=== PATIENT | male | born 1950 | race Caucasian/White ===

== ENCOUNTER 2017-07-05 02:36 | Emergency (ER) | payer MEDICARE, OTHER, SELFPAY ==
[2017-07-05 02:37] VITALS: BP 222/96; PULSE 67; RESP 24; TEMP 37.1; O2SAT 96; BMI 34.7
[2017-07-05 03:11] VITALS: BP 189/95; PULSE 67; RESP 18; O2SAT 96
[2017-07-05] MEDS: fentaNYL 100 MCG/2 ML Ampul 25 MCG IV (03:20)
[2017-07-05 03:42] LABS: D-Dimer Quantitative (DVT/PE) 2.81 FEU/ug/m (0.27-0.49)
--- NOTE | 2017-07-05 03:46 | ED.RN ---
LAB CALLS FOR CRITICAL RESULT, D-DIMER 2.81, DR. FOSTER MADE AWARE.
--- NOTE | 2017-07-05 03:57 | VDLE_ITS ---
Reason For Study: pain RIGHT LEFT CFV is compressible, spontaneous, phasic, GSV is normal. competent and demonstrates normal CFV is compressible, spontaneous, phasic, augmentation. competent, and demonstrates normal Procedure augmentation. Exam performed portable in ED. FV is compressible, spontaneous, phasic, The exam was diagnostic. competent and demonstrates normal Difficult study due to pt positioning. augmentation. A preliminary report was called and/or faxed POP V is compressible, spontaneous, phasic, to Dr. Stone. competent and demonstrates normal augmentation. T/P Trunk is compressible. PTV is compressible. LT PerV is compressible. Interpretation Summary There is no evidence of left lower extremity deep vein thrombosis. Left greater saphenous vein appears patent and compressible segmentally. Normal flow patterns right common femoral vein Ordering Physician: Ciaran Stone Performed By: Antonio Olson RVT
[2017-07-05] MEDS: Acetaminophen 500 MG Tablet 1000 MG PO (04:04)
[2017-07-05] MEDS: Morphine 4 MG/ML Syringe IV (04:05)
[2017-07-05] MEDS: fentaNYL 25 MCG Patch TRANSDERM. (04:26)
[2017-07-05 04:30] VITALS: BP 174/93; PULSE 64; RESP 17
--- NOTE | 2017-07-05 05:18 | ED.VISSUMM ---
- ER Visit Summary Date of Service: 07/05/17 Chief Complaint: Left leg pain History of Present Illness: The patient is a [address] Ramos. He has a history of a left total hip arthroplasty June [address] Reilly at [facility]. He was discharged June 22. He was doing well and participating in therapy. He reports that 3 days ago he developed pain in his left calf and foot. He states that it is an aching pain that is 10 out of 10 in severity. It is worsened by laying down. It is partially relieved by oxycodone and Tylenol. He had been using this 1 pill every 4, but for the past 24 hours he has been taking 2 pills every 4 without relief. Patient denies any fever, chills, chest pain, or shortness of breath. 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 Physical Examination: Vitals: Stable. Afebrile. General: Well-nourished and well-developed. Head: Normocephalic atraumatic. Neck: Supple, no lymphadenopathy. No JVD. Nontender. Cardiovascular: Regular rate and rhythm. No murmurs. Respiratory: No respiratory distress. Clear to auscultation bilaterally. Abdominal: Soft, nontender, nondistended, normal bowel sounds. No guarding, rebound, or peritoneal signs. Back: Nontender. Extremities: Incision over the left hip is clean, dry, and intact. There is no erythema or induration. It is minimally tender to palpation. He has mild tenderness palpation over the left calf and a contusion here. He has no palpable cord or Homans sign. No peripheral edema. He has a 2+ dorsalis pedis pulse. Less than 2 second capillary refill. Skin: Normal color, no rash. Neurologic: Alert and oriented ?3. Cranial nerves II through XII are intact. Normal strength and sensation. Psych: Normal affect. Test Results: D-dimer is 2.81. Lower extremity Doppler is negative. Emergency Department Course and Treatment: Patient was given fentanyl IV. This did not improve his pain. He was given a dose of morphine IV, Tylenol p.o., and had a fentanyl patch placed. This did not improve his pain. He was given a dose of oxycodone p.o. Daughter would like to get a Doppler prior to going home. I offered to admit him here for intractable pain. I offered to transfer him to [facility] for intractable pain and on the off chance that this has something to do with his autoimmune limbic encephalitis. She does not want him to be admitted to the hospital. Treatment Plan: He will be discharged with a 25 mcg fentanyl patch instructed to use Tylenol and/or oxycodone for breakthrough pain. Contact the surgeon and their neurologist today for further evaluation. Return to the emergency department for any worsening symptoms. Disposition: To home in improved and stable condition. Impression: 1. Status post left total hip arthroplasty June 21, 2017. 2. Intractable left leg pain. This note was generated with [employer] dictation software. It may contain incorrect words, spelling, and punctuation that were not noted in review of the chart prior to signing ED Disposition - Plan for ED Patient: Chief Complaint: Lower Extremity Injury Instructions: ED Post Op Pain Additional Instructions: Follow-up with your neurologist and surgeon as soon as possible.
[2017-07-05] MEDS: oxyCODONE 5 MG Tablet 10 MG PO (05:36)
[2017-07-05 08:03] VITALS: BP 185/85; PULSE 62; RESP 20; O2SAT 96
== END 2017-07-05 08:05 | disposition home or self-care (01) ==
PROVIDERS: Emergency Provider Emergency Medicine; Family Provider Student in an Organized Health Care Education/Training Program; PCP Student in an Organized Health Care Education/Training Program
DX: M79.662 Pain in left lower leg (principal); M79.672 Pain in left foot; D89.89 Other specified disorders involving the immune mechanism, not elsewhere classified; G47.33 Obstructive sleep apnea (adult) (pediatric); Z96.642 Presence of left artificial hip joint; Z79.82 Long term (current) use of aspirin; Z79.891 Long term (current) use of opiate analgesic; Z79.899 Other long term (current) drug therapy
CPT/HCPCS: 85379; 93971; 96374; 96375; 99285; A4216

== ENCOUNTER → 2017-11-20 11:34 | Outpatient (CLI) | payer MEDICARE, OTHER, SELFPAY ==
[2017-11-20 12:46] LABS: PSA,Total - Annual Screen 0.91 ng/mL (0.00-4.00)
== END ==
PROVIDERS: Family Provider Student in an Organized Health Care Education/Training Program; PCP Student in an Organized Health Care Education/Training Program; Referring Provider Urology; Visit Provider Urology
DX: Z12.5 Encounter for screening for malignant neoplasm of prostate (principal)
CPT/HCPCS: 36415; 84153; G0103

== ENCOUNTER → 2018-04-04 17:34 | Outpatient (CLI) | payer MEDICARE, OTHER, SELFPAY | PROVIDERS: Family Provider Student in an Organized Health Care Education/Training Program; PCP Student in an Organized Health Care Education/Training Program; Referring Provider Otolaryngology; Visit Provider Otolaryngology | DX: J32.9 Chronic sinusitis, unspecified (principal) | CPT/HCPCS: 87070; 87077; 87186; 87205 ==

== ENCOUNTER → 2018-11-28 | Outpatient (CLI) | payer MEDICARE, OTHER, SELFPAY | END | disposition home or self-care (01) | PROVIDERS: Family Provider Student in an Organized Health Care Education/Training Program; PCP Student in an Organized Health Care Education/Training Program; Referring Provider Urology; Visit Provider Urology | DX: Z12.5 Encounter for screening for malignant neoplasm of prostate (principal) | CPT/HCPCS: 36415; 84153; G0103 ==

== ENCOUNTER → 2020-12-27 14:58 | Outpatient (CLI) | payer MEDICARE, OTHER, SELFPAY | PROVIDERS: PCP Student in an Organized Health Care Education/Training Program; Referring Provider Urology; Visit Provider Urology | DX: Z12.5 Encounter for screening for malignant neoplasm of prostate (principal) | CPT/HCPCS: 36415; 84153; G0103 ==

== ENCOUNTER → 2021-07-22 | Outpatient (CLI) | payer MEDICARE, OTHER, SELFPAY | END | disposition home or self-care (01) | LOC: LABSPEC 14:53 | PROVIDERS: PCP Student in an Organized Health Care Education/Training Program; Referring Provider Otolaryngology; Visit Provider Otolaryngology | DX: J01.90 Acute sinusitis, unspecified (principal) | CPT/HCPCS: 87070; 87077; 87186; 87205 ==

== ENCOUNTER 2024-11-15 12:20 | Emergency (ER) | payer MEDICARE, OTHER, SELFPAY ==
[2024-11-15 12:23] VITALS: BP 169/86; PULSE 68; RESP 20; TEMP 36.9; O2SAT 96
--- NOTE | 2024-11-15 12:59 | EX.ED.UPPERE ---
HPI History of Present Illness HPI Narrative: Patient presents with right upper extremity swelling that has been getting worse over the past 2 days. Patient has a history of short-term memory loss and does not remember what happened. Family noted some bruising to his right upper arm. Family also noted a wound on the dorsal aspect of his right forearm. Patient denies any redness or swelling. Patient denies any fevers or chills. Patient denies any paresthesias or weakness. Family states patient's last tetanus was more than 10 years ago. Chief Complaint: Edema Informant: patient and family Onset/Context/Timing Onset: Days (2) Context: Gradual Onset Timing: Continuous Quality of Pain: Dull Location: Right wrist and hand Worsened by: Squeezing his fingers Relieved by: Nothing Associated Symptoms Associated Symptoms: Negative for Parasthesia or Weakness Narrative Tetanus Immunization: >10 years [facility] Medical History (Updated 11/15/24 @ 14:[address] Mack Ward, DO) Short-term memory loss Home Medications ?Medication ?Instructions ?Recorded ?Last Taken ?Type aspirin 81 mg chewable tablet 81 mg PO DAILY@0800 08/22/15 Unknown History citalopram 20 mg tablet 20 mg PO DAILY 08/22/15 Unknown History lacosamide 100 mg tablet (Vimpat) 100 mg PO BID 08/22/15 Unknown History lamotrigine 200 mg tablet 200 mg PO BID 08/22/15 Unknown History (Lamictal) qdioaynn-njz-vcmyd acid 0.4 1 ea PO DAILY 08/22/15 Unknown History mg-lycopene 300 mcg-lutein 250 mcg tablet (Centrum Silver) oxybutynin chloride 5 mg tablet 10 mg PO DAILY 08/22/15 Unknown History prednisone 5 mg tablet 5 mg PO DAILY IMMUNE SYSTEM 08/22/15 Unknown History topiramate 50 mg tablet 100 mg PO BID 08/22/15 Unknown History acetaminophen 500 mg tablet 1,000 mg PO Q8 PAIN 07/05/17 Unknown History (Tylenol Extra Strength) ascorbic acid (vitamin C) 1,000 mg 1,000 mg PO 07/05/17 Unknown History tablet (Vitamin C) ferrous sulfate 325 mg (65 mg 325 mg PO 07/05/17 Unknown History iron) tablet (Iron (ferrous sulfate)) mirabegron 50 mg tablet,extended 50 mg PO DAILY URINARY ISSUES 07/05/17 Unknown History release 24 hr (Myrbetriq) oxycodone 5 mg tablet 10 mg PO Q4H PRN PRN Pain 07/05/17 Unknown History cephalexin 500 mg capsule 500 mg PO Q6 #40 CAPSULES 11/15/24 Unknown Rx Allergy/AdvReac Type Severity Reaction Status Date / Time No Known Allergies Allergy Verified 11/15/24 12:22 Surgical History (Updated 11/15/24 @ 14:[address] Mack Ward DO) Hx of cholecystectomy Social History housing: house Smoking Status: Never smoker ROS ROS ED Constitutional Constitutional ED: Denies chills or fever(s) Eyes Eyes: Denies blurry vision or change in vision ENT ENT ED: Denies rhinorrhea or sore throat Cardiovascular Cardiovascular: Denies chest pain or palpitations Respiratory/Chest Respiratory/Chest: Denies cough or dyspnea Gastrointestinal Gastrointestinal: Denies nausea or vomiting Genitourinary Genitourinary ED: Denies dysuria or hematuria Musculoskeletal Musculoskeletal: Denies back pain or neck pain Integumentary Denies abscess or rash Neurologic Neurologic: Denies headache(s) or weakness Allergic/Immunologic Allergic/Immunologic ED: Denies mouth swelling or urticaria EXAM Physical Exam Const Vital Signs: 11/15/24 12:23 11/15/24 12:37 Temperature 98.4 F Temperature Source Temporal Pulse Rate 68 Respiratory Rate 20 H Respiratory Effort Normal Non-Labored Respiratory Pattern Normal Blood Pressure 169/86 H Blood Pressure Mean 113 Pulse Ox 96 Positive well nourished and well developed General Appearance ED: well developed and NAD HEENT Reports moist mucous membranes Neck full ROM and supple Extremity Extremity Narrative: There is some mild edema and ecchymosis over the medial aspect of the right upper arm. There is no bony crepitance or step-off. There is no deformity noted. There is a superficial healing laceration over the dorsal aspect of the mid forearm. There is no erythema. There is mild warmth. There is edema of the right wrist and hand. There is no ecchymosis. There is no deformity. There is good range of motion. Sensation was intact to light touch in the radial, median, and ulnar areas. Strength is 5/5 in the radial, median, and ulnar areas. Radial pulses are equal bilaterally. Neuro oriented x3, CN's II-XII intact bilaterally, moves all extremities, no focal motor deficits and no sensory deficits noted Sensorium / Orientation: alert Motor Exam: strength 5/5 throughout Psych mental status grossly normal MDM MDM MDM Narrative Medical decision making narrative: Differential diagnosis includes cellulitis, contusion, wound infection, and peripheral edema. CBC will be obtained to assess for leukocytosis and anemia. Basic metabolic profile will be obtained to assess for electrolyte abnormality and renal function. Serum lactate will be obtained to assess for sepsis. PT with INR and PTT will be obtained to assess for coagulopathy. Lab Data Attestation: I reviewed the patient's lab results. Lab results narrative: CBC was reviewed and was within normal limits. Basic metabolic profile was reviewed and was essentially within normal limits. Serum lactate was reviewed and was normal at 1.5. PT with INR and PTT were reviewed and were within normal limits. Treatment and Re-Evaluation Narrative: Patient was given a tetanus booster. Patient was advised of his findings. Patient was instructed to keep the right upper extremity elevated. Patient was given a dose of Keflex here. Patient was given a prescription for Keflex. Patient was instructed to follow-up with his primary care physician in 5 to 7 days. Patient and family understood and were agreeable with the plan. All questions were answered. Discharge Plan Triage Chief Complaint: Edema ED Provider: Mack Ward Dx/Rx/DC Orders Clinical Impression: Abrasion of right forearm, Contusion of right arm, Peripheral edema Instructions: ED Abrasion, ED Peripheral Edema, Unilateral Prescriptions: New cephalexin 500 mg capsule 500 mg PO Q6 Qty: 40 0RF No Action lamotrigine [Lamictal] 200 MG tablet 200 mg PO BID Patient Comments: FOR BRAIN SWELLING prednisone 5 MG tablet 5 mg PO DAILY citalopram 20 MG tablet 20 mg PO DAILY aspirin 81 MG tablet,chewable 81 mg PO DAILY@0800 oxybutynin chloride 5 MG tablet 10 mg PO DAILY topiramate 50 MG tablet 100 mg PO BID nvheqeza-ybc-BS-lycopen-lutein [Centrum Silver] 1 EACH tablet 1 ea PO DAILY lacosamide [Vimpat] 100 MG tablet 100 mg PO BID mirabegron [Myrbetriq] 50 MG tablet extended release 24 hr 50 mg PO DAILY Patient Comments: ascorbic acid (vitamin C) [Vitamin C] 1,000 MG tablet 1,000 mg PO acetaminophen [Tylenol Extra Strength] 500 MG tablet 1,000 mg PO Q8 ferrous sulfate [Iron (ferrous sulfate)] 325 MG tablet 325 mg PO oxycodone 5 MG tablet 10 mg PO Q4H PRN PRN (Reason: Pain) Primary Care Provider: Care Physician,No Primary Referrals: Bob Ramos DO [Non-Staff, Medical] - 5-7 Days Print Language: Cook Islander Disposition Disposition: Home, Self Care
[2024-11-15 13:25] LABS: Hematocrit 44.7 % (40-54); Hemoglobin 15.0 g/dL (13.0-16.5); Immature Granulocytes Count 0.030 X10^3/uL (0.0-0.0); Mean Corp Hgb Conc 33.6 g/dL (32-36); Mean Corpuscular Volume 90.3 fL (80-94); Mean Platelet Vol. 9.5 fl (6.2-12.0); NRBC Flagged by Analyzer 0 % (0-5); Platelet Count 142 K/mm3 (150-450); RBC Distribution Width CV 13.1 % (11.6-14.6); RBC Distribution Width SD 43.0 fl (35.1-43.9); Red Blood Count 4.95 M/mm3 (4.6-6.2); White Blood Count 8.9 K/mm3 (4.4-11.0)
[2024-11-15 13:33] LABS: Prothrombin Time (Protime)PT. 14.0 SECONDS (11.7-14.9)
--- OUTSIDE RECORDS SUMMARY | 2024-11-15 13:38 | XMS RPT_ITS | CCD ---
Author Organization [facility] Care Team Providers Care Hearing Consultant Name Role Phone Juan José Trejo Unavailable Jade Moncada Unavailable Unavailable RAJIV GONZALES Unavailable Unavailable RAJIV GONZALES Unavailable Unavailable RAJIV GONZALES Unavailable Unavailable DANDY RAMOS DO Unavailable Unavailable PROVIDER, UNKNOWN Unavailable Unavailable Unavailable Primary Care Provider Unavailabl e Unavailable Primary Care Provider Unavailabl e Unavailable Primary Care Provider Unavailabl e SELF Referring Unavailable WILLIAMS SEXTON Attending Unavailable WILLIAMS SEXTON Referring Unavailable JOSEF BHATT Attending Unavailable JOSEF BHATT Referring Unavailable WILLIAMS SEXTON Attending Unavailable Allergies Allergy Classification Reported Allergen(s) Allergy Type Date of Onset Reaction(s) Facility (20 sources) Dust; Translations: [DUST] Propensity to adverse reactions 09-21-2005 [facility] Work Phone: (20 sources) Mold Extract; Translations: [MOLD] Drug Allergy 09-21-2005 Intolerance [facility] Work Phone: (20 sources) Primidone; Translations: [PRIMIDONE] Drug Allergy 06-14-2015 Unknown [facility] (20 sources) Tree; Translations: [TREES] Propensity to adverse reactions 09-21-2005 Intolerance [facility] Work Phone: Medications Current Medications Medication Drug Class(es) Dates Sig (Normalized) Sig (Original) [id number] 200 actuat albuterol 0.09 mg/actuat metered dose inhaler (20 sources) beta2-Adrenergic Agonist Start: 08-07-2024 End: 08-07-2024 take 2 puff(s) by inhalation every six hours as needed for wheezing albuterol HFA (PROVENTIL HFA, VENTOLIN HFA) 90 mcg/actuation inhaler Indications: Wheezing Inhale 2 puffs as instructed every 6 hours as needed for wheezing/shortnes s of breath. 8 g 08/07/2024 Active Start: 02-06-2019 End: 08-07-2024 take 2 puff(s) by inhalation every four hours as needed albuterol sulfate (PROAIR RESPICLICK) 90 mcg/actuation aepb Inhale 2 Puffs as instructed every 4 hours as needed. 1 Inhaler 1 02/06/2019 08/07/2024 Discontinued (Course of therapy completed) Comment on above: Inhale 2 Puffs as in structed every 4 hours as needed. amoxicillin 875 mg / clavulanate 125 mg oral tablet (1 source) Penicillin-class Antibacterial Start: 2 End: 2 take 1 tablet by mouth twice daily amoxicillin-clavula iza acid (AUGMENTIN) 875-125 mg per tablet Indications: Acute sinusitis, recurrence not specified, unspecified location Take 1 tablet by mouth twice daily for 10 days. 20 tablet 0 07/14/2021 07/24/2021 Active Comment on above: Take 1 tablet by [facility] twice daily for 10 days. benzonatate 100 mg oral capsule (2 sources) Non-narcotic Antitussive Start: 5 End: 5 take 1 capsule by mouth every eight hours as needed benzonatate (TESSALON PERLE) 100 mg capsule Take 1 capsule by mouth three times a day as needed for cough for up to 7 days. 21 capsule 08/07/2024 08/14/2024 Active Start: 07-14-2021 End: 07-24-2021 take 2 capsules by mouth three times daily as needed benzonatate (TESSALON PERLE) 100 mg capsule Indications: Acute sinusitis, recurrence not specified, unspecified location Take 2 capsules by mouth three times daily as needed for up to 10 days. 60 capsule 0 07/14/2021 07/24/2021 Active Comment on above: Take 2 capsules by [facility] three times daily as needed for up to 10 days. citalopram 20 mg oral tablet (20 sources) Serotonin Reuptake Inhibitor Start: 03-03-2021 End: 04-01-2025 take 1 tablet by mouth once daily citalopram (CELEXA) 20 mg tablet Indications: Recurrent major depression in partial remission Take 1 tablet by mouth once daily. 30 tablet 11 04/01/2024 04/01/2025 Active Start: 10-18-2016 CELEXA 20 MG T ABS daily CITALOPRAM HYDROBROMIDE [id number] Juan José Trejo Comment on above: Take 1 tablet by [facility] th once daily. CPAP/BIPAP/OTHER (20 sources) Start: 07-13-2023 End: 11-27-2050 CPAP/BIPAP/OTHER AutoCPAP 11-20 cmH2O DME [facility] 1 Each 07/13/2023 11/27/2050 Active Start: 07-13-2023 End: 11-27-2050 CPAP/BIPAP/OTHER AutoCPAP 11 -20 cmH2O DME [facility] 1 Each 0 07/13/2023 11/27/2050 Active Start: 03-12-2023 End: 07-13-2023 CPAP/BIPAP/OTHER New supplie s: Pressure change: Setting 11 cm H2O, suitable mask per pt preference, chin strap, head gear, humidity, tubing, lifetime supplies. G47.33 RAIZA 1 Each 03/12/2023 07/13/2023 Discontinued Start: 03-12-2023 End: 07-27-2050 CPAP/BIPAP/OTHER New supplie s: Pressure change: Setting 11 cm H2O, suitable mask per pt preference, chin strap, head gear, humidity, tubing, lifetime supplies. G47.33 RAIZA 1 Each 03/12/2023 07/27/2050 Active Start: 08-22-2022 End: 01-06-2050 CPAP/BIPAP/OTHER Pressure ch maurice: Setting 11 cm H2O, suitable mask per pt preference, chin strap, head gear, humidity, tubing, lifetime supplies. G47.33 RAIZA 1 Each 0 08/22/2022 01/06/2050 Active Start: 05-30-2022 End: 10-14-2049 CPAP/BIPAP/OTHER New set up: Settings 8 - 14 cm H2O, suitable mask per pt preference, chin strap, head gear, humidity, tubing, lifetime supplies. G47.33 RAIZA 1 Each 0 05/30/2022 10/14/2049 Active Comment on above: New set up: Settings 8 - 14 cm H2O, suitable mask per pt preference, chin strap, head gear, humidity, tubing, lifetime supplies. G47.33 RAIZA Pressure change: Set ting 11 cm H2O, suitable mask per pt preference, chin strap, head gear, humidity, tubing, lifetime supplies. G47.33 RAIZA New supplies: Pressu re change: Setting 11 cm H2O, suitable mask per pt preference, chin strap, head gear, humidity, tubing, lifetime supplies. G47.33 RAIZA doxycycline hyclate 100 mg oral tablet (1 source) Tetracycline-class Drug Start: End: take 1 tablet by mouth twice daily doxycycline (VIBRA-TABS) 100 mg tablet Take 1 tablet by mouth two times a day for 5 days. 10 tablet 08/07/2024 08/12/2024 Active Inhalational Spacing Device (2 sources) Start: End: Inhalational Spacing Device Indications: Wheezing 1 device one time only for 1 dose. 1 each 08/07/2024 08/07/2024 Active Start: 08-07-2024 End: 08-07-2024 Inhalational Spacing Device 1 device one time only for 1 dose. 1 each 08/07/2024 08/07/2024 Discontinued (Course of therapy completed) lamoTRIgine 200 mg oral tablet (20 sources) Mood Stabilizer, Anti-epileptic Agent Start: 03-03-2021 End: 04-01-2025 take 1 tablet by mouth twice daily lamoTRIgine (LAMICTAL) 200 mg tablet Indications: Partial epilepsy with impairment of consciousness (HCC) Take 1 tablet by mouth two times a day. 60 tablet 11 04/01/2024 04/01/2025 Active Start: 10-18-2016 LAMICTAL 200 M G TABS twice daily LAMOTRIGINE [id number] Juan José Trejo Comment on above: Take 1 tablet by [facility] th twice daily. Take 1 tablet by [facility] th two times a day. magnesium oxide 420 mg oral tablet (18 sources) take 1 tablet by mouth once daily Magnesium Oxide 420 mg tab Take 1 tablet by mouth once daily. Takes during the winter Active Comment on above: Take 1 tablet by [facility] th once daily. Takes during the winter mecobalamin, vitamin B12, 5,000 mcg chew (18 sources) take 1 tablet by mouth once daily mecobalamin, vitamin B12, 5,000 mcg chew Take 1 tablet by mouth once daily. Takes during the winter months Active take 1 tablet by mouth once katharina y mecobalamin, vitamin B12, 5,000 mcg chew Take 1 tablet by mouth once daily. Takes during the winter 0 Active Comment on above: Take 1 tablet by [facility] th once daily. Takes during the winter 24 hr mirabegron 50 mg extended release oral tablet (20 sources) beta3-Adrenergic Agonist Start: 03-30-2017 take 50 mg by mouth once daily MYRBETRIQ 50 mg Tb24 Take 50 mg by mouth once daily. 5 03/30/2017 Active Comment on above: Take 50 mg by mouth once daily. multivit-min/FA/lycop en/lutein (CENTRUM SILVER MEN ORAL) (20 sources) multivit-min/FA/ lyc open/lutein (CENTRUM SILVER MEN ORAL) Take by mouth once daily. Active multivit-min/FA/ lycopen/lutein (CENTRUM SILVER MEN ORAL) Take by mouth once daily. 0 Active Comment on above: Take by mouth once d aily. 24 hr oxybutynin chloride 10 mg extended release oral tablet (20 sources) Cholinergic Muscarinic Antagonist Start: 07-13-2023 take 1 tablet by mouth every hour oxybutynin ER (DITROPAN XL) 10 mg 24 hr tablet Take 1 tablet by mouth every afternoon. 07/13/2023 Active Start: 10-18-2016 DITROPAN XL 10 MG [id number] OXYBUTYNIN CHLORIDE [id number] Juan José Trejo Start: 03-31-2015 End: 03-22-2023 take 1 tablet by mouth once daily oxybutynin ER (DITROPAN XL) 10 mg 24 hr tablet Take 1 tablet by mouth once daily. 0 03/31/2015 03/22/2023 Discontinued Comment on above: Take 1 tablet by [facility] th once daily. predniSONE 2.5 mg oral tablet (20 sources) Start: 03-03-2021 End: 04-01-2025 take 1 tablet by mouth once daily predniSONE (DELTASONE) 2.5 mg tablet Indications: Partial epilepsy with impairment of consciousness (HCC) Take 1 tablet by mouth once daily. 30 tablet 11 04/01/2024 04/01/2025 Active Comment on above: Take 1 tablet by [facility] th once daily. topiramate 100 mg oral tablet (20 sources) Anti-epileptic Agent Start: 03-03-2021 End: 04-01-2025 take 1 tablet by mouth once daily topiramate (TOPAMAX) 100 mg tablet Indications: Partial epilepsy with impairment of consciousness (HCC) Take 1 tablet by mouth once daily. 30 tablet 11 04/01/2024 04/01/2025 Active Start: 10-18-2016 TOPAMAX 100 MG TABS twice daily TOPIRAMATE [id number] Juan José Trejo Comment on above: Take 1 tablet by [facility] th once daily. zinc gluconate 50 mg oral tablet (18 sources) take 1 tablet by mouth once daily Zinc Gluconate 50 mg tablet Take 50 mg by mouth once daily. During winter Active Comment on above: Take 50 mg by mouth once daily. During winter Completed/Discontinued Medications Medication Drug Class(es) Dates Sig (Normalized) Sig (Original) albuterol 0.833 mg/ml / ipratropium bromide 0.167 mg/ml inhalation solution (2 sources) Anticholinergic, beta2-Adrenergic Agonist Start: 08-07-2024 End: 08-07-2024 ipratropium-albute rol 3 mL nebulizer solution (DUONEB) Start: 08-07-2024 End: 08-07-2024 take 1 dose by inhalation once 3 mL, INHALATION, ONCE, 1 dose, On [facility] 08/07/24 at 0900, PROTECT FROM LIGHT. The unit-dose vial should remain stored in the protective foil pouch until time of use. ascorbic acid 500 mg oral tablet (20 sources) Vitamin C Start: 06-22-2017 End: 05-30-2022 take 1 tablet by mouth twice daily at mealtime ascorbic acid, vitamin C, (VITAMIN C) 500 mg tablet Take 1 tablet by mouth twice daily with meals. 60 tablet 0 06/22/2017 05/30/2022 Discontinued take 1 tablet by mouth once katharina y Ascorbic Acid (VITAMIN C) 1,000 mg tablet Take 1,000 mg by mouth once daily. Takes during winter Active Comment on above: Take 1 tablet by [facility] th twice daily with meals. Take 1,000 mg by [facility] th once daily. Takes during winter months aspirin 81 mg delayed release oral tablet (18 sources) Nonsteroidal Anti-inflammatory Drug Start: 06-22-2017 End: 03-22-2023 take 1 tablet by mouth twice daily aspirin, enteric coated (ASPIRIN, ENTERIC COATED) 81 mg EC tablet Take 1 tablet by mouth twice daily. 56 tablet 0 06/22/2017 03/22/2023 Discontinued Start: 10-18-2016 ASPIRIN 81 MG [facility] ASPIRIN [id number] Juan José Trejo Comment on above: Take 1 tablet by [facility] th twice daily. CPAP (14 sources) Start: 07-17-2019 End: 05-30-2022 CPAP Indications: RAIZA (obstructive sleep apnea) AutoPAP 11 cmH2O, mask (pt pref), chin strap, heated tubing & humidity, filters. Lifetime supplies. RAIZA: G47.33. Please fax 30 day download to [phone] (DME change please provide supplies) 1 Device 0 07/17/2019 05/30/2022 Discontinued Start: 07-17-2019 CPAP Indicatio ns: RAIZA (obstructive sleep apnea) AutoPAP 11 cmH2O, mask (pt pref), chin strap, heated tubing & humidity, filters. Lifetime supplies. RAIZA: G47.33. Please fax 30 day download to [phone] (DME change please provide supplies) 1 Device 0 07/17/2019 Active Start: 06-11-2019 End: 05-30-2022 CPAP Indications: RAIZA (obstr uctive sleep apnea) Set to fixed pressure CPAP 11 cmH2O. Dx: 327.23 1 Device 0 06/11/2019 05/30/2022 Discontinued Start: 06-11-2019 CPAP Indicatio ns: RAIZA (obstructive sleep apnea) Set to fixed pressure CPAP 11 cmH2O. Dx: 327.23 1 Device 0 06/11/2019 Active Comment on above: Set to fixed pressur e CPAP 11 cmH2O. Dx: 327.23 AutoPAP 11 cmH2O, ma sk (pt pref), chin strap, heated tubing & humidity, filters. Lifetime supplies. RAIZA: G47.33. Please fax 30 day download to [phone] (DME change please provide supplies) docusate sodium 100 mg oral capsule (7 sources) Start: 8 End: 3 take 1 capsule by mouth twice daily docusate sodium (COLACE) 100 mg capsule Take 1 capsule by mouth twice daily. 60 capsule 0 06/22/2017 05/30/2022 Discontinued Comment on above: Take 1 capsule by mo [facility] twice daily. ferrous sulfate 325 mg oral tablet (7 sources) Start: 8 End: 3 take 1 tablet by mouth twice daily at mealtime ferrous sulfate 325 mg (65 mg iron) tablet Take 1 tablet by mouth twice daily with meals. 60 tablet 0 06/22/2017 05/30/2022 Discontinued Comment on above: Take 1 tablet by [facility] twice daily with meals. demarco root 250 mg oral capsule (7 sources) End: 3 take 1 capsule by mouth once daily Demarco, Zingiber officinalis, 250 mg cap Take 1 capsule by mouth once daily. 0 05/30/2022 Discontinued Comment on above: Take 1 capsule by mo [facility] once daily. lacosamide 100 mg oral tablet (20 sources) Anti-epileptic Agent Start: 2 End: 6 take 1 tablet by mouth twice daily lacosamide (VIMPAT) 100 mg tab Indications: Partial epilepsy with impairment of consciousness (HCC) Take 1 tablet by mouth two times a day for 180 days. 60 tablet 5 04/02/2024 10/23/2024 Discontinued Start: 10-18-2016 VIMPAT 100 MG TABS twice daily LACOSAMIDE [id number] Juan José Trejo Comment on above: Take 1 tablet by [facility] twice daily for 180 days. Take 1 tablet by [facility] twice daily. Take 1 tablet by [facility] two times a day for 90 days. Take 1 tablet by [facility] two times a day. Take 1 tablet by [facility] two times a day for 180 days. MULTIPLE VITAMINS-MINERALS (2 sources) Start: 10-18-2016 CENTRUM SILVER 50+MEN TABS MULTIPLE VITAMINS-MINERALS [id number] Juan José Trejo Multivitamins-Minera ls-Lutein (CENTRUM SILVER) Tab (6 sources) Start: 10-14-2012 take 1 tablet by mouth once daily Multivitamins-Minerals -Lutein (CENTRUM SILVER) Tab Take 1 tablet by mouth once daily. 0 10/14/2012 Active Comment on above: Take 1 tablet by [facility] th once daily. Multivitamins-Minera ls-Lutein (CENTRUM SILVER) tab (1 source) Start: 10-14-2012 End: 05-30-2022 take 1 tablet by mouth once daily Multivitamins-Minerals -Lutein (CENTRUM SILVER) tab Take 1 tablet by mouth once daily. 0 10/14/2012 05/30/2022 Discontinued Comment on above: Take 1 tablet by [facility] th once daily. Drug Treatment Unknown - unknown (1 source) No information available. Turmeric extract (7 sources) End: 05-30-2022 take 2 tablets by mouth once daily TURMERIC (CURCUMIN MISC) Take 2 tablets by mouth once daily. 2 tab DA to equal 500 mg 0 05/30/2022 Discontinued take 2 tablets by mouth once shannen ly TURMERIC (CURCUMIN MISC) Take 2 tablets by mouth once daily. 2 tab DA to equal 500 mg 0 Active Comment on above: Take 2 tablets by mo uth once daily. 2 tab DA to equal 500 mg Problems Active Problems Problem Classification Problem Date Documented Da te Episodic/Chronic Chronic obstructive pulmonary disease and bronchiectasis (1 source) Bronchitis, not specified as acute or chronic; Translations: [Sinobronchitis] Onset: 08-07-2024 Episodic Disorders of lipid metabolism (20 sources) Hyperlipidemia; Translations: [Hyperlipidemia, unspecified] Onset: 09-06-2006 12-08-2009 Chronic Epilepsy; convulsions (20 sources) Mesiobasal limbic epilepsy; Translations: [Localization-relate d (focal) (partial) symptomatic epilepsy and epileptic syndromes with complex partial seizures, not intractable, without status epilepticus] Onset: 08-16-2009 08-16-2009 Chronic Essential hypertension (20 sources) Benign essential hypertension; Translations: [Essential (primary) hypertension] Onset: 09-21-2005 12-08-2009 Chronic Hyperplasia of prostate (20 sources) Benign prostatic hypertrophy without outflow obstruction; Translations: [Benign prostatic hyperplasia without lower urinary tract symptoms] Onset: 09-21-2005 12-08-2009 Chronic Influenza (1 source) Influenza-like illness; Translations: [Influenza due to unidentified influenza virus with other respiratory manifestations] 04-16-2024 Episodic Mood disorders (20 sources) Recurrent major depression in partial remission; Translations: [Major depressive disorder, recurrent, in partial remission] Onset: 05-13-2020 05-13-2020 Chronic Osteoarthritis (20 sources) Osteoarthritis of hip; Translations: [Osteoarthritis of hip, unspecified] Onset: 10-18-2016 11-01-2016 Chronic Other bone disease and musculoskeletal deformities (20 sources) Idiopathic aseptic necrosis of unspecified femur; Translations: [Avascular necrosis of bone of hip] Onset: 10-18-2016 11-01-2016 Chronic Other connective tissue disease (3 sources) Presence of left artificial hip joint; Translations: [Presence of left artificial hip joint] Onset: 08-02-2017 Chronic Other connective tissue disease (20 sources) History of repair of hip joint; Translations: [Presence of left artificial hip joint] Onset: 07-05-2017 07-05-2017 Chronic Other hereditary and degenerative nervous system conditions (20 sources) Intention tremor; Translations: [Other specified forms of tremor] Onset: 10-22-2014 10-22-2014 Chronic Other lower respiratory disease (2 sources) Cough; Translations: [Acute cough] 08-07-2024 Episodic Other lower respiratory disease (1 source) Wheezing; Translations: [Wheezing] 08-07-2024 Episodic Other lower respiratory disease (1 source) Wheezing; Translations: [Wheezing] Onset: 08-07-2024 Episodic Other nutritional; endocrine; and metabolic disorders (7 sources) Obese class I; Translations: [Obesity, Class I, BMI 30-34.9] Onset: 04-01-2024 04-01-2024 Chronic Other upper respiratory infections (2 sources) Chronic sinusitis; Translations: [Chronic sinusitis, unspecified] Onset: 08-07-2024 08-07-2024 Chronic Other upper respiratory infections (1 source) Acute sinusitis; Translations: [Acute sinusitis, unspecified] Episodic Residual codes; unclassified (20 sources) Obstructive sleep apnea syndrome; Translations: [Obstructive sleep apnea (adult) (pediatric)] Onset: 03-31-2015 03-31-2015 Chronic Residual codes; unclassified (1 source) Central sleep apnea syndrome; Translations: [Primary central sleep apnea] 04-16-2023 Chronic Unclassified (1 source) No current problems or disability 10-18-2016 Unclassified (1 source) Acute cough; Translations: [Acute cough] Onset: 08-07-2024 Unclassified (1 source) Obesity, Class I, BMI 30-34.9; Translations: [Obesity, Class I, BMI 30-34.9] Onset: 04-01-2024 Past or Other Problems Problem Classification Problem Date Documented Da te Episodic/Chronic Encephalitis (except that caused by tuberculosis or sexually transmitted disease) (20 sources) Limbic encephalitis; 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 and encephalomyelitis, unspecified] Onset: 09-28-2009 09-28-2009 Episodic Gastritis and duodenitis (20 sources) Acute gastritis; Translations: [Acute gastritis without bleeding] Onset: 08-20-2008 08-20-2008 Episodic Other lower respiratory disease (20 sources) Lung mass; Translations: [Other nonspecific abnormal finding of lung field] Onset: 12-28-2009 12-28-2009 Episodic Other male genital disorders (20 sources) Testicular mass; Translations: [Other specified disorders of the male genital organs] Onset: 08-16-2009 08-16-2009 Episodic Other nervous system disorders (20 sources) Other abnormal involuntary movements; Translations: [Abnormal involuntary movements] Onset: 09-21-2005 Episodic Other non-traumatic joint disorders (20 sources) Hip pain; Translations: [Pain in left hip] Onset: 10-18-2016 10-18-2016 Episodic Residual codes; unclassified (20 sources) Illness, unspecified; Translations: [Other ill-defined conditions] Onset: 11-15-2009 11-15-2009 Episodic Skin and subcutaneous tissue infections (20 sources) Infection of nail; Translations: [Infection of nail] Onset: 09-06-2009 09-06-2009 Episodic Results Test Name Value Interpretation Reference Range Facility [facility] 08-07-2024 [facility] Office Visit (UCWSTR ) TERELL BELTRAN ([id number]) 1950 M Date Time Provider Department 08/07/24 8:30 AM JOSEF BHATT [facility] During your visit today, we recorded the following information about you: Temperature Pulse Respiration Blood pressure 98.7 degrees 65/minute 22/minute 170/84 Weight 85 kg Josef Bhatt APRN.CNP 08/07/2024 9:10 AM Signed Subjective HPI 74-year-old male presents urgent care chief complaint cough wheezing headache sore throat. Duration of symptoms 10 days. Associated symptoms listed above. Has used Cat-D this has helped some. Denies any known sick contacts. No chest pain fevers hemoptysis pleuritic pain nausea vomiting or abdominal pain. Does have some shortness of breath and wheezing when coughing fits. Has used albuterol in the past this has been helpful however he is currently out. 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 lamoTRIgine (LAMICTAL) 200 mg tablet Take 1 tablet by mouth two times a day. topiramate (TOPAMAX) 100 mg tablet Take 1 tablet by mouth once daily. predniSONE (DELTASONE) 2.5 mg tablet Take 1 tablet by mouth once daily. citalopram (CELEXA) 20 mg tablet Take 1 tablet by mouth once daily. oxybutynin ER (DITROPAN XL) 10 mg 24 hr tablet Take 1 tablet by mouth every afternoon. CPAP/BIPAP/OTHER AutoCPAP 11-20 cmH2O DME [facility] Zinc Gluconate 50 mg tablet Take 50 mg by mouth once daily. During winter months Magnesium Oxide 420 mg tab Take 1 tablet by mouth once daily. Takes during the winter months mecobalamin, vitamin B12, 5,000 mcg chew Take 1 tablet by mouth once daily. Takes during the winter months multivit-min/FA/lycopen /lutein (CENTRUM SILVER MEN ORAL) Take by mouth once daily. Ascorbic Acid (VITAMIN C) 1,000 mg tablet Take 1,000 mg by mouth once daily. Takes during winter months (Patient not taking: Reported on 08/07/2024) albuterol sulfate (PROAIR RESPICLICK) 90 mcg/actuation aepb Inhale 2 Puffs as instructed every 4 hours as needed. (Patient not taking: Reported on 08/07/2024) MYRBETRIQ 50 mg Tb24 Take 50 mg by mouth once daily. (Patient not taking: Reported on 08/07/2024) FAMILY HISTORY Problem Relation Age of Onset Colon Cancer Father Cancer Father lung cancer Coronary Artery Disease Father [place] Coronary Artery Disease Paternal Grandmother Coronary Artery Disease Paternal Grandfather Alzheimer's Disease Mother dementia Social History Tobacco Use Smoking status: Never Smokeless tobacco: Never Substance Use Topics Alcohol use: No Drug use: No BP 170/84 Pulse 65 Temp 37.1 ?C (98.7 ?F) Resp 22 Wt 85 kg (187 lb 6.3 oz) SpO2 98% BMI 31.18 kg/m? Review of Systems Constitutional: Negative for chills, fever and malaise/fatigue. HENT: Positive for congestion. Negative for ear discharge, ear pain, sinus pain and sore throat. Eyes: Negative for blurred vision, pain, discharge and redness. Respiratory: Positive for cough, shortness of breath and wheezing. Negative for hemoptysis, sputum production and stridor. Cardiovascular: Negative for chest pain. Gastrointestinal: Negative for abdominal pain, diarrhea, nausea and vomiting. Musculoskeletal: Negative for myalgias. Skin: Negative for itching and rash. Neurological: Negative for dizziness and headaches. Objective Physical Exam Constitutional: General: He is not in acute distress. Appearance: He is not diaphoretic. HENT: Head: Normocephalic. Jaw: No trismus, tenderness, swelling or pain on movement. Nose: Congestion present. Mouth/Throat: Mouth: Mucous membranes are moist. Pharynx: Oropharynx is clear. Uvula midline. No pharyngeal swelling, oropharyngeal exudate, posterior oropharyngeal erythema or uvula swelling. Eyes: Conjunctiva/sclera: Conjunctivae normal. Pupils: Pupils are equal, round, and reactive to light. Cardiovascular: Rate and Rhythm: Normal rate and regular rhythm. Heart sounds: Normal heart sounds. Pulmonary: Effort: Pulmonary effort is normal. No tachypnea, accessory muscle usage or (more content not included)... Normal [facility] XR CHEST 2V FRONTAL/LATon XR CHEST 2V FRONTAL/LAT * * *Final Report* * * DATE OF EXAM: Aug 07 2024 8:49AM WOX [id number] - XR CHEST 2V FRONTAL/LAT / PROCEDURE REASON: Acute cough * * * * Physician Interpretation * * * * EXAMINATION: CHEST RADIOGRAPH (2 VIEW FRONTAL and LATERAL) CLINICAL HISTORY: Acute cough MQ: XC2_6 EXAM DATE/TIME: 08/07/2024 8:49 AM COMPARISON: No relevant prior studies available. RESULT: Lines, tubes, and devices: None. Lungs and pleura: No consolidation. No lung mass. No pleural effusion. No pneumothorax. Cardiomediastinal silhouette: The cardiac-pericardial silhouette is prominent Bones and soft tissues: Unremarkable. IMPRESSION: Prominent cardiac-pericardiac silhouette. No evidence of pneumonia Public Safety Telecommunicator: [facility] Transcribe Date/Time: Aug 07 2024 8:57A Dictated by : ALECIA RODRIGUEZ MD This examination was interpreted and the report reviewed and electronically signed by: ALECIA RODRIGUEZ MD on Aug 07 2024 8:59AM EST [id number] Normal [facility] XR Chest PA and Lateralon IMPRESSION: Prominent cardiac-pericardiac silhouette. No evidence of pneumonia Public Safety Telecommunicator: [facility] Transcribe Date/Time: Aug 07 2024 8:57A Dictated by : ALECIA RODRIGUEZ MD This examination was interpreted and the report reviewed and electronically signed by: ALECIA RODRIGUEZ MD on Aug 07 2024 8:59AM EST DIVISION OF RADIOLOGY * * *Final Report* * * DATE OF EXAM: Aug 07 2024 8:49AM WOX 5291 - XR CHEST 2V FRONTAL/LAT / PROCEDURE REASON: Acute cough * * * * Physician Interpretation * * * * EXAMINATION: CHEST RADIOGRAPH (2 VIEW FRONTAL & LATERAL) CLINICAL HISTORY: Acute cough MQ: XC2_6 EXAM DATE/TIME: 08/07/2024 8:49 AM COMPARISON: No relevant prior studies available. RESULT: Lines, tubes, and devices: None. Lungs and pleura: No consolidation. No lung mass. No pleural effusion. No pneumothorax. Cardiomediastinal silhouette: The cardiac-pericardial silhouette is prominent Bones and soft tissues: Unremarkable. DIVISION OF RADIOLOGY Provider, Kendall Dillon - 08/07/2024 * * *Final Report* * * DATE OF EXAM: Aug 07 2024 8:49AM WOX 5291 - XR CHEST 2V FRONTAL/LAT / PROCEDURE REASON: Acute cough * * * * Physician Interpretation * * * * EXAMINATION: CHEST RADIOGRAPH (2 VIEW FRONTAL & LATERAL) CLINICAL HISTORY: Acute cough MQ: XC2_6 EXAM DATE/TIME: 08/07/2024 8:49 AM COMPARISON: No relevant prior studies available. RESULT: Lines, tubes, and devices: None. Lungs and pleura: No consolidation. No lung mass. No pleural effusion. No pneumothorax. Cardiomediastinal silhouette: The cardiac-pericardial silhouette is prominent Bones and soft tissues: Unremarkable. IMPRESSION IMPRESSION: Prominent cardiac-pericardiac silhouette. No evidence of pneumonia Public Safety Telecommunicator: [facility] Transcribe Date/Time: Aug 07 2024 8:57A Dictated by : ALECIA RODRIGUEZ MD This examination was interpreted and the report reviewed and electronically signed by: ALECIA RODRIGUEZ MD on Aug 07 2024 8:59AM EST [facility] Radiology Study observation (narrative) [facility] XR Chest PA and LateralOrder ed By: [facility] Provider on 08-07-2024 [facility] CNOVon 04-16-2024 CNOV Office Visit (WSTR ) TERELL BELTRAN ([id number]) 1950 M Date Time Provider Department 04/16/24 11:15 AM KEON JEAN [facility] During your visit today, we recorded the following information about you: Temperature Pulse Respiration Blood pressure 98 degrees 64/minute 16/minute 162/88 Weight 86.3 kg Keon Jean MD 04/16/2024 12:24 PM Signed Patient presents with: Cough: Cough, sinus, congestion, ST and BONE x 1 week HPI: Feeling sick for 8 days. His has been sick also. They watch grandchildren who were ill and their daughter had influenza like illness too. 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 lamoTRIgine (LAMICTAL) 200 mg tablet Take 1 tablet by mouth two times a day. topiramate (TOPAMAX) 100 mg tablet Take 1 tablet by mouth once daily. predniSONE (DELTASONE) 2.5 mg tablet Take 1 tablet by mouth once daily. citalopram (CELEXA) 20 mg tablet Take 1 tablet by mouth once daily. oxybutynin ER (DITROPAN XL) 10 mg 24 hr tablet Take 1 tablet by mouth every afternoon. CPAP/BIPAP/OTHER AutoCPAP 11-20 cmH2O DME [facility] Zinc Gluconate 50 mg tablet Take 50 mg by mouth once daily. During winter months Ascorbic Acid (VITAMIN C) 1,000 mg tablet Take 1,000 mg by mouth once daily. Takes during winter Magnesium Oxide 420 mg tab Take 1 tablet by mouth once daily. Takes during the winter months mecobalamin, vitamin B12, 5,000 mcg chew Take 1 tablet by mouth once daily. Takes during the winter months albuterol sulfate (PROAIR RESPICLICK) 90 mcg/actuation aepb Inhale 2 Puffs as instructed every 4 hours as needed. multivit-min/FA/lycopen /lutein (CENTRUM SILVER MEN ORAL) Take by mouth once daily. MYRBETRIQ 50 mg Tb24 Take 50 mg by mouth once daily. No current facility-administered medications for this visit. ALLERGIES: ALLERGIES Allergen Reactions Dust Mold Intolerance Primidone Unknown Trees Intolerance VITALS: BP 162/88 Pulse 64 Temp 36.7 ?C (98 ?F) (Tympanic) Resp 16 Wt 86.3 kg (190 lb 4.1 oz) SpO2 96% BMI 31.66 kg/m? PHYSICAL EXAM: GEN: mildly ill appearing. Accompanied by his HEENT: PERRL, EOMI, conjunctiva clear Ears: canals clear. TMs without erythema, bulge, or effusion Sinuses: non-tender frontal sinus, non-tender maxillary sinuses Throat: moist mucous membranes, mild erythema, no exudate Neck: supple, no thyromegaly, no lymphadenopathy HEART: slow rate, regular rhythm, no murmurs LUNGS: clear to auscultation, no wheezes or crackles, no increased WOB ASSESSMENT/PLAN: 1. Influenza-like illness - ICD9: 487.1, ICD10: J11.1 Probable influenza (His tested positive for influenza A today). - suspect viral URI - Discussed supportive care treatment with rest, cough medicine, and analgesia. He declines prescription cough medicine and would prefer conservative management. Keon Jean MD Allergies As of Date: 04/16/2024 Noted Allergy Reaction DUST 09/21/2005 MOLD 09/21/2005 5 - Intolerance PRIMIDONE 06/14/2015 16 - Unknown TREES 09/21/2005 5 - Intolerance Date Reviewed: 04/16/2024 Reviewed by: Estela Garcia LPN - Fully Assessed Reason for Visit: Cough [28] Cmt: Cough, sinus, congestion, ST and BONE x 1 week Primary Visit Diagnosis:Influenza-lik e illness [J11.1] Prescriptions as of 04/16/2024 - lacosamide (VIMPAT) 100 mg tab Take 1 tablet by mouth two times a day for 180 days. - lamoTRIgine (LAMICTAL) 200 mg tablet Take 1 tablet by mouth two times a day. - topiramate (TOPAMAX) 100 mg tablet Take 1 tablet by mouth once daily. - predniSONE (DELTASONE) 2.5 mg tablet Take 1 tablet by mouth once daily. - citalopram (CELEXA) 20 mg tablet Take 1 tablet by mouth once daily. - oxybutynin ER (DITROPAN XL) 10 mg 24 hr tablet Take 1 tablet by mouth every afternoon. - CPAP/BIPAP/OTHER AutoCPAP 11-20 cmH2O DME [facility] - Zinc Gluconate 50 mg tablet Take 50 mg by mouth once daily. During winter months - Ascorbic Acid (VITAMIN C) 1,000 mg tablet Take 1,000 mg by mouth once daily. Takes during winter months - Magnesium Oxide 420 mg tab Take 1 tablet by mouth once daily. Takes during the winter months - mecobalamin, vitamin B12, 5,000 mcg chew (more content not included)... Normal [facility] CBC panel Auto (Bld)on 04-01 Erythrocyte distribution width (RBC) [Ratio] 12.6 % 11.5 - 15.0 % [facility] Hematocrit (Bld) [Volume fraction] 48.7 % 39.0 - 51.0 % [facility] Hemoglobin (Bld) [Mass/Vol] 16.3 g/dL 13.0 - 17.0 g/dL [facility] Interpretation and review of laboratory results Normal [facility] MCH (RBC) [Entitic mass] 30.4 pg 26.0 - 34.0 pg [facility] MCHC (RBC) [Mass/Vol] 33.5 g/dL 30.5 - 36.0 g/dL [facility] MCV (RBC) [Entitic vol] 90.9 fL 80.0 - 100.0 fL [facility] Nucleated RBC (Bld) [#/Vol] NINF [facility] Platelet mean volume (Bld) [Entitic vol] 9.5 fL 9.0 - 12.7 fL [facility] Platelets (Bld) [#/Vol] 157 10*3/uL [facility] RBC (Bld) [#/Vol] 5.36 10*6/uL 4.20 - 6.0 0 m/uL [facility] WBC (Bld) [#/Vol] 8.83 10*3/uL [facility] Erythrocyte distribution width (RBC) [Ratio] 12.6 % Normal 11.5-15.0 [facility] Comment on above: Order Comment: Speci men Type: BLOOD SPECIMENOrdering Facility: [facility] Address: [address] [place], [place] [id number] Performed By: #### 5 8410-2 ####[facility] [id number] [place] [address] [place] Hematocrit (Bld) [Volume fraction] 48.7 % Normal 39.0-51.0 [facility] Comment on above: Order Comment: Speci men Type: BLOOD SPECIMENOrdering Facility: [facility] Address: [address] [place] [address] Performed By: #### 5 8410-2 ####[facility] [id number] [place] [address] [place] Hemoglobin (Bld) [Mass/Vol] 16.3 g/dL Normal 13.0-17.0 [facility] Comment on above: Order Comment: Speci men Type: BLOOD SPECIMENOrdering Facility: [facility] Address: [address] [place] [address] Performed By: #### 5 8410-2 ####[facility] [id number] [place] [address] [place] MCH (RBC) [Entitic mass] 30.4 pg Normal 26.0-34.0 [facility] Comment on above: Order Comment: Speci men Type: BLOOD SPECIMENOrdering Facility: [facility] Address: [address] [place] [address] Performed By: #### 5 8410-2 ####[facility] [id number] [place] [address] [place] MCHC (RBC) [Mass/Vol] 33.5 g/dL Normal 30.5-36.0 [facility] Comment on above: Order Comment: Speci men Type: BLOOD SPECIMENOrdering Facility: [facility] Address: [address] [place] [address] Performed By: #### 5 8410-2 ####[facility] LABIA [id number] [place] [address] [place] MCV (RBC) [Entitic vol] 90.9 fL Normal 80.0-100.0 [facility] Comment on above: Order Comment: Speci men Type: BLOOD SPECIMENOrdering Facility: [facility] Address: [address] [place] [address] Performed By: #### 5 8410-2 ####[facility] LABIA [id number] [place] [address] [place] Nucleated RBC (Bld) [#/Vol] 10*3/uL Normal <0.01 [facility] Comment on above: Order Comment: Speci men Type: BLOOD SPECIMENOrdering Facility: [facility] Address: [address] [place] [address] Performed By: #### 5 8410-2 ####[facility] LABIA [id number] [place] [address] [place] Platelet mean volume (Bld) [Entitic vol] 9.5 fL Normal 9.0-12.7 [facility] Comment on above: Order Comment: Speci men Type: BLOOD SPECIMENOrdering Facility: [facility] Address: [address] [place] [address] Performed By: #### 5 8410-2 ####[facility] LABIA [id number] [place] [address] [place] Platelets (Bld) [#/Vol] 157 10*3/uL Normal 150-400 [facility] Comment on above: Order Comment: Speci men Type: BLOOD SPECIMENOrdering Facility: [facility] Address: [address] [place] [address] Performed By: #### 5 8410-2 ####[facility] LABIA [id number] [place] [address] [place] RBC (Bld) [#/Vol] 5.36 10*6/uL Normal 4.20-6.00 [facility] Comment on above: Order Comment: Speci men Type: BLOOD SPECIMENOrdering Facility: [facility] Address: [address] [place] [id number] Performed By: #### 5 8410-2 ####[facility] LABIA [id number] [place] [id number] [place] WBC (Bld) [#/Vol] 8.83 10*3/uL Normal 3.70-11.00 [facility] Comment on above: Order Comment: Speci men Type: BLOOD SPECIMENOrdering Facility: [facility] Address: [address] [place] [id number] Performed By: #### 5 8410-2 ####[facility] LABCLIA [id number] [place] [id number] [facility] [place] CNOVon 04-01-2024 CNOV Office Visit ([id number] ) TERELL BELTRAN ([id number]) 1950 M Date Time Provider Department 04/01/24 2:40 PM WILLIAMS SEXTON NE50MN During your visit today, we recorded the following information about you: Pulse Respiration Blood pressure Weight 66/minute 16/minute 166/83 86.2 kg Height 1.651 m Williams Sexton MD 04/01/2024 3:54 PM Signed [facility] FOLLOW UP EVALUATION: Patient Name: Terell Beltran : 1950 Date: April 01, 2024 CHIEF COMPLAINT: Limbic encephalitis related epilepsy HISTORY OF PRESENT ILLNESS: Terell Beltran is a 74 year old male with a 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 He was being tested for possible DBS therapy for his left sided tremor (but the evaluation appears to be on hold). He continues without any seizures since our last visit. He denies any side effects on the medication. He has continued to have some tremor related dysfunction that has progressed some (He is still able to feed himself and walk with no falls, but cannot walk on uneven surfaces). He has not had any seizures since our last visit. He continues to struggle with his memory, especially short term. He has not had any falls at home. Interval History: Seizure medication: LCM 100mg BID LTG 200mg BID TPM 100mg daily Side effects: sleeps a lot Seizures: There have been no seizures. His last seizure was >10 years ago. Other health: He continues to take Prednisone 2.5 mg PO Qdaily and Celexa 20mg QAM for depression. His mood has been good on Celexa. He had been taking aspirin daily, but stopped 1 year ago. No new medications, other than an temporary antibiotic last month for a cold (seen in urgent care). Component Latest Ref Rng AND Units 03/29/2017 03/19/2018 Lacosamide 2.2 - 19.8 ug/mL 4.7 6.0 Desmethyllacosamide <2.6 ug/mL 0.8 0.8 Lamotrigine 1 - 13 ug/mL 4.5 5.3 Topiramate 5.0 - 20.0 ug/mL 7.3 8.4 KAREN 02/16/2022: He has not had any seizures since our last visit. He denies any side effects on the medication. His tremors are slowly getting worse (He can feed himself, but has trouble with small foods like pees). He has not fallen but has come close several times. He had an ambulatory EEG done in February 2016 that was normal. Last autoimmune panel was negative 01/2016. He had left hip surgery on June 21, 2017. Patient reports no left him pain anymore. Tremor (Lt hand>Rt hand) is worse since the last visit. Continues to follow Dr. Galloway who recommends brain stimulation however patient is still not interested. Continues to have BONE when he is tired. If he uses CPAP, no headaches. is concerned about intermediate use of Prednisone for his bone health. Wants to know if it should be continued. Continues to take Celexa for depression. Otherwise he is stable overall. CURRENT AEDs: TPM 100 QAM LCM 100 BID LTG 200 BID CURRENT SEIZURE DESCRIPTION AND FREQUENCY: Seizure Type A: Autonomic Seizure vs Paroxysmal Events. He will feel light headed, then have tremors in both arms. He will have a far away look and a grimace on his face like he is going to cry. He may not respond appropriately and he may say I am okay during his events. He appears confused after the event is over. He is currently not having any episodes. PREVIOUS EVALUATIONS: EEG ([facility], 03/18/09 - 03/22/09): Interictal: None Ictal: Clinical seizure: Autonomic Seizure (28 recorded; 3-21P, 23-32P) EEG seizure: Regional, vertex Clinical seizure: Autonomic Aura (2 recorded; 1A, 2A) EEG seizure: No EEG change Clinical seizure: Paroxysmal Event (2 recorded; 5E, 22E) EEG seizure: No EEG change EEG: ([facility],02/11/09): Normal (Awake, Drowsy, Anterior temporal electrodes) 1 EEG: No EEG Change Seizure: Paroxysmal Event This EEG is within normal limits. The patient had one typical event (reporting he had an event, with observed twitching in lower lip) lasting less than 30 seconds, with no definite EEG correlate. No epileptiform abnormalities were recorded. Ambulatory EEG (03/20/16) Classification Normal (Awake, Sleep, 10-20 Scalp Electrodes) Impression This 23 hours 40 minutes ambulatory EEG is normal. Epileptiform activity and seizure patterns were not seen. The patient did not have any documented events during this period Video EEG :([facility], 02/12/09): Normal (Awake, Sleep) 1 EEG: No EEG Change Seizure: Paroxysmal Event This multi-hour EEG done from 8:14AM on 02/11/09 to 6:23AM on 02/12/09 is within normal limits. Multiple self-reported spells were captured with no apparent EEG change. No epileptiform activity or EEg seizures were seen during this study. Video EEG :([facility], 02/13/09): Normal (Awake, Sleep) This EEG is within normal limits. No epileptiform di (more content not included)... Normal [facility] Comprehensive metabolic 2000 panelon 04-01-2024 Albumin [Mass/Vol] 4.2 g/dL 3.9 - 4.9 g/dL [facility] ALP [Catalytic activity/Vol] 156 U/L High 38 - 113 U/L [facility] ALT [Catalytic activity/Vol] 54 U/L 10 - 54 U/L [facility] Anion gap [Moles/Vol] 11 mmol/L 8 - 15 mmol/L [facility] AST [Catalytic activity/Vol] 34 U/L 14 - 40 U/L [facility] Bilirubin [Mass/Vol] 0.6 mg/dL 0.2 - 1.3 mg/dL [facility] Calcium [Mass/Vol] 9.2 mg/dL 8.5 - 10. 2 mg/dL [facility] Chloride [Moles/Vol] 111 mmol/L High 98 - 107 mmol/L [facility] CO2 [Moles/Vol] 21 mmol/L Low 22 - 30 mmol/L [facility] Creatinine [Mass/Vol] 1.17 mg/dL 0.73 - 1.22 mg/dL [facility] GFR/1.73 sq M.predicted among non-blacks MDRD (S/P/Bld) [Vol rate/Area] 65 mL/min/{1.73_m2} - PINF [facility] Comment on above: Estimated Glomerular Filtration Rate (eGFR) is calculated using the 2020 CKD-EPI creatinine equation. This equation utilizes serum creatinine, sex, and age as parameters. The creatinine assay has traceable calibration to isotope dilution-mass spectrometry. Refer to KDIGO guidelines for clinical interpretation. In patients with unstable renal function, e.g. those with acute kidney injury, the eGFR may not accurately reflect actual GFR. Glucose [Mass/Vol] 79 mg/dL 74 - 99 mg/dL [facility] Comment on above: The [place] Diab[employer] s Association (ADA) provides guidance for cutoff values for fasting glucose and random glucose. The ADA defines fasting as no caloric intake for at least 8 hours. Fasting plasma glucose results between 100 to 125 mg/dL indicate increased risk for diabetes (prediabetes). Fasting plasma glucose results greater than or equal to 126 mg/dL meet the criteria for diagnosis of diabetes. In the absence of unequivocal hyperglycemia, results should be confirmed by repeat testing. In a patient with classic symptoms of hyperglycemia or hyperglycemic crisis, random plasma glucose results greater than or equal to 200 mg/dL meet the criteria for diagnosis of diabetes. Reference: Standards of Medical Care in Diabetes 2016, [place] Diabetes Association. Diabetes Care. 2016.39(Suppl 1). Interpretation and review of laboratory results Abnormal [facility] Potassium [Moles/Vol] 3.9 mmol/L 3.7 - 5.1 mmol/L [facility] Protein [Mass/Vol] 6.7 g/dL 6.3 - 8.0 g/dL [facility] Sodium [Moles/Vol] 143 mmol/L 136 - 144 mmol/L [facility] Urea nitrogen [Mass/Vol] 17 mg/dL 9 - 24 mg/dL [facility] Albumin [Mass/Vol] 4.2 g/dL Normal 3.9-4.9 [facility] Comment on above: Order Comment: Speci men Type: BLOOD SPECIMENOrdering Facility: [facility] Address: [address] [place] [address] Performed By: #### 2 4323-8 ####[facility] LABIA [id number] [place] [address] [place] ALP [Catalytic activity/Vol] 156 U/L High 38-113 [facility] Comment on above: Order Comment: Speci men Type: BLOOD SPECIMENOrdering Facility: [facility] Address: [address] [place] [address] Performed By: #### 2 4323-8 ####[facility] LABCLIA [id number] [place] [address] [place] ALT [Catalytic activity/Vol] 54 U/L Normal 10-54 [facility] Comment on above: Order Comment: Speci men Type: BLOOD SPECIMENOrdering Facility: [facility] Address: [address] [place] [address] Performed By: #### 2 4323-8 ####[facility] LABCLIA [id number] [place] [address] [place] Anion gap [Moles/Vol] 11 mmol/L Normal 8-15 [facility] Comment on above: Order Comment: Speci men Type: BLOOD SPECIMENOrdering Facility: [facility] Address: [address] [place] [address] Performed By: #### 2 4323-8 ####[facility] LABCLIA [id number] [address] [address] [place] AST [Catalytic activity/Vol] 34 U/L Normal 14-40 [facility] Comment on above: Order Comment: Speci men Type: BLOOD SPECIMENOrdering Facility: [facility] Address: [address] [place] [address] Performed By: #### 2 4323-8 ####[facility] LABCL[facility] [id number] [place] [address] [place] Bilirubin [Mass/Vol] 0.6 mg/dL Normal 0.2-1.3 [facility] Comment on above: Order Comment: Speci men Type: BLOOD SPECIMENOrdering Facility: [facility] Address: [address] [place] [address] Performed By: #### 2 4323-8 ####[facility] LABCL[facility] [id number] [place] [address] [place] Calcium [Mass/Vol] 9.2 mg/dL Normal 8.5-10.2 [facility] Comment on above: Order Comment: Speci men Type: BLOOD SPECIMENOrdering Facility: [facility] Address: [address] [place] [address] Performed By: #### 2 4323-8 ####[facility] LABCLIA [id number] [place] [address] [place] Chloride [Moles/Vol] 111 mmol/L High 98-107 [facility] Comment on above: Order Comment: Speci men Type: BLOOD SPECIMENOrdering Facility: [facility] Address: [address] [place] [address] Performed By: #### 2 4323-8 ####[facility] LABCLIA [id number] [place] [id number] [place] CO2 [Moles/Vol] 21 mmol/L Low 22-30 [facility] Comment on above: Order Comment: Speci men Type: BLOOD SPECIMENOrdering Facility: [facility] Address: [address] [place] [address] Performed By: #### 2 4323-8 ####[facility] LABIA [id number] [place] [address] [place] Creatinine [Mass/Vol] 1.17 mg/dL Normal 0.73-1.22 [facility] Comment on above: Order Comment: Speci men Type: BLOOD SPECIMENOrdering Facility: [facility] Address: [address] [place] [address] Performed By: #### 2 4323-8 ####[facility] LABIA [id number] [address] [place] Creatinine and Glomerular filtration rate.predicted panel (S/P/Bld) 65 mL/min/1.73m??? Normal >=60 [facility] Comment on above: Order Comment: Speci men Type: BLOOD SPECIMENOrdering Facility: [facility] Address: [address] [place] [address] Result Comment: Jacqueline mated Glomerular Filtration Rate (eGFR) is calculated using the 2020 CKD-EPI creatinine equation. This equation utilizes serum creatinine, sex, and age as parameters. The creatinine assay has traceable calibration to isotope dilution-mass spectrometry. Refer to KDIGO guidelines for clinical interpretation. In patients with unstable renal function, e.g. those with acute kidney injury, the eGFR may not accurately reflect actual GFR. Performed By: #### 2 4323-8 ####[facility] LABIA [id number] [place] [address] [place] Glucose [Mass/Vol] 79 mg/dL Normal 74-99 [facility] Comment on above: Order Comment: Speci men Type: BLOOD SPECIMENOrdering Facility: [facility] Address: [address] [place] [address] Result Comment: The [place] Diabetes Association (ADA) provides guidance for cutoff values for fasting glucose and random glucose. The ADA defines fasting as no caloric intake for at least 8 hours. Fasting plasma glucose results between 100 to 125 mg/dL indicate increased risk for diabetes (prediabetes). Fasting plasma glucose results greater than or equal to 126 mg/dL meet the criteria for diagnosis of diabetes. In the absence of unequivocal hyperglycemia, results should be confirmed by repeat testing. In a patient with classic symptoms of hyperglycemia or hyperglycemic crisis, random plasma glucose results greater than or equal to 200 mg/dL meet the criteria for diagnosis of diabetes. Reference: Standards of Medical Care in Diabetes 2016, [place] Diabetes Association. Diabetes Care. 2016.39(Suppl 1). Performed By: #### 2 4323-8 ####[facility] LABCLIA [id number] [place] [address] [place] Potassium [Moles/Vol] 3.9 mmol/L Normal 3.7-5.1 [facility] Comment on above: Order Comment: Speci men Type: BLOOD SPECIMENOrdering Facility: [facility] Address: [address] [place] [address] Performed By: #### 2 432-8 ####[facility] LABIA [id number] [place] [address] [place] Protein [Mass/Vol] 6.7 g/dL Normal 6.3-8.0 [facility] Comment on above: Order Comment: Sergei men Type: BLOOD SPECIMENOrdering Facility: [facility] Address: [address] [place] [address] Performed By: #### 2 432-8 ####[facility] LABCLIA [id number] [place] [address] [place] Sodium [Moles/Vol] 143 mmol/L Normal 136-144 [facility] Comment on above: Order Comment: Speci men Type: BLOOD SPECIMENOrdering Facility: [facility] Address: [address] [place] [address] Performed By: #### 2 4323-8 ####[facility] LABCLIA [id number] [place] [id number] [place] Urea nitrogen [Mass/Vol] 17 mg/dL Normal 9-24 [facility] Comment on above: Order Comment: Speci men Type: BLOOD SPECIMENOrdering Facility: [facility] Address: [address] [place] [address] Performed By: #### 2 4323-8 ####[facility] LABCLIA [id number] [address] [place] LACOSAMIDEon 04-01-2024 Lacosamide [Mass/Vol] 7.7 ug/mL Normal 2.2-19.8 [facility] Comment on above: Order Comment: Speci men Type: BLOOD SPECIMENOrdering Facility: [facility] Address: [address] [place] [address] Result Comment: Expe cted concentration of patients receiving 200-400 mg/day is 2.2-19.8 ug/mL for Lacosamide. This test was developed, and its performance characteristics determined by the [facility] Department of Pathology and Laboratory Medicine. It has not been cleared or approved by the FDA. The [facility] Department of Pathology and Laboratory Medicine is regulated under CLIA as qualified to perform high-complexity testing. This test is used for clinical purposes. It should not be regarded as investigational or for research. Performed By: #### L ACOS ####[facility] LABCLIA [id number] [place] [address] [place] lamoTRIgine SerPl-mCncon lamoTRIgine [Mass/Vol] 9.2 ug/mL Normal 1.0-13.0 [facility] Comment on above: Order Comment: Speci men Type: BLOOD SPECIMENOrdering Facility: [facility] Address: [address] [place] [address] Result Comment: This test was developed, and its performance characteristics determined by the [facility] Department of Pathology and Laboratory Medicine. It has not been cleared or approved by the FDA. The [facility] Department of Pathology and Laboratory Medicine is regulated under CLIA as qualified to perform high-complexity testing. This test is used for clinical purposes. It should not be regarded as investigational or for research. Performed By: #### 6 948-4 ####[facility] [id number] [address] [place] Sehna 03-03-2024 CNPN Telephone ([facility]) TERELL BELTRAN ([id number]) 1950 M Date Time Provider Department 03/03/24 GLORY KIRK [facility] During your visit today, we recorded the following information about you: Fady Espinoza OCCA 03/03/2024 4:14 PM Signed Faxed signed CMN and signed office notes. Refaxed office note dated 03/12/2023 that was originally sent on 06/01/2023 to [facility] at [phone]. Allergies As of Date: 03/03/2024 Noted Allergy Reaction DUST 09/21/2005 MOLD 09/21/2005 5 - Intolerance PRIMIDONE 06/14/2015 16 - Unknown TREES 09/21/2005 5 - Intolerance Date Reviewed: 09/25/2023 Reviewed by: Sana Franz MA - Fully Assessed Reason for Visit: Orders [681] Cmt: Faxed signed CMN and signed office notes. Refaxed office note dated 03/12/2023 that was originally sent on 06/01/2023 to [facility] at [phone]. Prescriptions as of 03/03/2024 - lacosamide (VIMPAT) 100 mg tab Take 1 tablet by mouth two times a day. - oxybutynin ER (DITROPAN XL) 10 mg 24 hr tablet Take 1 tablet by mouth every afternoon. - lamoTRIgine (LAMICTAL) 200 mg tablet Take 1 tablet by mouth two times a day. - topiramate (TOPAMAX) 100 mg tablet Take 1 tablet by mouth every morning. - predniSONE (DELTASONE) 2.5 mg tablet Take 1 tablet by mouth once daily. - citalopram (CELEXA) 20 mg tablet Take 1 tablet by mouth once daily. - CPAP/BIPAP/OTHER AutoCPAP 11-20 cmH2O DME [facility] - Zinc Gluconate 50 mg tablet Take 50 mg by mouth once daily. During winter - Ascorbic Acid (VITAMIN C) 1,000 mg tablet Take 1,000 mg by mouth once daily. Takes during winter - Magnesium Oxide 420 mg tab Take 1 tablet by mouth once daily. Takes during the winter - mecobalamin, vitamin B12, 5,000 mcg chew Take 1 tablet by mouth once daily. Takes during the winter - albuterol sulfate (PROAIR RESPICLICK) 90 mcg/actuation aepb Inhale 2 Puffs as instructed every 4 hours as needed. - multivit-min/FA/lycopen /lutein (CENTRUM SILVER MEN ORAL) Take by mouth once daily. - MYRBETRIQ 50 mg Tb24 Take 50 mg by mouth once daily. 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] 09/28/2009 Paraneoplastic Syndrome [R69] 11/15/2009 Lung mass [R91.8] 12/28/2009 Partial epilepsy with impairment of consciousne*12/29/2009 Partial epilepsy with impairment of consciousne*09/09/2012 Action tremor [G25.2] 10/22/2014 RAIZA (obstructive sleep apnea) AHI 28.3 [G47.33]03/31/2015 Pain in left hip [M25.552] 05/15/2017 Avascular necrosis of bone of hip, left (HCC) [*05/21/2017 OA (osteoarthritis) of hip [M16.9] 06/21/2017 S/P hip replacement, left [Z96.642] 07/05/2017 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] 10/03/2018 Recurrent major depression in partial remission*05/13/2020 Encounter Status:Closed by FADY ESPINOZA on 03/03/24 [facility] CNOVon 09-25-2023 CNOV Office Visit (NE50MN ) TERELL BELTRAN ([id number]) 1950 M Date Time Provider Department 09/25/23 2:40 PM WILLIAMS SEXTON NE50MN During your visit today, we recorded the following information about you: Pulse Respiration Blood pressure Weight 76/minute 18/minute 155/75 87.1 kg Height 1.651 m Williams Sexton MD 09/25/2023 4:43 PM Signed [facility] FOLLOW UP EVALUATION: Patient Name: Terell Beltran : 1950 Date: September 25, 2023 CHIEF COMPLAINT: Limbic encephalitis related epilepsy HISTORY OF PRESENT ILLNESS: Terell Beltran is a 73 year old male with a 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 He was being tested for possible DBS therapy for his left sided tremor (but the evaluation appears to be on hold). He continues without any seizures since our last visit. He denies any side effects on the medication. He has not had any seizures since our last visit. He has continued to have some tremor related dysfunction that has progressed some (He is still able to feed himself and walk with no falls, but cannot walk on uneven surfaces). . He has also some worsening memory problems. Interval History: Seizure medication: LCM 100mg BID LTG 200mg BID TPM 100mg daily Side effects: sleeps a lot Seizures: There have been no seizures. His last seizure was >10 years ago. Other health: He continues to take Prednisone 2.5 mg PO Qdaily and Celexa 20mg QAM for depression. His mood has been good on Celexa. He had been taking aspirin daily, but stopped 1 year ago. No new medications, other than an temporary antibiotic last month for a cold (seen in urgent care). Component Latest Ref Rng AND Units 03/29/2017 03/19/2018 Lacosamide 2.2 - 19.8 ug/mL 4.7 6.0 Desmethyllacosamide <2.6 ug/mL 0.8 0.8 Lamotrigine 1 - 13 ug/mL 4.5 5.3 Topiramate 5.0 - 20.0 ug/mL 7.3 8.4 KAREN 02/16/2022: He has not had any seizures since our last visit. He denies any side effects on the medication. His tremors are slowly getting worse (He can feed himself, but has trouble with small foods like pees). He has not fallen but has come close several times. He had an ambulatory EEG done in February 2016 that was normal. Last autoimmune panel was negative 01/2016. He had left hip surgery on June 21, 2017. Patient reports no left him pain anymore. Tremor (Lt hand>Rt hand) is worse since the last visit. Continues to follow Dr. Galloway who recommends brain stimulation however patient is still not interested. Continues to have BONE when he is tired. If he uses CPAP, no headaches. is concerned about intermediate use of Prednisone for his bone health. Wants to know if it should be continued. Continues to take Celexa for depression. Otherwise he is stable overall. CURRENT AEDs: TPM 100 QAM LCM 100 BID LTG 200 BID CURRENT SEIZURE DESCRIPTION AND FREQUENCY: Seizure Type A: Autonomic Seizure vs Paroxysmal Events. He will feel light headed, then have tremors in both arms. He will have a far away look and a grimace on his face like he is going to cry. He may not respond appropriately and he may say I am okay during his events. He appears confused after the event is over. He is currently not having any episodes. PREVIOUS EVALUATIONS: EEG ([facility], 03/18/09 - 03/22/09): Interictal: None Ictal: Clinical seizure: Autonomic Seizure (28 recorded; 3-21P, 23-32P) EEG seizure: Regional, vertex Clinical seizure: Autonomic Aura (2 recorded; 1A, 2A) EEG seizure: No EEG change Clinical seizure: Paroxysmal Event (2 recorded; 5E, 22E) EEG seizure: No EEG change EEG: ([facility],02/11/09): Normal (Awake, Drowsy, Anterior temporal electrodes) 1 EEG: No EEG Change Seizure: Paroxysmal Event This EEG is within normal limits. The patient had one typical event (reporting he had an event, with observed twitching in lower lip) lasting less than 30 seconds, with no definite EEG correlate. No epileptiform abnormalities were recorded. Ambulatory EEG (03/20/16) Classification Normal (Awake, Sleep, 10-20 Scalp Electrodes) Impression This 23 hours 40 minutes ambulatory EEG is normal. Epileptiform activity and seizure patterns were not seen. The patient did not have any documented events during this period Video EEG :([facility], 02/12/09): Normal (Awake, Sleep) 1 EEG: No EEG Change Seizure: Paroxysmal Event This multi-hour EEG done from 8:14AM on 02/11/09 to 6:23AM on 02/12/09 is within normal limits. Multiple self-reported spells were captured with no apparent EEG change. No epileptiform activity or EEg seizures were seen during this study. Video EEG :([facility], 02/13/09): Normal (Awake, Sleep) This EEG is within normal limits. No epileptiform discharges or electrographic seizures were noted. MR (more content not included)... Normal [facility] Nasopharyngeal Cultureon NAC Serratia liquefacien s group Amount Growth Very Rare Serratia liquefaciens group: REACTION ceFAZolin Islt PROMISE Cefepime Islt PROMISE <=0.12 S cefTRIAXone Islt PROMISE <=0.25 S Ciprofloxacin Islt PROMISE <=0.25 S Ertapenem Islt PROMISE <=0.12 S Gentamicin Islt PROMISE <=1 S Imipenem Islt PROMISE 0.5 S levoFLOXacin Islt PROMISE <=0.12 S Pip+Tazo Islt PROMISE <=4 S Tobramycin Islt PROMISE <=1 S TMP SMX Islt PROMISE <=20 S Normal [facility] Comment on above: Performed By: #### M 100.2500, M100.1999 #### [facility] [address] [place], [place], [address] Gram Stainon 07-23-2021 GS Positive Normal [facility] Comment on above: Performed By: #### M 100.2500, M100.1999 #### [facility] [address] [place], [place], [address] PSA,Total - Annual Screenon 12-27-2020 PSA,TOT SCREEN 0.80 ng/mL Normal 0.00-4.00 [facility] Comment on above: Result Comment: This test was performed using the TPSA assay method for the Gyros chemistry system. Values obtained with different assay methods cannot be used interchangably. When changing PSA assays in the course of monitoring a patient, additional sequential testing should be carried out to confirm baseline values. Performed By: #### L 501.9910 #### [facility] [address] [place], [place], [address] CNCNPATEDon 06-08-2017 CNCNPATED Education (ME4S) TERELL BELTRAN ( ) 1950 MDate Time Provider Department06/08/17 LIZA TEJADA (RAMU) [id number] for Visit: Pre-Op Teaching [134] Cmt: Total Joint ClassProgress Notes:RAMU Valero 06/08/2017 8:41 AM SignedTOTAL JOINT COMPLETE CARE PROGRAMORTHOPAEDIC TOTAL JOINT CLASSService Date: 06/08/2017Service Time: 8:41 Alexis Beltran is scheduled for hip replacement on 06/21/17. He did attend thepre-op joint replacement class.Issues Reviewed: belowEducation Topic/Teaching Points:Day of surgery arrival instructions (including phone number to call for arrivaltime)Pre-op skin wipesHospital course: -TCI area, operating room, recovery room -Anesthesia: Spinal vs general -Pain control: Nerve block, epidural, oral medications, AND IV medications -DVT prophylaxisASA, Lovenox, CoumadinPost-op dressingsShowering instructionsAquacell dressing to be removed 7 days post opIncision care: [place] vs dissolvable sutures with glueSigns AND symptoms of infectionSigns AND symptoms of DVTHome physical therapyHome pain medications: Refill protocol and side effectsPain management: Ice, elevation of extremity and pain medsCare ManagementDischarge planDiscuss with family/friends about assistance after discharge from the hospitalSNF (Intermediate Facility)Rehab nurse will contact prior to admission to discuss post-op needs and hometherapy vs SNFCase medical affairs manager/social worker health services in hospital final arrangements for dischargePhysical and occupational therapy while in the hospitalGetting your home readyWhat to bring to the hospitalPreparing yourself for surgery: Dentist, stop smokingDietExercises: Circulation exercisesAdaptive equipmentHip and knee precautionsSIGNATURE: RAMU Valero PATIENT NAME: Terell GanATE: June 08, 2017 MRN: TIME: 8:41 AM PAGER/CONTACT #: [phone] During your visit today, we recorded the following information about you:Allergies As of Date: 06/08/2017 Noted Allergy ReactionDUST 09/21/2005MOLD 09/21/2005 5 - IntolerancePRIMIDONE 06/14/2015 16 - UnknownTREES 09/21/2005 5 - IntoleranceDate Reviewed: 06/07/2017Reviewed by: Marixa (Rn) ROBERT Hyde - Fully AssessedPrescriptions as of 06/08/2017 Sig: DEMARCO (ZINGIBER OFFICINALIS)* Take 1 capsule by mouth once * CURCUMIN MISC Take 2 tablets by mouth once * MYRBETRIQ 50 MG TABLET,EXTEND* Take 50 mg by mouth once katharina* LACOSAMIDE 100 MG TABLET Take 1 tablet by mouth twice * PREDNISONE 5 MG TABLET Take 1 tablet by mouth once d* CITALOPRAM 20 MG TABLET Take 1 tablet by mouth once d* LAMOTRIGINE 200 MG TABLET Take 1 tablet by mouth twice * TOPIRAMATE 100 MG TABLET Take 1 tablet by mouth twice * CPAP Set to fixed pressure CPAP 11* OXYBUTYNIN CHLORIDE ER 10 MG * Take 1 tablet by mouth once d* [id number] UTEIN * Take 1 tablet by mouth once d* * ASPIRIN 81 MG CHEWABLE TABLET Take 1 tablet by mouth once d* Status:Closed by LIZA TEJADA on 06/08/17 [facility] PROGRESSon 06-08-2017 PROGRESS HNO ID: [id number]: Liza (Ramu) FarihasenService: (none)Author Type: Patient Service AssociateType: Progress NotesFiled: 06/08/2017 8:41 AMNote Text:TOTAL JOINT COMPLETE CARE PROGRAMORTHOPAEDIC TOTAL JOINT CLASSService Date: 06/08/2017Service Time: 8:41 Alexis Beltran is scheduled for hip replacement on 06/21/17. He did attendthe pre-op joint replacement class.Issues Reviewed: belowEducation Topic/Teaching Points:Day of surgery arrival instructions (including phone number to call forarrival time)Pre-op skin wipesHospital course: -TCI area, operating room, recovery room -Anesthesia: Spinal vs general -Pain control: Nerve block, epidural, oral medications, AND IVmedications -DVT prophylaxisASA, Lovenox, CoumadinPost-op dressingsShowering instructionsAquacell dressing to be removed 7 days post opIncision care: [place] vs dissolvable sutures with glueSigns AND symptoms of infectionSigns AND symptoms of DVTHome physical therapyHome pain medications: Refill protocol and side effectsPain management: Ice, elevation of extremity and pain medsCare ManagementDischarge planDiscuss with family/friends about assistance [facility])Rehab nurse will contact prior to admission to discuss post-op needs andhome therapy vs SNFCase medical affairs manager/social worker health services in hospital final arrangements for dischargePhysical and occupational therapy while in the hospitalGetting your home readyWhat to bring to the hospitalPreparing yourself for surgery: Dentist, stop smokingDietExercises: Circulation exercisesAdaptive equipmentHip and knee precautionsSIGNATURE: RAMU Valero PATIENT NAME: Terell GanATE: June 08, 2017 MRN: TIME: 8:41 AM PAGER/CONTACT #: [phone] [facility] Office Visiton 10-18-2016 Documentation of current medications (procedure) Done Invalid Interpretation Code [facility] Work Phone: Tobacco use CP Never smoker Invalid Interpretation Code [facility] Work Phone: Vital Signs Date Time Vital Sign Value Performing Clinician Facility 08-07-2024 08:31-0400 Body mass index (BMI) [Ratio] 31.18 kg/m2 Josef Bhatt TYPESETTER PERFORATOR OPERATOR.PARTITION ASSEMBLER Work Phone: [facility] 08-07-2024 08:31-0400 Body temperature 98.71 [degF] Josef Bhatt TYPESETTER PERFORATOR OPERATOR.PARTITION ASSEMBLER Work Phone: [facility] 08-07-2024 08:31-0400 Body weight 85 kg Josef Bhatt TYPESETTER PERFORATOR OPERATOR.PARTITION ASSEMBLER Work Phone: [facility] 08-07-2024 08:31-0400 Diastolic blood pressure 84 mm[Hg] Josef Bhatt TYPESETTER PERFORATOR OPERATOR.PARTITION ASSEMBLER Work Phone: [facility] 08-07-2024 08:31-0400 Heart rate 65 /min Josef Bhatt TYPESETTER PERFORATOR OPERATOR.PARTITION ASSEMBLER Work Phone: [facility] 08-07-2024 08:31-0400 Respiratory rate 22 /min Josef Bhatt TYPESETTER PERFORATOR OPERATOR.PARTITION ASSEMBLER Work Phone: [facility] 08-07-2024 08:31-0400 SaO2% (BldA) [Mass fraction] 98 % Josef Bhatt TYPESETTER PERFORATOR OPERATOR.PARTITION ASSEMBLER Work Phone: [facility] 08-07-2024 08:31-0400 Systolic blood pressure 170 mm[Hg] Josef Bhatt TYPESETTER PERFORATOR OPERATOR.PARTITION ASSEMBLER Work Phone: [facility] 04-16-2024 11:26-0500 Body mass index (BMI) [Ratio] 31.66 kg/m2 Keon Jean MD Work Phone: [facility] 04-16-2024 11:26-0500 Body temperature 98.01 [degF] Keon Jean MD Work Phone: [facility] 04-16-2024 11:26-0500 Body weight 86.3 kg Keon Jean MD Work Phone: [facility] 04-16-2024 11:26-0500 Diastolic blood pressure 88 mm[Hg] Keon Jean MD Work Phone: [facility] 04-16-2024 11:26-0500 Heart rate 64 /min Keon Jean MD Work Phone: [facility] 04-16-2024 11:26-0500 Respiratory rate 16 /min Keon Jean MD Work Phone: [facility] 04-16-2024 11:26-0500 SaO2% (BldA) [Mass fraction] 96 % Keon Jean MD Work Phone: [facility] 04-16-2024 11:26-0500 Systolic blood pressure 162 mm[Hg] Keon Jean MD Work Phone: [facility] 04-01-2024 14:38-0500 Body height 165.1 cm Williams Sexton MD Work Phone: [facility] 04-01-2024 14:38-0500 Body mass index (BMI) [Ratio] 31.62 kg/m2 Williams Sexton MD Work Phone: [facility] 04-01-2024 14:38-0500 Body weight 86.18 kg Williams Sexton MD Work Phone: [facility] 04-01-2024 14:38-0500 Diastolic blood pressure 83 mm[Hg] Williams Sexton MD Work Phone: [facility] 04-01-2024 14:38-0500 Heart rate 66 /min Williams Sexton MD Work Phone: [facility] 04-01-2024 14:38-0500 Respiratory rate 16 /min Williams Sexton MD Work Phone: [facility] 04-01-2024 14:38-0500 SaO2% (BldA) [Mass fraction] 98 % Williams Sexton MD Work Phone: [facility] 04-01-2024 14:38-0500 Systolic blood pressure 166 mm[Hg] Williams Sexton MD Work Phone: [facility] 09-25-2023 14:52-0400 Body height 165.1 cm Williams Sexton MD Work Phone: [facility] 09-25-2023 14:52-0400 Body mass index (BMI) [Ratio] 31.95 kg/m2 Williams Sexton MD Work Phone: [facility] 09-25-2023 14:52-0400 Body weight 87.09 kg Williams Sexton MD Work Phone: [facility] 09-25-2023 14:52-0400 Diastolic blood pressure 75 mm[Hg] Williams Sexton MD Work Phone: [facility] 09-25-2023 14:52-0400 Heart rate 76 /min Williams Sexton MD Work Phone: [facility] 09-25-2023 14:52-0400 Respiratory rate 18 /min Williams Sexton MD Work Phone: [facility] 09-25-2023 14:52-0400 SaO2% (BldA) [Mass fraction] 100 % Williams Sexton MD Work Phone: [facility] 09-25-2023 14:52-0400 Systolic blood pressure 155 mm[Hg] Williams Sexton MD Work Phone: [facility] 07-13-2023 10:25-0400 Body mass index (BMI) [Ratio] 32.38 kg/m2 Analy Brown APRN.CNP Work Phone: [facility] 07-13-2023 10:25-0400 Body weight 88.27 kg Analy Stephanie TYPESETTER PERFORATOR OPERATOR.PARTITION ASSEMBLER Work Phone: [facility] 07-13-2023 10:25-0400 Diastolic blood pressure 87 mm[Hg] Analy Stephanie TYPESETTER PERFORATOR OPERATOR.PARTITION ASSEMBLER Work Phone: [facility] 07-13-2023 10:25-0400 Heart rate 54 /min Analy Stephanie TYPESETTER PERFORATOR OPERATOR.PARTITION ASSEMBLER Work Phone: [facility] 07-13-2023 10:25-0400 Respiratory rate 18 /min Analy Stephanie TYPESETTER PERFORATOR OPERATOR.PARTITION ASSEMBLER Work Phone: [facility] 07-13-2023 10:25-0400 SaO2% (BldA) [Mass fraction] 100 % Analy Stephanie TYPESETTER PERFORATOR OPERATOR.PARTITION ASSEMBLER Work Phone: [facility] 07-13-2023 10:25-0400 Systolic blood pressure 185 mm[Hg] Analy Stephanie TYPESETTER PERFORATOR OPERATOR.PARTITION ASSEMBLER Work Phone: [facility] 03-22-2023 13:19-0500 Body height 165.1 cm Williams Sexton MD Work Phone: [facility] 03-22-2023 13:19-0500 Body weight 87.54 kg Williams Sexton MD Work Phone: [facility] 03-22-2023 13:19-0500 Diastolic blood pressure 72 mm[Hg] Williams Sexton MD Work Phone: [facility] 03-22-2023 13:19-0500 Heart rate 89 /min Williams Sexton MD Work Phone: [facility] 03-22-2023 13:19-0500 Respiratory rate 18 /min Williams Sexton MD Work Phone: [facility] 03-22-2023 13:19-0500 SaO2% (BldA) [Mass fraction] 98 % Williams Sexton MD Work Phone: [facility] 03-22-2023 13:19-0500 Systolic blood pressure 153 mm[Hg] Williams Sexton MD Work Phone: [facility] 05-30-2022 13:51-0400 Body height 165.1 cm Glory Kirk TYPESETTER PERFORATOR OPERATOR.PARTITION ASSEMBLER Work Phone: [facility] 05-30-2022 13:51-0400 Body weight 95.25 kg Glory Sahulin TYPESETTER PERFORATOR OPERATOR.PARTITION ASSEMBLER Work Phone: [facility] 05-30-2022 13:51-0400 Diastolic blood pressure 75 mm[Hg] Glory Kirk TYPESETTER PERFORATOR OPERATOR.PARTITION ASSEMBLER Work Phone: [facility] 05-30-2022 13:51-0400 Heart rate 61 /min Glory Kirk TYPESETTER PERFORATOR OPERATOR.PARTITION ASSEMBLER Work Phone: [facility] 05-30-2022 13:51-0400 SaO2% (BldA) [Mass fraction] 96 % Glory Kirk TYPESETTER PERFORATOR OPERATOR.PARTITION ASSEMBLER Work Phone: [facility] 05-30-2022 13:51-0400 Systolic blood pressure 168 mm[Hg] Glory Kirk TYPESETTER PERFORATOR OPERATOR.PARTITION ASSEMBLER Work Phone: [facility] 07-14-2021 16:27-0400 Body temperature 98.8 [degF] Jessica Praisler-Wood TYPESETTER PERFORATOR OPERATOR.PARTITION ASSEMBLER Work Phone: [facility] 07-14-2021 16:27-0400 Body weight 88.36 kg Jessica Praisler-Wood TYPESETTER PERFORATOR OPERATOR.PARTITION ASSEMBLER Work Phone: [facility] 07-14-2021 16:27-0400 Diastolic blood pressure 90 mm[Hg] Jessica Praisler-Wood TYPESETTER PERFORATOR OPERATOR.PARTITION ASSEMBLER Work Phone: [facility] 07-14-2021 16:27-0400 Heart rate 66 /min Jessica Praisler-Wood TYPESETTER PERFORATOR OPERATOR.PARTITION ASSEMBLER Work Phone: [facility] 07-14-2021 16:27-0400 Respiratory rate 21 /min Jessica Praisler-Wood TYPESETTER PERFORATOR OPERATOR.PARTITION ASSEMBLER Work Phone: [facility] 07-14-2021 16:27-0400 SaO2% (BldA) [Mass fraction] 97 % Jessica Vergara APRN.PARTITION ASSEMBLER Work Phone: [facility] 07-14-2021 16:27-0400 Systolic blood pressure 170 mm[Hg] Jessica Vergara APRN.PARTITION ASSEMBLER Work Phone: [facility] 10-18-2016 13:24-0400 BMI (Body Mass Index) 33.61 kg/m2 [facility] Work Phone: 10-18-2016 13:24-0400 Height 165.1 cm [facility] Work Phone: 10-18-2016 13:24-0400 Weight 91.63 kg [facility] Work Phone: Encounters Encounter Date Encounter Type Care Provider Facility Start: 10-23-2024 End: 10-23-2024 Refill Hannah Almendarez APRN.PARTITION ASSEMBLER Work Phone: Neurology Comment on above: Refill Request Start: 08-07-2024 End: 08-07-2024 Subsequent hospital visit by physician Xr [facility] Josephine Work Phone: Radiology Comment on above: Acute cough [R05.1] Start: 08-07-2024 End: 08-07-2024 Office outpatient visit 25 minutes Josef Bhatt APRN.PARTITION ASSEMBLER Work Phone: [facility] Comment on above: Acute cough (Primary Dx); Wheezing; Sinobronchitis Start: 08-07-2024 End: 08-07-2024 ambulatory JOSEF BHATT Facility:[place] Start: 04-16-2024 End: 04-16-2024 ambulatory Facility:[place] Start: 04-16-2024 End: 04-16-2024 Office outpatient visit 15 minutes Keon Jean MD Work Phone: [facility] Comment on above: Influenza-like illne ss (Primary Dx) Start: 04-02-2024 End: 04-02-2024 Refill Williams Sexton MD Work Phone: Neurology Comment on above: Refill Request Start: 04-01-2024 End: 04-01-2024 ambulatory WILLIAMS SEXTON Facility:[place] Start: 04-01-2024 End: 04-01-2024 Patient encounter procedure Williams Sexton MD Work Phone: Neurology Comment on above: 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); Recurrent major depression in partial remission (HCC) Start: 07-25-2023 ambulatory [facility] [place] [facility] Start: 07-25-2023 Patient encounter procedure Alpa Vallejo MA [facility] [place] Comment on above: Population Health Na vigation Outreach (ACO No PCP) Start: 07-13-2023 End: 07-13-2023 Patient encounter procedure Analy Brown APRN.PARTITION ASSEMBLER Work Phone: Neurology Comment on above: RAIZA on CPAP (Primary Dx) Start: 07-06-2023 Telephone encounter Analyeros dorantes TYPESETTER PERFORATOR OPERATOR.PARTITION ASSEMBLER Work Phone: Neurology Comment on above: PAP Therapy Follow U p (06/06/23 - 07/05/23 ) Start: 06-01-2023 Telephone encounter Glory Streeter APRN.PARTITION ASSEMBLER Work Phone: Neurology Comment on above: Orders (Faxed office note dated 03/12/2023 to [facility] attention Patrizia at [phone]./) Start: 05-28-2023 ambulatory Jessica Lawrence [facility] [place] Comment on above: Population Health Na vigation Outreach (ACO NO PCP) Start: 04-16-2023 Telephone encounter Glory Streeter APRN.PARTITION ASSEMBLER Work Phone: Neurology Comment on above: Orders Start: 03-22-2023 End: 03-22-2023 Patient encounter procedure Williams Sexton MD Work Phone: Neurology Comment on above: 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); Recurrent major depression in partial remission (HCC) Start: 02-02-2023 Telephone encounter Williams wooten MD Work Phone: Neurology Comment on above: Medication Problem ( Needs early fill of Vimpat d/t vacation) Start: 09-27-2022 Telephone encounter Glory Streeter APRN.PARTITION ASSEMBLER Work Phone: Neurology Comment on above: Patient Update (Comp liance report ) Start: 08-31-2022 Telephone encounter Glory Streeter APRN.PARTITION ASSEMBLER Work Phone: Neurology Comment on above: Orders Start: 07-07-2022 ambulatory Smiley Grove [facility] [place] Comment on above: Population Health Na vigation Outreach (ACO No PCP List) Start: 07-04-2022 ambulatory Glory ordonez APRN.PARTITION ASSEMBLER Work Phone: Neurology Comment on above: Reschedule/Cancellat ion Glory Kirk Start: 07-04-2022 E-mail encounter fro m caregiver Glory Reagan DICKENS.PARTITION ASSEMBLER Work Phone: [facility] Start: 06-26-2022 Telephone encounter Glory Streeter APRN.PARTITION ASSEMBLER Work Phone: Neurology Comment on above: Orders Start: 06-08-2022 [facility] Work Phone: Neurology Start: 05-31-2022 Telephone encounter Glory Streeter APRN.PARTITION ASSEMBLER Work Phone: Neurology Comment on above: Patient Update (BP) Start: 05-30-2022 End: 05-30-2022 Patient encounter procedure Gloryankush Kirk APRN.PARTITION ASSEMBLER Work Phone: Neurology Comment on above: RAIZA (obstructive sle ep apnea) (Primary Dx); Hypertension, unspecified type Start: 03-14-2022 Refill Williams Sexton MD Work Phone: Neurology Comment on above: Refill Request Start: 02-16-2022 End: 02-21-2022 Patient encounter procedure Williams Sexton MD Work Phone: Neurology Comment on above: 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); Recurrent major depression in partial remission (HCC); Action tremor Start: 02-13-2022 Refill Williams Sexton MD Work Phone: Neurology Comment on above: Refill Request Start: 09-05-2021 Refill Williams Sexton MD Work Phone: Neurology Comment on above: Refill Request Start: 07-14-2021 End: 07-14-2021 Patient encounter procedure Jessica Vergara APRN.PARTITION ASSEMBLER Work Phone: [facility] Comment on above: Acute sinusitis, rec urrence not specified, unspecified location (Primary Dx) Start: 06-09-2021 ambulatory Lyric L [facility] Comment on above: Population Health Na vigation Outreach (Offboarding) Start: 08-02-2017 End: 09-04-2017 Ambulatory RAJIV Renner [facility] Procedures Date Procedure Procedure Detail Performing Clinician Start: 08-07-2024 Radiologic exam ches t 2 views Josef Gamaradha TYPESETTER PERFORATOR OPERATOR.PARTITION ASSEMBLER Work Phone: Start: 02-25-2009 Lipid 1996 panel - S jason or Plasma Williams Sexton MD Work Phone: Start: 11-08-2000 Colonoscopy Lyric fisher Plan of Treatment Date Care Activity Detail Author Start: 04-01-2027 Diabetes Screening Diabetes Screenin g [facility] Start: 2025 RSV Vaccine (1 - 1-d ose 75+ series) RSV Vaccine (1 - 1-dose 75+ series) [facility] Start: 10-27-2024 Influenza vaccination [facility] Start: 04-01-2024 End: 04-01-2024 Patient encounter procedure 04/01/2024 2:40 PM EST Office Visit Neurology [address] [place] [address] Williams Sexton MD [address] [place] [address] 6 month follow Neurology Comment on above: 6 month follow Start: 04-01-2024 End: 07-01-2024 LACOSAMIDE [facility] Work Phone: Comment on above: Expected: 04/01/2024 , Expires: 07/01/2024 Start: 04-01-2024 End: 07-01-2024 lamoTRIgine [Mass/volume] in Serum or Plasma [facility] Comment on above: Expected: 04/01/2024 , Expires: 07/01/2024 Start: 02-27-2024 Advance Directive Discussion Advance Directive Discussion [facility] Start: 10-28-2023 Covid-19 Vaccine () Covid-19 Vaccine () [facility] Start: 10-28-2023 Influenza vaccination [facility] Start: 09-25-2023 End: 09-25-2023 Patient encounter procedure 09/25/2023 2:40 PM EDT Office Visit Neurology [address] [place] [address] Williams Sexton MD [address] [place] [address] f/u Neurology Comment on above: f/u Start: 07-13-2023 End: 07-13-2023 Patient encounter procedure 07/13/2023 10:30 AM EDT Office Visit Neurology [address] [place] [address] Analy Brown APRN.PARTITION ASSEMBLER [address] [place] [address] 4 month follow up Neurology Comment on above: 4 month follow up Start: 02-26-2023 Advance Directive Discussion Advance Directive Discussion [facility] Start: 10-27-2022 Covid-19 Vaccine ( season) Covid-19 Vaccine ( season) [facility] Start: 10-27-2022 Influenza vaccination [facility] Start: 02-26-2022 ADVANCE DIRECTIVE DISCUSSION ADVANCE DIRECTIVE DISCUSSION [facility] Start: 10-27-2021 Influenza vaccination [facility] Start: 02-26-2021 ADVANCE DIRECTIVE DISCUSSION ADVANCE DIRECTIVE DISCUSSION [facility] Start: 06-22-2020 DIABETES SCREEN DIABETES SCREEN [facility] Start: 06-22-2020 Diabetes Screening Diabetes Screenin g [facility] Start: 10-18-2016 End: 10-18-[address] [facility] Work Phone: Start: 10-18-2016 End: 10-18-2016 X-Ray, Hip, unilateral, with pelvis; 2-3 views X-Ray, Hip, unilateral, with pelvis; 2-[address] [facility] Work Phone: Start: 2015 Pneumococcal Vaccine : 65+ (1 - PCV) Pneumococcal Vaccine: 65+ (1 - PCV) [facility] Start: 2015 Pneumococcal Vaccine : 65+ (1 of 1 - PCV) Pneumococcal Vaccine: 65+ (1 of 1 - PCV) [facility] Start: 2015 PNEUMOCOCCAL: 65+ (1 - PCV) PNEUMOCOCCAL: 65+ (1 - PCV) [facility] Start: 2015 PNEUMOVAX AGE 65 AND OVER WITH 5YR LOOKBACK (#1) PNEUMOVAX AGE 65 AND OVER WITH 5YR LOOKBACK (#1) [facility] Start: 02-25-2014 Lipid 1996 panel - Serum or Plasma Lipid Screening [facility] Start: 02-25-2014 Lipid panel Lipid Screening [facility] Start: 02-25-2014 LIPID SCREEN LIPID SCREEN [facility] Start: 07-28-2011 Medicare Annual Wellness Visit Medicare Annual Wellness Visit [facility] Start: 11-08-2010 Colonoscopy COLONOSCOPY [facility] Start: 11-08-2010 COLORECTAL CANCER SCREENING COLORECTAL CANCER SCREENING [facility] Start: 11-08-2010 Screening for malign ant neoplasm of colon [facility] Start: 2010 RSV Vaccine (1 - 1-d ose 60+ series) RSV Vaccine (1 - 1-dose 60+ series) [facility] Start: 08-26-2006 Urine microalbumin profile [facility] Start: 02-01-2000 Pneumococcal Vaccine : 50+ (1 of 1 - PCV) Pneumococcal Vaccine: 50+ (1 of 1 - PCV) [facility] Start: 02-01-2000 SHINGRIX VACCINE (1 of 2) SHINGRIX VACCINE (1 of 2) [facility] Start: 1995 COLOGUARD (FIT-DNA) COLOGUARD (FIT-D NA) [facility] Start: [address] COLONOGRAPHY [facility] Start: 1995 FECAL OCCULT BLOOD FECAL OCCULT BLOO D [facility] Start: 1995 Screening for malign ant neoplasm of colon [facility] Start: 1995 SIGMOIDOSCOPY SIGMOIDOSCOPY [facility] Start: 02-01-1968 ANNUAL PCP TEAM COMPUTER SYSTEMS SOFTWARE ARCHITECT IZA DISEASE VISIT ANNUAL PCP TEAM CHRONIC DISEASE VISIT [facility] Start: 02-01-1968 Anxiety Screening Anxiety Screening [facility] Start: 02-01-1968 BP CONTROLLED (<130/80) BP CONTROLLE D (<130/80) [facility] Start: 02-01-1968 HEPATITIS C SCREENING HEPATITIS C [facility] Start: 02-01-1968 Hepatitis C screening Hepatitis C [facility] Start: 1955 COVID-19 VACCINE (#1) COVID-19 VACCI NE (#1) [facility] Start: 1955 COVID-19 VACCINE (1) COVID-19 VACCIN E (1) [facility] Start: 1950 COVID-19 VACCINE (#1) COVID-19 VACCI NE (#1) [facility] End: 05-30-2023 HOME SLEEP APNEA TEST (HSAT) HOME SLEEP APNEA TEST (HSAT) Procedures Routine RAIZA (obstructive sleep apnea) 1 Occurrences starting 05/30/2022 until 05/30/2023 [facility] Work Phone: Comment on above: 1 Occurrences starti ng 05/30/2022 until 05/30/2023 End: 05-15-2024 PAP TITRATION PSG (CPAP, BIPAP, ASV) PAP TITRATION PSG (CPAP, BIPAP, ASV) Procedures Routine RAIZA (obstructive sleep apnea) CSA (central sleep apnea) 1 Occurrences starting 04/16/2023 until 05/15/2024 [facility] Work Phone: Comment on above: 1 Occurrences starti ng 04/16/2023 until 05/15/2024 Patient Education HIP%20PAIN [facility] Work Phone: [facility] Immunizations Immunization Date Immunization Notes Care Provider Melinda lynn 08-25-2006 tetanus and diphther ia toxoids, adsorbed, preservative free, for adult use (2 Lf of tetanus toxoid and 2 Lf of diphtheria toxoid) Lyric Darden [facility] Payers Date Payer Category Payer Private Health Insurance [employer] SU[employer]LEMENT [id number] 2015-Present [phone] [address] [place] [address] Indemnity [id number] 2015 Private Health Insurance [id number] 2015 Unknown [id number] 2011 Medicare MEDICARE MEDICAR E A AND B [id number] 2011-Present [phone] [place] [address] Medicare [id number] 2011 Medicare [id number] 2011 Medicare [id number] Medicare [id number] Social History Date Type Detail Facility Start: 08-15-2010 Tobacco smoking stat [facility] Never smoked tobacco [facility] Work Phone: Start: 03-03-2021 End: 08-07-2024 Alcohol intake Current non-drinker of alcohol (finding) [facility] Start: 1950 Sex Assigned At Not on file [facility] Start: 07-04-2021 End: 07-14-2021 Exposure to SARS-CoV-2 (event) Not sure [facility] Start: 08-15-2010 Tobacco use and exposure Smokeless tobacco non-user [facility] Start: 08-17-2022 End: 03-28-2024 History of Social function [facility] Start: 08-17-2022 End: 03-28-2024 Tobacco use panel [facility] Start: 01-28-2012 National Score (1-100), lower number is lower risk 72 [facility] Medical Equipment Procedure Code Equipment Code Equipment Origin al Text Equipment Identifier Dates Shell G7 F Offse t Hemisphere [place] Acetabular 4 Hole Limit 54mm Hip - [id number] Start: 06-21-2017 Liner G7 36mm F Neutral Arcomxl Acetabular Hip - [id number] Start: 06-21-2017 Head 36mm -3mm Biolox Delta Femoral Modular Biomet Type I Taper Stem Hip - [id number] Start: 06-21-2017 Stem Taperloc 13 3d 11 Standard Offset Taper Pps 142mm Femoral Type 1 - [id number] Start: 06-21-2017 Screw G7 6.5mm D ome 20mm Acetabular Low Profile Hip - [id number] Start: 06-21-2017 Functional Status Date Assessment Result Facility 03-31-2014 Are you deaf, or do you have serious difficulty hearing No 03/31/2014 3:50 PM EST Sandrine Whitfield (Jihan) (Hist) No [facility] 03-31-2014 Are you blind, or do you have serious difficulty seeing, even when wearing glasses Yes 03/31/2014 3:50 PM EST Sandrine Whitfield (Jihan) (Hist) Yes [facility] 03-31-2014 Do you have serious difficulty walking or climbing stairs No 03/31/2014 3:50 PM EST Sandrine Whitfield (Jihan) (Hist) No [facility] 03-31-2014 Do you have difficul ty dressing or bathing No 03/31/2014 3:50 PM EST Sandrine Whitfield (Jihan) (Hist) No [facility] 03-31-2014 Because of a physica l, mental, or emotional condition, do you have difficulty doing errands alone such as visiting a physician's office or shopping No 03/31/2014 3:50 PM EST Sandrine Whitfield (Jihan) (Hist) No [facility] Mental Status Date Assessment Result Facility 03-31-2014 Because of a physica l, mental, or emotional condition, do you have serious difficulty concentrating, remembering, or making decisions Yes 03/31/2014 3:50 PM EST Sandrine Whitfield (Jihan) (Hist) Yes [facility] Clinical Notes 06-09-2021 to 10-23-2024 Telephone Encounter - Sayda Laird APRN.[facility] - 10/23/2024 10:37 AM EDTTelephone Encounter - Sayda Laird APRN.CNP - 10/23/2024 10:37 AM Karlee Dallas LPN - 08/07/2024 9:42 AM EDT Note Date & Type Note Facility 10-23-2024 Telephone encounter Note PDMP website checked and validated. All prescriptions have been APPROPRIATELY filled. No suspicious activity was identified. 10/23/2024 by Sayda Laird APRN.CNP The following approved medication requests have been transmitted electronically. Requested Prescriptions Signed Prescriptions Disp Refills lacosamide (VIMPAT) 100 mg tab 180 tablet 1 Sig: Take 1 tablet by mouth two times a day for 180 days. Authorizing Provider: SAYDA LAIRD APRN.CNP [facility] 10-23-2024 Miscellaneous Notes PDMP website checked and validated. All prescriptions have been APPROPRIATELY filled. No suspicious activity was identified. 10/23/2024 by Sayda Laird APRN.CNP The following approved medication requests have been transmitted electronically. Requested Prescriptions Signed Prescriptions Disp Refills lacosamide (VIMPAT) 100 mg tab 180 tablet 1 Sig: Take 1 tablet by mouth two times a day for 180 days. Authorizing Provider: SAYDA LAIRD APRN.CNP Prescription Refill: Patient is out of medication Requested by: pharmacy Please E-Scribe Caller Contact Number: electronic Pharmacy Name: [facility] Pharmacy Number: [phone] Generic/ brand: Generic 30 or 90 day supply requested: 30 Last appointment: 04/01/24 Next Appointment: none Patient of Dr. Darshan Beltran [id number] [address] [facility] [address] [place] [address] documented in this encounter [facility] 10-23-2024 Telephone encounter Note Prescription Refill: Patient is out of medication Requested by: pharmacy Please E-Scribe Caller Contact Number: electronic Pharmacy Name: [facility] Pharmacy Number: [phone] Generic/ brand: Generic 30 or 90 day supply requested: 30 Last appointment: 04/01/24 Next Appointment: none Patient of Dr. Darshan Beltran [id number] [address] [place] [address] [facility] 08-07-2024 Note HNO ID: [id number] Author: KARLEE BUNDY LPN Service: ? Author Type: LICENSED NURSE Type: Progress Notes Filed: 08/07/2024 09:45 Note Text: 2.5 solution aerosol treatment given per provider's orders. Prior to treatment O2 sat is 98. Treatment completed. O2 sat is 97. Tolerated well. Karlee Bundy LPN [facility] 08-07-2024 History of Presen t illness Narrative 2.5 solution aerosol treatment given per provider's orders. Prior to treatment O2 sat is 98. Treatment completed. O2 sat is 97. Tolerated well. Karlee Bundy LPN Subjective HPI 74-year-old male presents urgent care chief complaint cough wheezing headache sore throat. Duration of symptoms 10 days. Associated symptoms listed above. Has used Cat-D this has helped some. Denies any known sick contacts. No chest pain fevers hemoptysis pleuritic pain nausea vomiting or abdominal pain. Does have some shortness of breath and wheezing when coughing fits. Has used albuterol in the past this has been helpful however he is currently out. Past medical history prescription medications allergies reviewed .Patient presents with: Cough: Chest congestion, SOB, wheeze, moist cough, headache, chest tightness x 10 days + PAST MEDICAL HISTORY Diagnosis Date Atypical nevi Essential hypertension, benign Limbic system epilepsy (HCC) Malignant melanoma (HCC) Obstructive sleep apnea Paraneoplastic syndrome Recurrent major depression in partial remission 05/13/2020 PAST SURGICAL HISTORY Procedure Laterality Date CHOLECYSTECTOMY Cholecystectomy COLONOSCOPY FLX DX W/COLLJ SPEC WHEN PFRMD 2000 Colonoscopy PAST SURGICAL HISTORY OF nasal polyp surg x 9 PAST SURGICAL HISTORY OF lump on face benign PAST SURGICAL HISTORY OF 2004 removed - mal leslye ALLERGIES Dust, Mold, Primidone, and Trees MEDICATIONS lacosamide (VIMPAT) 100 mg tab Take 1 tablet by mouth two times a day for 180 days. lamoTRIgine (LAMICTAL) 200 mg tablet Take 1 tablet by mouth two times a day. topiramate (TOPAMAX) 100 mg tablet Take 1 tablet by mouth once daily. predniSONE (DELTASONE) 2.5 mg tablet Take 1 tablet by mouth once daily. citalopram (CELEXA) 20 mg tablet Take 1 tablet by mouth once daily. oxybutynin ER (DITROPAN XL) 10 mg 24 hr tablet Take 1 tablet by mouth every afternoon. CPAP/BIPAP/OTHER AutoCPAP 11-20 cmH2O DME [employer] Zinc Gluconate 50 mg tablet Take 50 mg by mouth once daily. During winter months Magnesium Oxide 420 mg tab Take 1 tablet by mouth once daily. Takes during the winter mecobalamin, vitamin B12, 5,000 mcg chew Take 1 tablet by mouth once daily. Takes during the winter months multivit-min/FA/lycopen/lutein (CENTRUM SILVER MEN ORAL) Take by mouth once daily. Ascorbic Acid (VITAMIN C) 1,000 mg tablet Take 1,000 mg by mouth once daily. Takes during winter (Patient not taking: Reported on 08/07/2024) albuterol sulfate (PROAIR RESPICLICK) 90 mcg/actuation aepb Inhale 2 Puffs as instructed every 4 hours as needed. (Patient not taking: Reported on 08/07/2024) MYRBETRIQ 50 mg Tb24 Take 50 mg by mouth once daily. (Patient not taking: Reported on 08/07/2024) FAMILY HISTORY Problem Relation Age of Onset Colon Cancer Father Cancer Father lung cancer Coronary Artery Disease Father [place] Coronary Artery Disease Paternal Grandmother Coronary Artery Disease Paternal Grandfather Alzheimer's Disease Mother dementia Social History Tobacco Use Smoking status: Never Smokeless tobacco: Never Substance Use Topics Alcohol use: No Drug use: No BP 170/84 Pulse 65 Temp 37.1 C (98.7 F) Resp 22 Wt 85 kg (187 lb 6.3 oz) SpO2 98% BMI 31.18 kg/m Review of Systems Constitutional: Negative for chills, fever and malaise/fatigue. HENT: Positive for congestion. Negative for ear discharge, ear pain, sinus pain and sore throat. Eyes: Negative for blurred vision, pain, discharge and redness. Respiratory: Positive for cough, shortness of breath and wheezing. Negative for hemoptysis, sputum production and stridor. Cardiovascular: Negative for chest pain. Gastrointestinal: Negative for abdominal pain, diarrhea, nausea and vomiting. Musculoskeletal: Negative for myalgias. Skin: Negative for itching and rash. Neurological: Negative for dizziness and headaches. Objective Physical Exam Constitutional: General: He is not in acute distress. Appearance: He is not diaphoretic. HENT: Head: Normocephalic. Jaw: No trismus, tenderness, swelling or pain on movement. Nose: Congestion present. Mouth/Throat: Mouth: Mucous membranes are moist. Pharynx: Oropharynx is clear. Uvula midline. No pharyngeal swelling, oropharyngeal exudate, posterior oropharyngeal erythema or uvula swelling. Eyes: Conjunctiva/sclera: Conjunctivae normal. Pupils: Pupils are equal, round, and reactive to light. Cardiovascular: Rate and Rhythm: Normal rate and regular rhythm. Heart sounds: Normal heart sounds. Pulmonary: Effort: Pulmonary effort is normal. No tachypnea, accessory muscle usage or respiratory distress. Breath sounds: No stridor. Wheezing present. No rhonchi or rales. Musculoskeletal: Cervical back: Normal range of motion and neck supple. No edema, erythema, rigidity or tenderness. No pain with movement. Normal range of motion. Lymphadenopathy: Cervical: No cervical adenopathy. Skin: General: Skin is warm and dry. Neurological: Mental Status: He is alert and oriented to person, place, and time. ASSESSMENT/PLAN: 1. Acute cough - ICD9: 786.2, ICD10: R05.1 (primary diagnosis) - XR CHEST 2V FRONTAL/LAT - IPRATROPIUM 0.5 MG-ALBUTEROL 3 MG (2.5 MG BASE)/3 ML NEBULIZATION SOLN 2. Wheezing - ICD9: 786.07, ICD10: R06.2 - ALBUTEROL SULFATE HFA 90 MCG/ACTUATION AEROSOL INHALER - INHALATIONAL SPACING DEVICE 3. Sinobronchitis - ICD9: 473.9, 490, ICD10: J32.9, J40 IMPRESSION: Prominent cardiac-pericardiac silhouette. No evidence of pneumonia Chest x-ray unremarkable. Breath sounds did improve with less wheezing post DuoNeb treatment. Treat as sinobronchitis. Cough suppressant to use at night. Doxycycline sent to pharmacy. Albuterol as needed. Patient was educated on supportive therapies. Patient will follow up with primary care provider 2 to 3 days symptoms do not improve. patient was instructed to immediately proceed to emergency room for any new, worsening, or symptoms lasting longer than anticipated. The patient's clinical presentation is otherwise unremarkable at this time. Based on exam and clinical finding, the patient is stable for discharge. Plan of care was discussed with patient. Patient verbalizes understanding and agrees to plan of care. This note was generated using [employer] software. It may contain errors in wording, punctuation, or spelling. Josef Bhatt APRN.DARSHAN documented in this encounter [facility] 08-07-2024 History of Presen t illness Narrative Radiology Service Progress Note PATIENT NAME: Terell Beltran DATE OF SERVICE: August 07, 2024 TIME: 8:42 AM PATIENT IDENTITY VERIFICATION COMPLETED USING TWO (2) IDENTIFIERS: Name and Date of confirmed by patient verbally. FALL SCREENING: Has the patient had 2 falls in the last year or 1 fall with injury or currently using an Ambulatory Assistive Device (Walker, Cane, Wheelchair, Crutches, etc.)? Yes, Patient High Risk for Falls What interventions were put in place to prevent falls during this visit? Offered Assistance with Transfers/Clothing and Instructed Patient to Remain Seated (Not on Exam Table) Until Exam PATIENT GENDER DATA: Assigned male at PATIENT RELEVANT IMPLANT DATA REVIEWED: Not Applicable PATIENT PRESENTS WITH AN IMPLANTABLE OR ATTACHED AUTO BENCH MECHANIC: No RADIOLOGY DEPARTMENT: General X-ray: Exam(s) Completed: Chest X-Ray PERIPHERAL IV DATA: Not applicable SIGNED BY: RT Rustam(Cash) August 07, 2024 8:42 AM documented in this encounter [facility] 08-07-2024 Note HNO ID: [id number] Author: MAYA, SILVANA, RT(R) Service: Radiology Author Type: Technologist Type: Progress Notes Filed: 08/07/2024 08:49 Note Text: Radiology Service Progress Note PATIENT NAME: Terell Beltran DATE OF SERVICE: August 07, 2024 TIME: 8:42 AM PATIENT IDENTITY VERIFICATION COMPLETED USING TWO (2) IDENTIFIERS: Name and Date of confirmed by patient verbally. FALL SCREENING: Has the patient had 2 falls in the last year or 1 fall with injury or currently using an Ambulatory Assistive Device (Walker, Cane, Wheelchair, Crutches, etc.)? Yes, Patient High Risk for Falls What interventions were put in place to prevent falls during this visit? Offered Assistance with Transfers/Clothing and Instructed Patient to Remain Seated (Not on Exam Table) Until Exam PATIENT GENDER DATA: Assigned male at PATIENT RELEVANT IMPLANT DATA REVIEWED: Not Applicable PATIENT PRESENTS WITH AN IMPLANTABLE OR ATTACHED AUTO BENCH MECHANIC: No RADIOLOGY DEPARTMENT: General X-ray: Exam(s) Completed: Chest X-Ray PERIPHERAL IV DATA: Not applicable SIGNED BY: RT Rustam(R) August 07, 2024 8:42 AM [facility] 08-07-2024 Note HNO ID: [id number] Author: JOSEF BHATT APRN.PARTITION ASSEMBLER Service: ? Author Type: Nurse Practitioner Type: Progress Notes Filed: 08/07/2024 09:10 Note Text: Subjective HPI 74-year-old male presents urgent care chief complaint cough wheezing headache sore throat. Duration of symptoms 10 days. Associated symptoms listed above. Has used Cat-D this has helped some. Denies any known sick contacts. No chest pain fevers hemoptysis pleuritic pain nausea vomiting or abdominal pain. Does have some shortness of breath and wheezing when coughing fits. Has used albuterol in the past this has been helpful however he is currently out. Past medical history prescription medications allergies reviewed .Patient presents with: Cough: Chest congestion, SOB, wheeze, moist cough, headache, chest tightness x 10 days + PAST MEDICAL HISTORY Diagnosis Date Atypical nevi Essential hypertension, benign Limbic system epilepsy (HCC) Malignant melanoma (HCC) Obstructive sleep apnea Paraneoplastic syndrome Recurrent major depression in partial remission 05/13/2020 PAST SURGICAL HISTORY Procedure Laterality Date CHOLECYSTECTOMY Cholecystectomy COLONOSCOPY FLX DX W/COLLJ SPEC WHEN PFRMD 2000 Colonoscopy PAST SURGICAL HISTORY OF nasal polyp surg x 9 PAST SURGICAL HISTORY OF lump on face benign PAST SURGICAL HISTORY OF 2004 removed - mal leslye ALLERGIES Dust, Mold, Primidone, and Trees MEDICATIONS lacosamide (VIMPAT) 100 mg tab Take 1 tablet by mouth two times a day for 180 days. lamoTRIgine (LAMICTAL) 200 mg tablet Take 1 tablet by mouth two times a day. topiramate (TOPAMAX) 100 mg tablet Take 1 tablet by mouth once daily. predniSONE (DELTASONE) 2.5 mg tablet Take 1 tablet by mouth once daily. citalopram (CELEXA) 20 mg tablet Take 1 tablet by mouth once daily. oxybutynin ER (DITROPAN XL) 10 mg 24 hr tablet Take 1 tablet by mouth every afternoon. CPAP/BIPAP/OTHER AutoCPAP 11-20 cmH2O DME [employer] Zinc Gluconate 50 mg tablet Take 50 mg by mouth once daily. During winter months Magnesium Oxide 420 mg tab Take 1 tablet by mouth once daily. Takes during the winter mecobalamin, vitamin B12, 5,000 mcg chew Take 1 tablet by mouth once daily. Takes during the winter multivit-min/FA/lycopen/lutein (CENTRUM SILVER MEN ORAL) Take by mouth once daily. Ascorbic Acid (VITAMIN C) 1,000 mg tablet Take 1,000 mg by mouth once daily. Takes during winter (Patient not taking: Reported on 08/07/2024) albuterol sulfate (PROAIR RESPICLICK) 90 mcg/actuation aepb Inhale 2 Puffs as instructed every 4 hours as needed. (Patient not taking: Reported on 08/07/2024) MYRBETRIQ 50 mg Tb24 Take 50 mg by mouth once daily. (Patient not taking: Reported on 08/07/2024) FAMILY HISTORY Problem Relation Age of Onset Colon Cancer Father Cancer Father lung cancer Coronary Artery Disease Father [place] Coronary Artery Disease Paternal Grandmother Coronary Artery Disease Paternal Grandfather Alzheimer's Disease Mother dementia Social History Tobacco Use Smoking status: Never Smokeless tobacco: Never Substance Use Topics Alcohol use: No Drug use: No BP 170/84 Pulse 65 Temp 37.1 ?C (98.7 ?F) Resp 22 Wt 85 kg (187 lb 6.3 oz) SpO2 98% BMI 31.18 kg/m? Review of Systems Constitutional: Negative for chills, fever and malaise/fatigue. HENT: Positive for congestion. Negative for ear discharge, ear pain, sinus pain and sore throat. Eyes: Negative for blurred vision, pain, discharge and redness. Respiratory: Positive for cough, shortness of breath and wheezing. Negative for hemoptysis, sputum production and stridor. Cardiovascular: Negative for chest pain. Gastrointestinal: Negative for abdominal pain, diarrhea, nausea and vomiting. Musculoskeletal: Negative for myalgias. Skin: Negative for itching and rash. Neurological: Negative for dizziness and headaches. Objective Physical Exam Constitutional: General: He is not in acute distress. Appearance: He is not diaphoretic. HENT: Head: Normocephalic. Jaw: No trismus, tenderness, swelling or pain on movement. Nose: Congestion present. Mouth/Throat: Mouth: Mucous membranes are moist. Pharynx: Oropharynx is clear. Uvula midline. No pharyngeal swelling, oropharyngeal exudate, posterior oropharyngeal erythema or uvula swelling. Eyes: Conjunctiva/sclera: Conjunctivae normal. Pupils: Pupils are equal, round, and reactive to light. Cardiovascular: Rate and Rhythm: Normal rate and regular rhythm. Heart sounds: Normal heart sounds. Pulmonary: Effort: Pulmonary effort is normal. No tachypnea, accessory muscle usage or respiratory distress. Breath sounds: No stridor. Wheezing present. No rhonchi or rales. Musculoskeletal: Cervical back: Normal range of motion and neck supple. No edema, erythema, rigidity or tenderness. No pain with movement. Normal range of motion. Lymphadenopathy: Cervical: N (more content not included)... [facility] 04-16-2024 Note HNO ID: [id number] Author: KEON JEAN MD Service: ? Author Type: Physician Type: Progress Notes Filed: 04/16/2024 12:24 Note Text: Patient presents with: Cough: Cough, sinus, congestion, ST and BONE x 1 week HPI: Feeling sick for 8 days. His has been sick also. They watch grandchildren who were ill and their daughter had influenza like illness too. 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 lamoTRIgine (LAMICTAL) 200 mg tablet Take 1 tablet by mouth two times a day. topiramate (TOPAMAX) 100 mg tablet Take 1 tablet by mouth once daily. predniSONE (DELTASONE) 2.5 mg tablet Take 1 tablet by mouth once daily. citalopram (CELEXA) 20 mg tablet Take 1 tablet by mouth once daily. oxybutynin ER (DITROPAN XL) 10 mg 24 hr tablet Take 1 tablet by mouth every afternoon. CPAP/BIPAP/OTHER AutoCPAP 11-20 cmH2O DME [employer] Zinc Gluconate 50 mg tablet Take 50 mg by mouth once daily. During winter months Ascorbic Acid (VITAMIN C) 1,000 mg tablet Take 1,000 mg by mouth once daily. Takes during winter Magnesium Oxide 420 mg tab Take 1 tablet by mouth once daily. Takes during the winter months mecobalamin, vitamin B12, 5,000 mcg chew Take 1 tablet by mouth once daily. Takes during the winter months albuterol sulfate (PROAIR RESPICLICK) 90 mcg/actuation aepb Inhale 2 Puffs as instructed every 4 hours as needed. multivit-min/FA/lycopen/lutein (CENTRUM SILVER MEN ORAL) Take by mouth once daily. MYRBETRIQ 50 mg Tb24 Take 50 mg by mouth once daily. No current facility-administered medications for this visit. ALLERGIES: ALLERGIES Allergen Reactions Dust Mold Intolerance Primidone Unknown Trees Intolerance VITALS: BP 162/88 Pulse 64 Temp 36.7 ?C (98 ?F) (Tympanic) Resp 16 Wt 86.3 kg (190 lb 4.1 oz) SpO2 96% BMI 31.66 kg/m? PHYSICAL EXAM: GEN: mildly ill appearing. Accompanied by his HEENT: PERRL, EOMI, conjunctiva clear Ears: canals clear. TMs without erythema, bulge, or effusion Sinuses: non-tender frontal sinus, non-tender maxillary sinuses Throat: moist mucous membranes, mild erythema, no exudate Neck: supple, no thyromegaly, no lymphadenopathy HEART: slow rate, regular rhythm, no murmurs LUNGS: clear to auscultation, no wheezes or crackles, no increased WOB ASSESSMENT/PLAN: 1. Influenza-like illness - ICD9: 487.1, ICD10: J11.1 Probable influenza (His tested positive for influenza A today). - suspect viral URI - Discussed supportive care treatment with rest, cough medicine, and analgesia. He declines prescription cough medicine and would prefer conservative management. Keon Jean MD [facility] 04-16-2024 History of Presen t illness Narrative Patient presents with: Cough: Cough, sinus, congestion, ST and BONE x 1 week HPI: Feeling sick for 8 days. His has been sick also. They watch grandchildren who were ill and their daughter had influenza like illness too. 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 lamoTRIgine (LAMICTAL) 200 mg tablet Take 1 tablet by mouth two times a day. topiramate (TOPAMAX) 100 mg tablet Take 1 tablet by mouth once daily. predniSONE (DELTASONE) 2.5 mg tablet Take 1 tablet by mouth once daily. citalopram (CELEXA) 20 mg tablet Take 1 tablet by mouth once daily. oxybutynin ER (DITROPAN XL) 10 mg 24 hr tablet Take 1 tablet by mouth every afternoon. CPAP/BIPAP/OTHER AutoCPAP 11-20 cmH2O DME [employer] Zinc Gluconate 50 mg tablet Take 50 mg by mouth once daily. During winter months Ascorbic Acid (VITAMIN C) 1,000 mg tablet Take 1,000 mg by mouth once daily. Takes during winter Magnesium Oxide 420 mg tab Take 1 tablet by mouth once daily. Takes during the winter mecobalamin, vitamin B12, 5,000 mcg chew Take 1 tablet by mouth once daily. Takes during the winter albuterol sulfate (PROAIR RESPICLICK) 90 mcg/actuation aepb Inhale 2 Puffs as instructed every 4 hours as needed. multivit-min/FA/lycopen/lutein (CENTRUM SILVER MEN ORAL) Take by mouth once daily. MYRBETRIQ 50 mg Tb24 Take 50 mg by mouth once daily. No current facility-administered medications for this visit. ALLERGIES: ALLERGIES Allergen Reactions Dust Mold Intolerance Primidone Unknown Trees Intolerance VITALS: BP 162/88 Pulse 64 Temp 36.7 C (98 F) (Tympanic) Resp 16 Wt 86.3 kg (190 lb 4.1 oz) SpO2 96% BMI 31.66 kg/m PHYSICAL EXAM: GEN: mildly ill appearing. Accompanied by his HEENT: PERRL, EOMI, conjunctiva clear Ears: canals clear. TMs without erythema, bulge, or effusion Sinuses: non-tender frontal sinus, non-tender maxillary sinuses Throat: moist mucous membranes, mild erythema, no exudate Neck: supple, no thyromegaly, no lymphadenopathy HEART: slow rate, regular rhythm, no murmurs LUNGS: clear to auscultation, no wheezes or crackles, no increased WOB ASSESSMENT/PLAN: 1. Influenza-like illness - ICD9: 487.1, ICD10: J11.1 Probable influenza (His tested positive for influenza A today). - suspect viral URI - Discussed supportive care treatment with rest, cough medicine, and analgesia. He declines prescription cough medicine and would prefer conservative management. Keon Jean MD documented in this encounter [facility] 04-02-2024 Telephone encounter Note The following approved medication requests have been transmitted electronically. Requested Prescriptions Signed Prescriptions Disp Refills lacosamide (VIMPAT) 100 mg tab 60 tablet 5 Sig: Take 1 tablet by mouth two times a day for 180 days. Authorizing Provider: HANNAH ALMENDAREZ APRN.CNP [facility] 04-02-2024 Miscellaneous Notes The following approved medication requests have been transmitted electronically. Requested Prescriptions Signed Prescriptions Disp Refills lacosamide (VIMPAT) 100 mg tab 60 tablet 5 Sig: Take 1 tablet by mouth two times a day for 180 days. Authorizing Provider: HANNAH ALMENDAREZ APRN.CNP Prescription Refill: Patient is out of medicationPharmacy states they need a new script with 5 refills instead of 11 for a controlled substance Requested by: patient Please E-Scribe Caller Contact Number: [phone] (home) Pharmacy Name: [facility] Pharmacy Number: [id number] Generic/ brand: Generic 30 or 90 day supply requested: 30 Last appointment: 04/01/24 Next Appointment: none Patient of Dr. Darshan Beltran [id number] [place] [id number] documented in this encounter [facility] 04-02-2024 Telephone encounter Note Prescription Refill: Patient is out of medicationPharmacy states they need a new script with 5 refills instead of 11 for a controlled substance Requested by: patient Please E-Scribe Caller Contact Number: [phone] (home) Pharmacy Name: [facility] Pharmacy Number: [phone] Generic/ brand: Generic 30 or 90 day supply requested: 30 Last appointment: 04/01/24 Next Appointment: none Patient of Dr. Darshan Beltran [id number] [address] [facility] 04-01-2024 Note HNO ID: [id number] Author: WILLIAMS SEXTON MD Service: ? 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 He was being tested for possible DBS therapy for his left sided tremor (but the evaluation appears to be on hold). He continues without any seizures since our last visit. He denies any side effects on the medication. He has continued to have some tremor related dysfunction that has progressed some (He is still able to feed himself and walk with no falls, but cannot walk on uneven surfaces). He has not had any seizures since our last visit. He continues to struggle with his memory, especially short term. He has not had any falls at home. Interval History: Seizure medication: LCM 100mg BID LTG 200mg BID TPM 100mg daily Side effects: sleeps a lot Seizures: There have been no seizures. His last seizure was >10 years ago. Other health: He continues to take Prednisone 2.5 mg PO Qdaily and Celexa 20mg QAM for depression. His mood has been good on Celexa. He had been taking aspirin daily, but stopped 1 year ago. No new medications, other than an temporary antibiotic last month for a cold (seen in urgent care). Component Latest Ref Rng AND Units 03/29/2017 03/19/2018 Lacosamide 2.2 - 19.8 ug/mL 4.7 6.0 Desmethyllacosamide <2.6 ug/mL 0.8 0.8 Lamotrigine 1 - 13 ug/mL 4.5 5.3 Topiramate 5.0 - 20.0 ug/mL 7.3 8.4 KAREN 02/16/2022: He has not had any seizures since our last visit. He denies any side effects on the medication. His tremors are slowly getting worse (He can feed himself, but has trouble with small foods like pees). He has not fallen but has come close several times. He had an ambulatory EEG done in February 2016 that was normal. Last autoimmune panel was negative 01/2016. He had left hip surgery on June 21, 2017. Patient reports no left him pain anymore. Tremor (Lt hand>Rt hand) is worse since the last visit. Continues to follow Dr. Galloway who recommends brain stimulation however patient is still not interested. Continues to have BONE when he is tired. If he uses CPAP, no headaches. is concerned about intermediate use of Prednisone for his bone health. Wants to know if it should be continued. Continues to take Celexa for depression. Otherwise he is stable overall. CURRENT AEDs: TPM 100 QAM LCM 100 BID LTG 200 BID CURRENT SEIZURE DESCRIPTION AND FREQUENCY: Seizure Type A: Autonomic Seizure vs Paroxysmal Events. He will feel light headed, then have tremors in both arms. He will have a far away look and a grimace on his face like he is going to cry. He may not respond appropriately and he may say I am okay during his events. He appears confused after the event is over. He is currently not having any episodes. PREVIOUS EVALUATIONS: EEG ([facility], 03/18/09 - 03/22/09): Interictal: None Ictal: Clinical seizure: Autonomic Seizure (28 recorded; 3-21P, 23-32P) EEG seizure: Regional, vertex Clinical seizure: Autonomic Aura (2 recorded; 1A, 2A) EEG seizure: No EEG change Clinical seizure: Paroxysmal Event (2 recorded; 5E, 22E) EEG seizure: No EEG change EEG: ([facility],02/11/09): Normal (Awake, Drowsy, Anterior temporal electrodes) 1 EEG: No EEG Change Seizure: Paroxysmal Event This EEG is within normal limits. The patient had one typical event (reporting he had an event, with observed twitching in lower lip) lasting less than 30 seconds, with no definite EEG correlate. No epileptiform abnormalities were recorded. Ambulatory EEG (03/20/16) Classification Normal (Awake, Sleep, 10-20 Scalp Electrodes) Impression This 23 hours 40 minutes ambulatory EEG is normal. Epileptiform activity and seizure patterns were not seen. The patient did not have any documented events during this period Video EEG :([facility], 02/12/09): Normal (Awake, Sleep) 1 EEG: No EEG Change Seizure: Paroxysmal Event This multi-hour EEG done from 8:14AM on 02/11/09 to 6:23AM on 02/12/09 is within normal limits. Multiple self-reported spells were captured with no apparent EEG change. No epileptiform activity or EEg seizures were seen during this study. Video EEG :([facility], 02/13/09): Normal (Awake, Sleep) This EEG is within normal limits. No epileptiform discharges or electrographic seizures were noted. MRI: ([facility],02/11/09): 1. NO ACUTE INTRACRANIAL PROCESS 2. NO SUSPICIOUS ENHANCEMENT OR MASS OR SIGNAL ABNORMALITY TO SUGGEST METASTATIC DISEASE 3. METALLIC ARTIFACT FROM RIGHT SUPRA-ORBITAL REGION (? RIGHT FRONTAL SINUS), OF UNCE (more content not included)... 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 He was being tested for possible DBS therapy for his left sided tremor (but the evaluation appears to be on hold). He continues without any seizures since our last visit. He denies any side effects on the medication. He has continued to have some tremor related dysfunction that has progressed some (He is still able to feed himself and walk with no falls, but cannot walk on uneven surfaces). He has not had any seizures since our last visit. He continues to struggle with his memory, especially short term. He has not had any falls at home. Interval History: Seizure medication: LCM 100mg BID LTG 200mg BID TPM 100mg daily Side effects: sleeps a lot Seizures: There have been no seizures. His last seizure was >10 years ago. Other health: He continues to take Prednisone 2.5 mg PO Qdaily and Celexa 20mg QAM for depression. His mood has been good on Celexa. He had been taking aspirin daily, but stopped 1 year ago. No new medications, other than an temporary antibiotic last month for a cold (seen in urgent care). Component Latest Ref Rng & Units 03/29/2017 03/19/2018 Lacosamide 2.2 - 19.8 ug/mL 4.7 6.0 Desmethyllacosamide <2.6 ug/mL 0.8 0.8 Lamotrigine 1 - 13 ug/mL 4.5 5.3 Topiramate 5.0 - 20.0 ug/mL 7.3 8.4 KAREN 02/16/2022: He has not had any seizures since our last visit. He denies any side effects on the medication. His tremors are slowly getting worse (He can feed himself, but has trouble with small foods like pees). He has not fallen but has come close several times. He had an ambulatory EEG done in February 2016 that was normal. Last autoimmune panel was negative 01/2016. He had left hip surgery on June 21, 2017. Patient reports no left him pain anymore. Tremor (Lt hand>Rt hand) is worse since the last visit. Continues to follow Dr. Galloway who recommends brain stimulation however patient is still not interested. Continues to have BONE when he is tired. If he uses CPAP, no headaches. is concerned about intermediate use of Prednisone for his bone health. Wants to know if it should be continued. Continues to take Celexa for depression. Otherwise he is stable overall. CURRENT AEDs: TPM 100 QAM LCM 100 BID LTG 200 BID CURRENT SEIZURE DESCRIPTION AND FREQUENCY: Seizure Type A: Autonomic Seizure vs Paroxysmal Events. He will feel light headed, then have tremors in both arms. He will have a far away look and a grimace on his face like he is going to cry. He may not respond appropriately and he may say I am okay during his events. He appears confused after the event is over. He is currently not having any episodes. PREVIOUS EVALUATIONS: EEG ([facility], 03/18/09 - 03/22/09): Interictal: None Ictal: Clinical seizure: Autonomic Seizure (28 recorded; 3-21P, 23-32P) EEG seizure: Regional, vertex Clinical seizure: Autonomic Aura (2 recorded; 1A, 2A) EEG seizure: No EEG change Clinical seizure: Paroxysmal Event (2 recorded; 5E, 22E) EEG seizure: No EEG change EEG: ([facility],02/11/09): Normal (Awake, Drowsy, Anterior temporal electrodes) 1 EEG: No EEG Change Seizure: Paroxysmal Event This EEG is within normal limits. The patient had one typical event (reporting he had an event, with observed twitching in lower lip) lasting less than 30 seconds, with no definite EEG correlate. No epileptiform abnormalities were recorded. Ambulatory EEG (03/20/16) Classification Normal (Awake, Sleep, 10-20 Scalp Electrodes) Impression This 23 hours 40 minutes ambulatory EEG is normal. Epileptiform activity and seizure patterns were not seen. The patient did not have any documented events during this period Video EEG :([facility], 02/12/09): Normal (Awake, Sleep) 1 EEG: No EEG Change Seizure: Paroxysmal Event This multi-hour EEG done from 8:14AM on 02/11/09 to 6:23AM on 02/12/09 is within normal limits. Multiple self-reported spells were captured with no apparent EEG change. No epileptiform activity or EEg seizures were seen during this study. Video EEG :([facility], 02/13/09): Normal (Awake, Sleep) This EEG is within normal limits. No epileptiform discharges or electrographic seizures were noted. MRI: ([facility],02/11/09): 1. NO ACUTE INTRACRANIAL PROCESS 2. NO SUSPICIOUS ENHANCEMENT OR MASS OR SIGNAL ABNORMALITY TO SUGGEST METASTATIC DISEASE 3. METALLIC ARTIFACT FROM RIGHT SUPRA-ORBITAL REGION (? RIGHT FRONTAL SINUS), OF UNCERTAIN ETIOLOGY. CLINICAL CORRELATION RECOMMENDED. PAST MEDICAL HISTORY: 1. Sinus disease, s/p multiple nasal polypectomies 2. HTN 3. Tremors 4. A mole removed from his back was read as malignant melanoma 5. 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 Gall bladder removal EPILEPSY RISK FACTORS: 1. History of head trauma (No) 2. History of febrile seizures (No) 3. History of meningitis/encephalitis (No) 4. Family history of epilepsy (No) 5. Known HELP DESK REPRESENTATIVE Tumors/Structural Lesion (No) 6. HELP DESK REPRESENTATIVE Vascular disease (No) 7. Developmental Delay (No) FAMILY HISTORY: Father had lung cancer (heavy smoker), Heart disease, Sister had breast cancer. Another sister had a pituitary tumor, Dementia, Diabetes. SOCIAL HISTORY: Terell Beltran lives in [place], [place] with . 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 oxybutynin ER (DITROPAN XL) 10 mg 24 hr tablet Take 1 tablet by mouth every afternoon. lamoTRIgine (LAMICTAL) 200 mg tablet Take 1 tablet by mouth two times a day. topiramate (TOPAMAX) 100 mg tablet Take 1 tablet by mouth every morning. predniSONE (DELTASONE) 2.5 mg tablet Take 1 tablet by mouth once daily. citalopram (CELEXA) 20 mg tablet Take 1 tablet by mouth once daily. CPAP/BIPAP/OTHER AutoCPAP 11-20 cmH2O DME [employer] Zinc Gluconate 50 mg tablet Take 50 mg by mouth once daily. During winter months Ascorbic Acid (VITAMIN C) 1,000 mg tablet Take 1,000 mg by mouth once daily. Takes during winter months Magnesium Oxide 420 mg tab Take 1 tablet by mouth once daily. Takes during the winter months mecobalamin, vitamin B12, 5,000 mcg chew Take 1 tablet by mouth once daily. Takes during the winter months albuterol sulfate (PROAIR RESPICLICK) 90 mcg/actuation aepb Inhale 2 Puffs as instructed every 4 hours as needed. multivit-min/FA/lycopen/lutein (CENTRUM SILVER MEN ORAL) Take by mouth once daily. MYRBETRIQ 50 mg Tb24 Take 50 mg by mouth once daily. PREVIOUS ANTIEPILEPTIC MEDICATIONS: Lamictal VITALS: 04/01/24 1438 BP: 166/83 BP Site: Left Arm BP Position: Sitting BP Cuff Size: Large Adult Pulse: 66 Resp: 16 SpO2: 98% Weight: 86.2 kg (190 lb) Height: 165.1 cm (5' 5) PHYSICAL EXAM: General: Average, well developed and appears healthy, in NAD NEUROLOGIC EXAM: MENTAL STATUS: Alert and oriented to person place and time, follows 1 and 2 step commands, speech fluent and without anomia or paraphasic errors. Remote memory intact, with prompting. No neglect. CRANIAL NERVES: Pupils equal and reactive to light bilat. Visual stephens full. EOMI. Face symmetric. Palate elevates equally bilaterally, tongue midline. MOTOR: Strength: RUE: 5/5, RLE: 5/5, LUE: 5/5, LLE: 5/5. Tone is normal, bulk is symmetric. BUE resting and action tremor, about equal with both pill rolling and flapping qualities. SENSORY: Intact to light touch throughout CEREBELLUM: Finger to Nose testing shows tremor but no ataxia. 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 He was being tested for possible DBS therapy for his left sided tremor (but the evaluation appears to be on hold). He continues without any seizures since our last visit. He denies any side effects on the medication. He has continued to have some tremor related dysfunction that has progressed some (He is still able to feed himself and walk with no falls, but cannot walk on uneven surfaces). He has not had any seizures since our last visit. He continues to struggle with his memory, especially short term. He has not had any falls at home. PLAN: - 20 minutes of daily aerobic exercise (he expects to do more when the weather improves). - CBC, CMP and Lamictal and Lacosamide levels - Continue Lamictal at 200 mg PO BID. (level 6.4 03/20/23) - Continue Vimpat to 100 mg PO BID. (level 5.6 03/20/23) - Continue Topamax 100mg Qam. (level 3.4 03/20/23) - Continue Prednisone 2.5 mg PO Qdaily. - Continue Celexa 20mg QAM for depression. - 6 months Care Coordination The majority of the visit was spent counseling and/or coordinating care for the patient. [id number] time was 30 minutes Williams Sexton MD Beeper Number: [id number] Date of Service: April 01, 2024 documented in this encounter [facility] 03-03-2024 Telephone encounter Note Faxed signed CMN and signed office notes. Refaxed office note dated 03/12/2023 that was originally sent on 06/01/2023 to [facility] at [phone]. [facility] 03-03-2024 Miscellaneous Notes Faxed signed CMN and signed office notes. Refaxed office note dated 03/12/2023 that was originally sent on 06/01/2023 to [facility] at [phone]. documented in this encounter [facility] 02-12-2024 Note HNO ID: [id number] Author: ?, ?, ? Service: ? Author Type: ? Type: Progress Notes Filed: 02/18/2024 15:11 Note Text: CMN RECEIVED BY [employer] VIA FAX, COMPLETED, AND PLACED IN PROVIDER MAILBOX FOR SIGNATURE Gila Dawn Vice President Of [employer] SENDING CMN: Nick SIGNED AND DATED CMN, FAXED TO DME AND CONFIRMATION PAGE RECEIVED: 02/18/2024 [facility] 02-12-2024 History of Presen t illness Narrative CMN RECEIVED BY [facility] [employer] VIA FAX, COMPLETED, AND PLACED IN PROVIDER MAILBOX FOR SIGNATURE Gila Dawn Vice President [employer] SENDING CMN: Nick SIGNED AND DATED CMN, FAXED TO DME & CONFIRMATION PAGE RECEIVED: 02/18/2024 documented in this encounter [facility] 09-27-2023 Telephone encounter Note Patient's request for medication is as follows: Requested Prescriptions Signed Prescriptions Disp Refills lacosamide (VIMPAT) 100 mg tab 60 tablet 5 Sig: Take 1 tablet by mouth two times a day. Authorizing Provider: DARVIN DALLAS Approved the above prescription and sent electronically to [facility] pharmacy in [place], [place]. PDMP website checked and validated. All prescriptions have been APPROPRIATELY filled. No suspicious activity was identified.# [id number]. 09/27/2023 by Darvin Dallas APRN.CNP . Darvin Dallas APRN.DARSHAN [facility] 09-27-2023 Miscellaneous Notes Patient's request for medication is as follows: Requested Prescriptions Signed Prescriptions Disp Refills lacosamide (VIMPAT) 100 mg tab 60 tablet 5 Sig: Take 1 tablet by mouth two times a day. Authorizing Provider: DARVIN DALLAS Approved the above prescription and sent electronically to [facility] pharmacy in [place], [place]. PDMP website checked and validated. All prescriptions have been APPROPRIATELY filled. No suspicious activity was identified.# [id number]. 09/27/2023 by Darvin Dallas APRN.CNP . Darvin Dallas APRN.CNP Prescription Refill: new Rx w/ 5 refills only required by pharmacy Requested by: pharmacy Please E-Scribe Caller Contact Number: Pharmacy Name: [facility] Pharmacy Number: [phone] Generic/ brand: 30 or 90 day supply requested: 90 Last appointment: 09/25/23 Next Appointment: none Patient of Dr. Sexton documented in this encounter [facility] 09-27-2023 Telephone encounter Note Prescription Refill: new Rx w/ 5 refills only required by pharmacy Requested by: pharmacy Please E-Scribe Caller Contact Number: Pharmacy Name: [facility] Pharmacy Number: [phone] Generic/ brand: 30 or 90 day supply requested: 90 Last appointment: 09/25/23 Next Appointment: none Patient of Dr. Sexton [facility] 09-25-2023 Telephone encounter Note The following approved medication requests have been transmitted electronically. Requested Prescriptions Signed Prescriptions Disp Refills lacosamide (VIMPAT) 100 mg tab 60 tablet 11 Sig: Take 1 tablet by mouth two times a day. Authorizing Provider: CARLITOS MOBLEY PA-C PDMP website checked and validated. All prescriptions have been APPROPRIATELY filled. No suspicious activity was identified. 09/25/2023 by Carlitos Mobley PA-C [facility] 09-25-2023 Miscellaneous Notes The following approved medication requests have been transmitted electronically. Requested Prescriptions Signed Prescriptions Disp Refills lacosamide (VIMPAT) 100 mg tab 60 tablet 11 Sig: Take 1 tablet by mouth two times a day. Authorizing Provider: CARLITOS MOBLEY PA-C PDMP website checked and validated. All prescriptions have been APPROPRIATELY filled. No suspicious activity was identified. 09/25/2023 by Carlitos Mobley PA-C Images from the original note were not included. Prescription Refill: Pharmacy requesting new Rx Requested by: pharmacy Please E-Scribe Caller Contact Number: Pharmacy Name: [facility] Pharmacy Number: [phone] Generic/ brand: 30 or 90 day supply requested: 90 Last appointment: 09/25/23 Next Appointment: none Patient of Dr. Sexton documented in this encounter [facility] 09-25-2023 Telephone encounter Note Images from the original note were not included. Prescription Refill: Pharmacy requesting new Rx Requested by: pharmacy Please E-Scribe Caller Contact Number: Pharmacy Name: [facility] Pharmacy Number: [phone] Generic/ brand: 30 or 90 day supply requested: 90 Last appointment: 09/25/23 Next Appointment: none Patient of Dr. Sexton [facility] 09-25-2023 Note HNO ID: [id number] Author: WILLIAMS SEXTON MD Service: ? 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 He was being tested for possible DBS therapy for his left sided tremor (but the evaluation appears to be on hold). He continues without any seizures since our last visit. He denies any side effects on the medication. He has not had any seizures since our last visit. He has continued to have some tremor related dysfunction that has progressed some (He is still able to feed himself and walk with no falls, but cannot walk on uneven surfaces). . He has also some worsening memory problems. Interval History: Seizure medication: LCM 100mg BID LTG 200mg BID TPM 100mg daily Side effects: sleeps a lot Seizures: There have been no seizures. His last seizure was >10 years ago. Other health: He continues to take Prednisone 2.5 mg PO Qdaily and Celexa 20mg QAM for depression. His mood has been good on Celexa. He had been taking aspirin daily, but stopped 1 year ago. No new medications, other than an temporary antibiotic last month for a cold (seen in urgent care). Component Latest Ref Rng AND Units 03/29/2017 03/19/2018 Lacosamide 2.2 - 19.8 ug/mL 4.7 6.0 Desmethyllacosamide <2.6 ug/mL 0.8 0.8 Lamotrigine 1 - 13 ug/mL 4.5 5.3 Topiramate 5.0 - 20.0 ug/mL 7.3 8.4 KAREN 02/16/2022: He has not had any seizures since our last visit. He denies any side effects on the medication. His tremors are slowly getting worse (He can feed himself, but has trouble with small foods like pees). He has not fallen but has come close several times. He had an ambulatory EEG done in February 2016 that was normal. Last autoimmune panel was negative 01/2016. He had left hip surgery on June 21, 2017. Patient reports no left him pain anymore. Tremor (Lt hand>Rt hand) is worse since the last visit. Continues to follow Dr. Galloway who recommends brain stimulation however patient is still not interested. Continues to have BONE when he is tired. If he uses CPAP, no headaches. 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 Wants to know if it should be continued. Continues to take Celexa for depression. Otherwise he is stable overall. CURRENT AEDs: TPM 100 QAM LCM 100 BID LTG 200 BID CURRENT SEIZURE DESCRIPTION AND FREQUENCY: Seizure Type A: Autonomic Seizure vs Paroxysmal Events. He will feel light headed, then have tremors in both arms. He will have a far away look and a grimace on his face like he is going to cry. He may not respond appropriately and he may say I am okay during his events. He appears confused after the event is over. He is currently not having any episodes. PREVIOUS EVALUATIONS: EEG ([facility], 03/18/09 - 03/22/09): Interictal: None Ictal: Clinical seizure: Autonomic Seizure (28 recorded; 3-21P, 23-32P) EEG seizure: Regional, vertex Clinical seizure: Autonomic Aura (2 recorded; 1A, 2A) EEG seizure: No EEG change Clinical seizure: Paroxysmal Event (2 recorded; 5E, 22E) EEG seizure: No EEG change EEG: ([facility],02/11/09): Normal (Awake, Drowsy, Anterior temporal electrodes) 1 EEG: No EEG Change Seizure: Paroxysmal Event This EEG is within normal limits. The patient had one typical event (reporting he had an event, with observed twitching in lower lip) lasting less than 30 seconds, with no definite EEG correlate. No epileptiform abnormalities were recorded. Ambulatory EEG (03/20/16) Classification Normal (Awake, Sleep, 10-20 Scalp Electrodes) Impression This 23 hours 40 minutes ambulatory EEG is normal. Epileptiform activity and seizure patterns were not seen. The patient did not have any documented events during this period Video EEG :([facility], 02/12/09): Normal (Awake, Sleep) 1 EEG: No EEG Change Seizure: Paroxysmal Event This multi-hour EEG done from 8:14AM on 02/11/09 to 6:23AM on 02/12/09 is within normal limits. Multiple self-reported spells were captured with no apparent EEG change. No epileptiform activity or EEg seizures were seen during this study. Video EEG :([facility], 02/13/09): Normal (Awake, Sleep) This EEG is within normal limits. No epileptiform discharges or electrographic seizures were noted. MRI: ([facility],02/11/09): 1. NO ACUTE INTRACRANIAL PROCESS 2. NO SUSPICIOUS ENHANCEMENT OR MASS OR SIGNAL ABNORMALITY TO SUGGEST METASTATIC DISEASE 3. METALLIC ARTIFACT FROM RIGHT SUPRA-ORBITAL REGION (? RIGHT FRONTAL SINUS), OF UNCERTAIN ETIOLOGY. CLINICAL CORRELATION RECOMMENDED. PAST (more content not included)... 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 He was being tested for possible DBS therapy for his left sided tremor (but the evaluation appears to be on hold). He continues without any seizures since our last visit. He denies any side effects on the medication. He has not had any seizures since our last visit. He has continued to have some tremor related dysfunction that has progressed some (He is still able to feed himself and walk with no falls, but cannot walk on uneven surfaces). . He has also some worsening memory problems. Interval History: Seizure medication: LCM 100mg BID LTG 200mg BID TPM 100mg daily Side effects: sleeps a lot Seizures: There have been no seizures. His last seizure was >10 years ago. Other health: He continues to take Prednisone 2.5 mg PO Qdaily and Celexa 20mg QAM for depression. His mood has been good on Celexa. He had been taking aspirin daily, but stopped 1 year ago. No new medications, other than an temporary antibiotic last month for a cold (seen in urgent care). Component Latest Ref Rng & Units 03/29/2017 03/19/2018 Lacosamide 2.2 - 19.8 ug/mL 4.7 6.0 Desmethyllacosamide <2.6 ug/mL 0.8 0.8 Lamotrigine 1 - 13 ug/mL 4.5 5.3 Topiramate 5.0 - 20.0 ug/mL 7.3 8.4 KAREN 02/16/2022: He has not had any seizures since our last visit. He denies any side effects on the medication. His tremors are slowly getting worse (He can feed himself, but has trouble with small foods like pees). He has not fallen but has come close several times. He had an ambulatory EEG done in February 2016 that was normal. Last autoimmune panel was negative 01/2016. He had left hip surgery on June 21, 2017. Patient reports no left him pain anymore. Tremor (Lt hand>Rt hand) is worse since the last visit. Continues to follow Dr. Galloway who recommends brain stimulation however patient is still not interested. Continues to have BONE when he is tired. If he uses CPAP, no headaches. 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 Wants to know if it should be continued. Continues to take Celexa for depression. Otherwise he is stable overall. CURRENT AEDs: TPM 100 QAM LCM 100 BID LTG 200 BID CURRENT SEIZURE DESCRIPTION AND FREQUENCY: Seizure Type A: Autonomic Seizure vs Paroxysmal Events. He will feel light headed, then have tremors in both arms. He will have a far away look and a grimace on his face like he is going to cry. He may not respond appropriately and he may say I am okay during his events. He appears confused after the event is over. He is currently not having any episodes. PREVIOUS EVALUATIONS: EEG ([facility], 03/18/09 - 03/22/09): Interictal: None Ictal: Clinical seizure: Autonomic Seizure (28 recorded; 3-21P, 23-32P) EEG seizure: Regional, vertex Clinical seizure: Autonomic Aura (2 recorded; 1A, 2A) EEG seizure: No EEG change Clinical seizure: Paroxysmal Event (2 recorded; 5E, 22E) EEG seizure: No EEG change EEG: ([facility],02/11/09): Normal (Awake, Drowsy, Anterior temporal electrodes) 1 EEG: No EEG Change Seizure: Paroxysmal Event This EEG is within normal limits. The patient had one typical event (reporting he had an event, with observed twitching in lower lip) lasting less than 30 seconds, with no definite EEG correlate. No epileptiform abnormalities were recorded. Ambulatory EEG (03/20/16) Classification Normal (Awake, Sleep, 10-20 Scalp Electrodes) Impression This 23 hours 40 minutes ambulatory EEG is normal. Epileptiform activity and seizure patterns were not seen. The patient did not have any documented events during this period Video EEG :([facility], 02/12/09): Normal (Awake, Sleep) 1 EEG: No EEG Change Seizure: Paroxysmal Event This multi-hour EEG done from 8:14AM on 02/11/09 to 6:23AM on 02/12/09 is within normal limits. Multiple self-reported spells were captured with no apparent EEG change. No epileptiform activity or EEg seizures were seen during this study. Video EEG :([facility], 02/13/09): Normal (Awake, Sleep) This EEG is within normal limits. No epileptiform discharges or electrographic seizures were noted. MRI: ([facility],02/11/09): 1. NO ACUTE INTRACRANIAL PROCESS 2. NO SUSPICIOUS ENHANCEMENT OR MASS OR SIGNAL ABNORMALITY TO SUGGEST METASTATIC DISEASE 3. METALLIC ARTIFACT FROM RIGHT SUPRA-ORBITAL REGION (? RIGHT FRONTAL SINUS), OF UNCERTAIN ETIOLOGY. CLINICAL CORRELATION RECOMMENDED. PAST MEDICAL HISTORY: 1. Sinus disease, s/p multiple nasal polypectomies 2. HTN 3. Tremors 4. A mole removed from his back was read as malignant melanoma 5. 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 Gall bladder removal EPILEPSY RISK FACTORS: 1. History of head trauma (No) 2. History of febrile seizures (No) 3. History of meningitis/encephalitis (No) 4. Family history of epilepsy (No) 5. Known HELP DESK REPRESENTATIVE Tumors/Structural Lesion (No) 6. HELP DESK REPRESENTATIVE Vascular disease (No) 7. Developmental Delay (No) FAMILY HISTORY: Father had lung cancer (heavy smoker), Heart disease, Sister had breast cancer. Another sister had a pituitary tumor, Dementia, Diabetes. SOCIAL HISTORY: Terell Beltran lives in [place], [place] with . 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 CPAP/BIPAP/OTHER AutoCPAP 11-20 cmH2O DME [facility] lamoTRIgine (LAMICTAL) 200 mg tablet Take 1 tablet by mouth two times a day. topiramate (TOPAMAX) 100 mg tablet Take 1 tablet by mouth once daily. predniSONE (DELTASONE) 2.5 mg tablet Take 1 tablet by mouth once daily. citalopram (CELEXA) 20 mg tablet Take 1 tablet by mouth once daily. Zinc Gluconate 50 mg tablet Take 50 mg by mouth once daily. During winter months Ascorbic Acid (VITAMIN C) 1,000 mg tablet Take 1,000 mg by mouth once daily. Takes during winter Magnesium Oxide 420 mg tab Take 1 tablet by mouth once daily. Takes during the winter mecobalamin, vitamin B12, 5,000 mcg chew Take 1 tablet by mouth once daily. Takes during the winter albuterol sulfate (PROAIR RESPICLICK) 90 mcg/actuation aepb Inhale 2 Puffs as instructed every 4 hours as needed. multivit-min/FA/lycopen/lutein (CENTRUM SILVER MEN ORAL) Take by mouth once daily. MYRBETRIQ 50 mg Tb24 Take 50 mg by mouth once daily. lacosamide (VIMPAT) 100 mg tab Take 1 tablet by mouth two times a day for 180 days. PREVIOUS ANTIEPILEPTIC MEDICATIONS: Lamictal VITALS: 09/25/23 1452 BP: 155/75 BP Site: Left Arm BP Position: Sitting BP Cuff Size: Large Adult Pulse: 76 Resp: 18 SpO2: 100% Weight: 87.1 kg (192 lb) Height: 165.1 cm (5' 5) PHYSICAL EXAM: General: Average, well developed and appears healthy, in NAD NEUROLOGIC EXAM: MENTAL STATUS: Alert and oriented to person place and time, follows 1 and 2 step commands, speech fluent and without anomia or paraphasic errors. Remote memory intact, with prompting. No neglect. CRANIAL NERVES: Pupils equal and reactive to light bilat. Visual stephens full. EOMI. Face symmetric. Palate elevates equally bilaterally, tongue midline. MOTOR: Strength: RUE: 5/5, RLE: 5/5, LUE: 5/5, LLE: 5/5. Tone is normal, bulk is symmetric. BUE resting and action tremor, about equal with both pill rolling and flapping qualities. SENSORY: Intact to light touch throughout CEREBELLUM: Finger to Nose testing shows tremor but no ataxia. 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 He was being tested for possible DBS therapy for his left sided tremor (but the evaluation appears to be on hold). He continues without any seizures since our last visit. He denies any side effects on the medication. He has not had any seizures since our last visit. He has continued to have some tremor related dysfunction that has progressed some (He is still able to feed himself and walk with no falls, but cannot walk on uneven surfaces). . He has also some worsening memory problems. PLAN: - 20 minutes of daily aerobic exercise - Continue Lamictal at 200 mg PO BID. (level 6.4 03/20/23) - Continue Vimpat to 100 mg PO BID. (level 5.6 03/20/23) - Continue Topamax 100mg Qam. (level 3.4 03/20/23) - Continue Prednisone 2.5 mg PO Qdaily. - Continue Celexa 20mg QAM for depression. - 6 months Care Coordination The majority of the visit was spent counseling and/or coordinating care for the patient. [id number] time was 30 minutes Williams Sexton MD Beeper Number: [id number] Date of Service: September 25, 2023 documented in this encounter [facility] 07-25-2023 History of Presen t illness Narrative POPULATION HEALTH NAVIGATION OUTREACH Action/FYI spoke to patient's declined pcp Reason for Outreach Care Gap/HCC or Scheduling Wellness Visits Care Gaps due: Establish Care Appointment Patient Contacted: Spoke to patient/parent/or legal guardian Patient identified by name and : Yes Care Gap/HCC/Scheduling Wellness actions taken: Patient declined: Not interested in scheduling Navigation Signature: Alpa Vallejo MA July 25, 2023 11:04 AM documented in this encounter [facility] 07-13-2023 History of Presen t illness Narrative Images from the original note were not included. [facility] Follow up/ Established patient visit Date of last visit : 03/12/23 The following Impression/Plan was copied and pasted from the patient's last [facility] visit on 03/12/23: Impression: G47.33 RAIZA (obstructive sleep apnea) (primary encounter diagnosis) I10 Hypertension, unspecified type 73 yo male here for follow up after starting new AutoCPAP device with use and benefit noted. Reviewed downloaded data from Airsense 11 and AHI 37.6. Where as, it was 2.4 on Resmed 10 device at his last follow up. Due to the discrepancy noted, call placed to [facility] at [facility] to discuss case. He will switch back to Resmed 10 device as a loner and reassess AHI. If WNL, will swap devices per 2 year warranty protocol. He will update me accordingly. Plan: - Continue CPAP at 11 cmH2O. - Loner device as above - spoke to Brain at [facility] - Current device is under 2 year warranty - Remember to clean your mask and equipment regularly, as directed. - You should be eligible for new supplies approximately every 3-6 months, depending on your insurance coverage. Contact your Durable Medical Equipment (DME) company for new supplies as needed. Follow up in 3 month(s). Glory Kirk APRN.PARTITION ASSEMBLER Here for follow up for RAIZA on PAP therapy, accompanied by his A biPAP titration was recommended in 03/2023 since residual AHI was in the 30s, no titration study was done His auto machine is set to CPAP 11 which is the pressure recommended in 2009 He definitely benefits from PAP therapy SLEEP APNEA Sleep apnea type : RAIZA, Most Recent Apnea-Hypopnea Index (AHI): 49 on HSAT, in-lab study was recommended to assess central events Treatment : PAP therapy DME: [facility] [employer] PAP History: Uses AutoPAP for 9 hours per night, 7 nights per week. Current PAP settin cm H2O. Difficulties with CPAP: None Reviewed objective PAP compliance data: Mask type: full face mask Mask issues: none There is a perceived benefit by the patient: no morning headaches SLEEP HYGIENE QUESTIONS: Bedtime : 11 pm Wake up Time : 9 am Time it takes to fall sleep : quick Number of times patient wakes up per night : 1-2 Reason (s) why patient wakes up during the night : urination Estimated total sleep time ( in a 24 hour period of time) : 12 Naps : daily, in his chair (uses his old PAP there) PATIENT-ENTERED QUESTIONNAIRE SLEEP SCORES 04/26/2017 Insomnia Severity Index Score 8 04/26/2017 05/23/2018 03/11/2019 PHQ-9 Score 6 11 5 04/26/2017 05/23/2018 03/11/2019 PROMIS Global Health - (T-Scores - the mean of general population = 50. Five points is a clinically meaningful difference.) Physical T-Score 39.8 42.3 47.7 Mental T-Score 43.5 33.8 43.5 ALLERGIES Allergen Reactions Dust Mold Intolerance Primidone Unknown Trees Intolerance CURRENT MEDICATIONS: lacosamide (VIMPAT) 100 mg tab Take 1 tablet by mouth two times a day for 180 days. lamoTRIgine (LAMICTAL) 200 mg tablet Take 1 tablet by mouth two times a day. topiramate (TOPAMAX) 100 mg tablet Take 1 tablet by mouth once daily. predniSONE (DELTASONE) 2.5 mg tablet Take 1 tablet by mouth once daily. citalopram (CELEXA) 20 mg tablet Take 1 tablet by mouth once daily. Zinc Gluconate 50 mg tablet Take 50 mg by mouth once daily. During winter months Ascorbic Acid (VITAMIN C) 1,000 mg tablet Take 1,000 mg by mouth once daily. Takes during winter Magnesium Oxide 420 mg tab Take 1 tablet by mouth once daily. Takes during the winter mecobalamin, vitamin B12, 5,000 mcg chew Take 1 tablet by mouth once daily. Takes during the winter albuterol sulfate (PROAIR RESPICLICK) 90 mcg/actuation aepb Inhale 2 Puffs as instructed every 4 hours as needed. multivit-min/FA/lycopen/lutein (CENTRUM SILVER MEN ORAL) Take by mouth once daily. MYRBETRIQ 50 mg Tb24 Take 50 mg by mouth once daily. CPAP/BIPAP/OTHER AutoCPAP 11-20 cmH2O DME [facility] PHYSICAL EXAMINATION: Vital Signs: BP 185/87 Pulse (!) 54 Resp 18 SpO2 100% PHYSICAL EXAM: General appearance: pleasant, NAD Mental status: alert and oriented, able to provide own history Constitutional: obese Skin: No visible rashes on exposed skin Neuro: +tremor IMPRESSION: Raiza on cpap (primary encounter diagnosis) Terell Beltran is a 73 year old male with severe RAIZA and central events on HSAT and on download. PMH of limbic system epilepsy, limbic system encephalitis, action tremor, HTN, HLD, OA, depression, paraneoplastic syndrome. This delightful couple report that he definitely benefits from PAP therapy even with his residual AHI being high. He is compliant with PAP therapy. We will change his pressure setting. PLAN: - Continue PAP, change from CPAP 11 to autoCPAP 11-20 cmH2O, we'll check a download in a month. They will let us know if he has any issue tolerating higher pressure. - Remember to clean your mask and equipment regularly, as directed. - You should be eligible for new supplies approximately every 3-6 months, depending on your insurance coverage. Contact your Durable Medical Equipment (DME) company for new supplies as needed. If residual AHI is high then he will need in lab titration study for bipap. If he has to go to the lab then his would need to go with him due to his short term memory issues. But if residual AHI is normal then follow up one yr. Analy Brown APRN.DARSHAN documented in this encounter [facility] 07-06-2023 Telephone encounter Note Images from the original note were not included. [facility] 07-06-2023 Miscellaneous Notes Images from the original note were not included. documented in this encounter [facility] 06-01-2023 Miscellaneous Notes Faxed office note dated 03/12/2023 to [facility] Supplies attention Patrizia at [phone]. documented in this encounter [facility] 05-28-2023 History of Presen t illness Narrative POPULATION HEALTH NAVIGATION OUTREACH Action/FYI Spoke to Salma (spouse) Declined PCP Reason for Outreach Care Gap/HCC or Scheduling Wellness Visits Care Gaps due: Establish Care Appointment Patient Contacted: Spoke to patient/parent/or legal guardian Patient identified by name and : Yes Care Gap/HCC/Scheduling Wellness actions taken: Patient declined: Not interested in scheduling Navigation Signature: Jessica Lawrence MA May 28, 2023 3:36 PM documented in this encounter [facility] 04-18-2023 Miscellaneous Notes Patient advise of need for PAP titration study to assess for Bipap machine due to AHI being 33.1 on CPAP at 11. Scheduling instructions given as well Received data after machine swap. 03/19/2023 to 04/01/2023 Compliance download: 93% >=4 hours Average use: 10 hours 21 minutes Leaks 14.5, residual AHI 33.1 Based on this information, AHI at 33.1, would recommend a PAP titration study to assess the need for BiPAP. Order placed for PAP titration, can patient be called with this information? 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 He was being tested for possible DBS therapy for his left sided tremor (but the evaluation appears to be on hold). He continues without any seizures since our last visit. He denies any side effects on the medication. His tremors are about the same. He is able to feed himself and he is able to walk without problems (no falls). He has had some issues with tremors being detected on his CPAP, but it continues to function well. He is also being considered for botox for spastic bladder. Interval History: Seizure medication: LCM 100mg BID LTG 200mg BID TPM 100mg daily Side effects: sleeps a lot Seizures: There have been no seizures. His last seizure was >10 years ago. Other health: He continues to take Prednisone 2.5 mg PO Qdaily and Celexa 20mg QAM for depression. His mood has been good on Celexa. He had been taking aspirin daily, but stopped 1 year ago. No new medications, other than an temporary antibiotic last month for a cold (seen in urgent care). Component Latest Ref Rng & Units 03/29/2017 03/19/2018 Lacosamide 2.2 - 19.8 ug/mL 4.7 6.0 Desmethyllacosamide <2.6 ug/mL 0.8 0.8 Lamotrigine 1 - 13 ug/mL 4.5 5.3 Topiramate 5.0 - 20.0 ug/mL 7.3 8.4 KAREN 02/16/2022: He has not had any seizures since our last visit. He denies any side effects on the medication. His tremors are slowly getting worse (He can feed himself, but has trouble with small foods like pees). He has not fallen but has come close several times. He had an ambulatory EEG done in February 2016 that was normal. Last autoimmune panel was negative 01/2016. He had left hip surgery on June 21, 2017. Patient reports no left him pain anymore. Tremor (Lt hand>Rt hand) is worse since the last visit. Continues to follow Dr. Galloway who recommends brain stimulation however patient is still not interested. Continues to have BONE when he is tired. If he uses CPAP, no headaches. is concerned about intermediate use of Prednisone for his bone health. Wants to know if it should be continued. Continues to take Celexa for depression. Otherwise he is stable overall. CURRENT AEDs: TPM 100 QAM LCM 100 BID LTG 200 BID CURRENT SEIZURE DESCRIPTION AND FREQUENCY: Seizure Type A: Autonomic Seizure vs Paroxysmal Events. He will feel light headed, then have tremors in both arms. He will have a far away look and a grimace on his face like he is going to cry. He may not respond appropriately and he may say I am okay during his events. He appears confused after the event is over. He is currently not having any episodes. PREVIOUS EVALUATIONS: EEG ([facility], 03/18/09 - 03/22/09): Interictal: None Ictal: Clinical seizure: Autonomic Seizure (28 recorded; 3-21P, 23-32P) EEG seizure: Regional, vertex Clinical seizure: Autonomic Aura (2 recorded; 1A, 2A) EEG seizure: No EEG change Clinical seizure: Paroxysmal Event (2 recorded; 5E, 22E) EEG seizure: No EEG change EEG: ([facility],02/11/09): Normal (Awake, Drowsy, Anterior temporal electrodes) 1 EEG: No EEG Change Seizure: Paroxysmal Event This EEG is within normal limits. The patient had one typical event (reporting he had an event, with observed twitching in lower lip) lasting less than 30 seconds, with no definite EEG correlate. No epileptiform abnormalities were recorded. Ambulatory EEG (03/20/16) Classification Normal (Awake, Sleep, 10-20 Scalp Electrodes) Impression This 23 hours 40 minutes ambulatory EEG is normal. Epileptiform activity and seizure patterns were not seen. The patient did not have any documented events during this period Video EEG :([facility], 02/12/09): Normal (Awake, Sleep) 1 EEG: No EEG Change Seizure: Paroxysmal Event This multi-hour EEG done from 8:14AM on 02/11/09 to 6:23AM on 02/12/09 is within normal limits. Multiple self-reported spells were captured with no apparent EEG change. No epileptiform activity or EEg seizures were seen during this study. Video EEG :([facility], 02/13/09): Normal (Awake, Sleep) This EEG is within normal limits. No epileptiform discharges or electrographic seizures were noted. MRI: ([facility],02/11/09): 1. NO ACUTE INTRACRANIAL PROCESS 2. NO SUSPICIOUS ENHANCEMENT OR MASS OR SIGNAL ABNORMALITY TO SUGGEST METASTATIC DISEASE 3. METALLIC ARTIFACT FROM RIGHT SUPRA-ORBITAL REGION (? RIGHT FRONTAL SINUS), OF UNCERTAIN ETIOLOGY. CLINICAL CORRELATION RECOMMENDED. PAST MEDICAL HISTORY: 1. Sinus disease, s/p multiple nasal polypectomies 2. HTN 3. Tremors 4. A mole removed from his back was read as malignant melanoma 5. 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 Gall bladder removal EPILEPSY RISK FACTORS: 1. History of head trauma (No) 2. History of febrile seizures (No) 3. History of meningitis/encephalitis (No) 4. Family history of epilepsy (No) 5. Known HELP DESK REPRESENTATIVE Tumors/Structural Lesion (No) 6. HELP DESK REPRESENTATIVE Vascular disease (No) 7. Developmental Delay (No) FAMILY HISTORY: Father had lung cancer (heavy smoker), Heart disease, Sister had breast cancer. Another sister had a pituitary tumor, Dementia, Diabetes. SOCIAL HISTORY: Terell Beltran lives in [place], [place] with . 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 G47.33 RAIZA Zinc Gluconate 50 mg tablet Take 50 mg by mouth once daily. During winter months Ascorbic Acid (VITAMIN C) 1,000 mg tablet Take 1,000 mg by mouth once daily. Takes during winter Magnesium Oxide 420 mg tab Take 1 tablet by mouth once daily. Takes during the winter mecobalamin, vitamin B12, 5,000 mcg chew Take 1 tablet by mouth once daily. Takes during the winter months lacosamide (VIMPAT) 100 mg tab Take 1 tablet by mouth two times a day for 90 days. predniSONE (DELTASONE) 2.5 mg tablet Take 1 tablet by mouth once daily. lamoTRIgine (LAMICTAL) 200 mg tablet Take 1 tablet by mouth twice daily. topiramate (TOPAMAX) 100 mg tablet Take 1 tablet by mouth once daily. citalopram (CELEXA) 20 mg tablet Take 1 tablet by mouth once daily. albuterol sulfate (PROAIR RESPICLICK) 90 mcg/actuation aepb Inhale 2 Puffs as instructed every 4 hours as needed. multivit-min/FA/lycopen/lutein (CENTRUM SILVER MEN ORAL) Take by mouth once daily. MYRBETRIQ 50 mg Tb24 Take 50 mg by mouth once daily. PREVIOUS ANTIEPILEPTIC MEDICATIONS: Lamictal VITALS: 03/22/23 1319 BP: 153/72 BP Site: Left Arm BP Position: Sitting BP Cuff Size: Regular Adult Pulse: 89 Resp: 18 SpO2: 98% Weight: 87.5 kg (193 lb) Height: 165.1 cm (5' 5) PHYSICAL EXAM: General: Average, well developed and appears healthy, in NAD NEUROLOGIC EXAM: MENTAL STATUS: Alert and oriented to person place and time, follows 1 and 2 step commands, speech fluent and without anomia or paraphasic errors. Remote memory intact, with prompting. No neglect. CRANIAL NERVES: Pupils equal and reactive to light bilat. Visual stephens full. EOMI. Face symmetric. Palate elevates equally bilaterally, tongue midline. MOTOR: Strength: RUE: 5/5, RLE: 5/5, LUE: 5/5, LLE: 5/5. Tone is normal, bulk is symmetric. BUE resting and action tremor, about equal with both pill rolling and flapping qualities. SENSORY: Intact to light touch throughout CEREBELLUM: Finger to Nose testing shows tremor but no ataxia. 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 He was being tested for possible DBS therapy for his left sided tremor (but the evaluation appears to be on hold). He continues without any seizures since our last visit. He denies any side effects on the medication. His tremors are about the same. He is able to feed himself and he is able to walk without problems (no falls). He has had some issues with tremors being detected on his CPAP, but it continues to function well. He is also being considered for botox for spastic bladder. PLAN: - Continue Lamictal at 200 mg PO BID. (level 6.4 03/20/23) - Continue Vimpat to 100 mg PO BID. (level 6.0 03/19/18) - Continue Topamax 100mg Qam. (level 3.4 03/20/23) - Continue Prednisone 2.5 mg PO Qdaily. - Continue Celexa 20mg QAM for depression. - 6 months Care Coordination The majority of the visit was spent counseling and/or coordinating care for the patient. Irdj-lo-tftx time was 30 minutes Williams Sexton MD Beeper Number: [id number] Date of Service: March 22, 2023 documented in this encounter [facility] 02-02-2023 Miscellaneous Notes Spoke to pharmacist who confirmed she spoke to and refills will be provided on 02/12/23. Krysta Andre, RN The following approved medication requests have been transmitted electronically. Requested Prescriptions Signed Prescriptions Disp Refills lacosamide (VIMPAT) 100 mg tab 180 tablet 0 Sig: Take 1 tablet by mouth two times a day for 90 days. Authorizing Provider: HANNAH ALMENDAREZ predniSONE (DELTASONE) 2.5 mg tablet 90 tablet 0 Sig: Take 1 tablet by mouth once daily. 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 He was being tested for possible DBS therapy for his left sided tremor (but the evaluation appears to be on hold).He has not had any seizures since our last visit. He denies any side effects on the medication. His tremors are about the same. He is able to feed himself and he is able to walk without problems (no falls) PLAN: - Continue Lamictal at 200 mg PO BID. (level 5.3 03/19/18) - Continue Vimpat to 100 mg Po BID. (level 6.0 03/19/18) - Continue Topamax 100mg Qam. (level 8.4 03/19/18) - Continue Prednisone 2.5 mg PO Qdaily. - Continue Celexa 20mg QAM for depression. - 6 months Williams Sexton MD Date of Service: August 17, 2022 Early refill request routed to JAQU[facility] for review/approval. Krysta Andre RN Medication Concern Person Calling Salma Beltran, Name of medication Vimpat 100 mg Concern with medication Patient's next fill is due February 14. 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 Prednisone needed before patient returns on February 28. Pharmacy is [facility] [phone]. Patient of Dr. Sexton documented in this encounter [facility] 09-27-2022 Miscellaneous Notes Received compliance report from [facility]- 08/24/22 - 09/22/22 Will be given to Glory on 10/01/22 documented in this encounter [facility] 08-31-2022 Miscellaneous Notes Received freshair letter stating pressure was change to 11 cm h2o per your script on 08/23/22 documented in this encounter [facility] 07-07-2022 History of Presen t illness Narrative POPULATION HEALTH NAVIGATION OUTREACH Action/FYI Patient needs to establish care with a PCP. 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
G40.209 - Limbic system epilepsy (HCC) - [id number] Last Billed 02/16/2022
G40.209 - Partial epilepsy with impairment of consciousness (HCC) - [place] [id number] Last Billed 02/16/2022
G40.219 - Partial epilepsy with impairment of consciousness, intractable (HCC) - [place] [id number] Last Billed 02/16/2022
Patient declined scheduling Patient Identified by Name and : YES, via phone Outreach Outcome/Action Spoke to patient / parent / legal guardian: Patient declined Did you use a PCP flex slot to schedule this appointment? N/A Reason for Outreach Attribution: Consult to Primary Care Payer: Payor: MEDICARE / Plan: MEDICARE A AND B / Product Type: Medicare / Care Gap Reviewed:: Annual Wellness visit Controlling Blood Pressure Colorectal Cancer Screening Reminder: Reminder note to check Health Maintenance for items below Health Maintenance items due: COVID-19 VACCINE(1) Never done ANNUAL PCP TEAM CHRONIC DISEASE VISIT Never done HEPATITIS C SCREENING Never done BP CONTROLLED (<130/80) Never done SHINGRIX VACCINE(1 of 2) Never done DTAP,TDAP,TD(1 - Tdap) due on 08/26/2006 COLORECTAL CANCER SCREENING due on 11/08/2010 LIPID SCREEN due on 02/25/2014 PNEUMOCOCCAL: 65+(1 - PCV) Never done DIABETES SCREEN due on 06/22/2020 ADVANCE DIRECTIVE DISCUSSION Never done Navigation Signature: Smiley Grove MA July 07, 2022 10:58 AM documented in this encounter [facility] 06-28-2022 Miscellaneous Notes HST faxed now completed to DME; Nick # [phone]------FAX# [phone] Confirmed and filed. Juliet Bower Ma Results of sleep study are finalized in epic, per plan, to be faxed to [facility] for new set up device. IMPRESSION/PLAN: G47.33 RAIZA (obstructive sleep apnea) (primary encounter diagnosis) I10 Hypertension, unspecified type Terell Beltran is a 72 year old male who presents to re-establish care in sleep medicine for RAIZA on CPAP with nightly use and benefits. His machine is now greater than 5 years old, noisy, and broken beyond repair. He does need an updated HSAT graded at 4% for insurance - orders placed. Once received, will fax to [employer]. Additionally, spouse to re-check BP at home and call my offices for reading. He was stressed coming into today's appointment. He denies any red flag symptoms, and reviewed with pt and spouse when to present for emergency care. - Will start Auto CPAP 8-14 cmH2O with a Full face mask. - I will have a prescription sent to a [employer] company - [employer] - who will be calling you in the next 1-2 weeks or so. Please call them directly or us if you do not hear from them in this time frame. - You should be eligible for new supplies approximately every 3-6 months, depending on your insurance coverage. - If your mask doesn't fit well, call the [employer] company before 30 days are up to get a new mask without an additional charge. - Insurance requires regular usage and periodic office follow ups for PAP therapy, to continue to cover supplies. INSURANCE REQUIREMENTS: - Your insurance requires a [id number]-[id number] follow up visit within a 31-90 day period after starting CPAP. - Your insurance requires compliance with CPAP, which is at least 4 hours per night for 70% of the time. This must be done over a 30 day period and must occur within the initial 31-90 day period after starting CPAP. - Your insurance also requires at least yearly follow ups to continue to pay for CPAP supplies. Follow up in 3 month(s). Glory Kirk APRN.DARSHAN documented in this encounter [facility] 06-20-2022 History of Presen t illness Narrative Sleep Study Check-In Documentation Date: June 20, 2022 Name: Terell Beltran Comments: HST was returned in working order with all sleep questionnaires [facility] [employer]# [id number], date shipped out 06/16/22 Tracking mailout: [phone] [id number] Tracking return: [phone] [id number] June 08, 2022 An order has been received for Home Sleep Apnea Test (HSAT) from [facility] Staff/Project Safety Manager Staff Orders. Visit prep complete - Please refer to the sleep study order (under procedures tab) for protocol details and special instructions. The sleep study is scheduled for 06/20. Insurance: Payor: MEDICARE / Plan: MEDICARE A AND B / Product Type: Medicare / Payer/Plan Subscr Sex Relation Sub. Ins. ID Effective Group Num 1. [place] - [place]* TERELL BELTRAN 1950 Male Self [id number] [birth year][address] [facility] TERELL BELTRAN 1950 Male Self [id number] [birth year] [address] Evelyn Hendrix documented in this encounter [facility] 05-31-2022 Miscellaneous Notes Called patient and spoke with Salma. Salma stated patient was still asleep, they rechecked patient's blood pressure last night and it had gone down, she did not remember what the number was. She said she was going to re-check the blood pressure this morning when Terell woke up. This RN advised patient's to call and schedule a follow up with a first available appointment with his primary care doctor. Also instructed patient's that If patient has chest pain, shortness of breath, blurred vision, or headache occurs, patient needs to be taken to the emergency room. Patient's agreeable to plan. Please advise patient to schedule a follow up with a first available appointment with his primary care doctor. If Chest pain, shortness of breath, blurred vision, or headache occurs, present to emergency room. calling and left message on VM at 4:54 PM on 05/30/2022 that patient's BP was 180/84. Please advise. Juliet Bower Ma documented in this encounter [facility] 05-30-2022 History of Presen t illness Narrative Order for New/replacement PAP device and this OV note (to be on hold until HST completed) faxed to DME; Nick BARKER# [phone]------FAX# [phone] Will send HST once completed in [facility]. Confirmed and filed. Juliet Bower Ma Images from the original note were not included. [facility] New Patient Evaluation PATIENT NAME: Terell Beltran DATE OF SERVICE: May 30, 2022 HPI: Terell Beltran is a 72 year old male who presents to re-establish care in sleep medicine for RAIZA on CPAP with nightly use and benefits. His machine is now greater than 5 years old, noisy, and broken beyond repair. SLEEP APNEA Sleep apnea type : RAIZA, Most Recent Apnea-Hypopnea Index (AHI): 28.3 Treatment : PAP therapy DME: [facility] PAP History: Current PAP settin cm H2O. Difficulties with CPAP: Yes: greater than 5 years old and broken beyond repair Objective PAP compliance data: 02/23/2022 to 05/23/2022 Compliance download: 99% >=4 hours Average use: 10 hours 44 minutes Leaks 25.1, residual AHI 2.4 Mask type: full face mask Mask issues: NA Uses chin strap: No Uses ramp function: Yes Uses humidity: Yes There is a perceived benefit by the patient SLEEP-WAKE SCHEDULE Bedtime: 9 PM to midnight. He does not have a hard time falling asleep. Wake time: 9 AM, without an alarm. Nocturnal wakings: a couple for BRB On weekends, he maintains the same sleep schedule. Average total sleep time (in a 24 hour period): 12 hours. He does take naps. Frequency: daily, Duration: 2-4 hours. WAKE-RELATED DETAILS He does not work. He does have difficulty with memory or concentration. He denies falling asleep or dozing off when driving. He does not drink caffeinated beverages. SLEEP DISORDER SYMPTOMS He does not report having an urge to move the legs in the evening (when resting) that is accompanied or caused by uncomfortable and/or unpleasant sensations in the legs. He has not been told that he has leg kicking during sleep. He has a history of acting out his dreams but no recent occurrence - advised if were to happen in the future, schedule follow up in sleep promptly. SLEEP FUNCTIONAL OUTCOME MEASURES Reviewed and uploaded. 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) 05/13/2020 PAST SURGICAL HISTORY Procedure Laterality Date CHOLECYSTECTOMY Cholecystectomy COLONOSCOPY FLX DX W/COLLJ SPEC WHEN PFRMD 2000 Colonoscopy PAST SURGICAL HISTORY OF nasal polyp surg x 9 PAST SURGICAL HISTORY OF lump on face benign PAST SURGICAL HISTORY OF 2003 removed - mal leslye ACTIVE PROBLEM LIST Essential Hypertension, Benign Abnormal Involuntary Movements(781.0) Hypertrophy of Prostate Without Urinary Obstruction and Other Lower Urinary Tract Symptoms (Luts) Other and Unspecified Hyperlipidemia Acute Gastritis Without Mention of Hemorrhage Limbic System Epilepsy (Hcc) Testicular Mass Infection of Nail Limbic Encephalitis Paraneoplastic Syndrome Lung Mass Partial Epilepsy With Impairment of Consciousness (Hcc) Partial epilepsy with impairment of consciousness, intractable (HCC) Action Tremor RAIZA (obstructive sleep apnea) AHI 28.3 Pain in Left Hip Avascular Necrosis of Bone of Hip, Left (Hcc) Oa (Osteoarthritis) of Hip S/P Hip Replacement, Left Temporal Lobe Epilepsy (Hcc) Recurrent Major Depression in Partial Remission (Hcc) Allergies As of Date: 05/30/2022 Allergen Noted Reaction DUST 09/21/2005 MOLD 09/21/2005 Intolerance PRIMIDONE 06/14/2015 Unknown TREES 09/21/2005 Intolerance Fully Assessed 05/30/2022 CURRENT MEDICATIONS: lacosamide (VIMPAT) 100 mg tab Take 1 tablet by mouth twice daily for 180 days. lamoTRIgine (LAMICTAL) 200 mg tablet Take 1 tablet by mouth twice daily. topiramate (TOPAMAX) 100 mg tablet Take 1 tablet by mouth once daily. predniSONE (DELTASONE) 2.5 mg tablet Take 1 tablet by mouth once daily. citalopram (CELEXA) 20 mg tablet Take 1 tablet by mouth once daily. albuterol sulfate (PROAIR RESPICLICK) 90 mcg/actuation aepb Inhale 2 Puffs as instructed every 4 hours as needed. multivit-min/FA/lycopen/lutein (CENTRUM SILVER MEN ORAL) Take by mouth once daily. aspirin, enteric coated (ASPIRIN, ENTERIC COATED) 81 mg EC tablet Take 1 tablet by mouth twice daily. MYRBETRIQ 50 mg Tb24 Take 50 mg by mouth once daily. oxybutynin ER (DITROPAN XL) 10 mg 24 hr tablet Take 1 tablet by mouth once daily. CPAP/BIPAP/OTHER New set up: Settings 8 - 14 cm H2O, suitable mask per pt preference, chin strap, head gear, humidity, tubing, lifetime supplies. G47.33 RAIZA REVIEW OF SYSTEMS SLEEP RELATED ROS GENERAL: See HPI RESPIRATORY: negative dyspnea CARDIOVASCULAR: negative chest pain : positive nocturia SKIN: negative mask irritation PSYCH: negative depression and suicidal thoughts ENDOCRINE: negative thyroid problems NEURO: positive memory problems All other systems reviewed and are negative. SOCIAL HISTORY Social History Tobacco Use Smoking status: Never Smokeless tobacco: Never Substance Use Topics Alcohol use: No Drug use: No FAMILY HISTORY FAMILY HISTORY Problem Relation Age of Onset Colon Cancer Father Cancer Father lung cancer Coronary Artery Disease Father [place] Coronary Artery Disease Paternal Grandmother Coronary Artery Disease Paternal Grandfather Alzheimer's Disease Mother dementia PHYSICAL EXAMINATION: Vital Signs: BP 168/75 (BP Site: Left Arm, BP Position: Sitting, BP Cuff Size: Regular Adult) Pulse 61 Ht 165.1 cm (5' 5) Wt 95.3 kg (210 lb) SpO2 96% BMI 34.95 kg/m PHYSICAL EXAM: General appearance: NAD, attire appropriate per season Mental status: A & O X3 Speech: Clear & Coherent Constitutional: Overweight Skin: W/D/I on exposed skin Musculoskeletal/ Extremities: Neg BLE edema, sensation intact Neuro: Gait stable, hearing intact to conversation IMPRESSION/PLAN: G47.33 RAIZA (obstructive sleep apnea) (primary encounter diagnosis) I10 Hypertension, unspecified type Terell Beltran is a 72 year old male who presents to re-establish care in sleep medicine for RAIZA on CPAP with nightly use and benefits. His machine is now greater than 5 years old, noisy, and broken beyond repair. He does need an updated HSAT graded at 4% for insurance - orders placed. Once received, will fax to [employer]. Additionally, spouse to re-check BP at home and call my offices for reading. He was stressed coming into today's appointment. He denies any red flag symptoms, and reviewed with pt and spouse when to present for emergency care. - Will start Auto CPAP 8-14 cmH2O with a Full face mask. - I will have a prescription sent to a [employer] company - [employer] - who will be calling you in the next 1-2 weeks or so. Please call them directly or us if you do not hear from them in this time frame. - You should be eligible for new supplies approximately every 3-6 months, depending on your insurance coverage. - If your mask doesn't fit well, call the [employer] company before 30 days are up to get a new mask without an additional charge. - Insurance requires regular usage and periodic office follow ups for PAP therapy, to continue to cover supplies. INSURANCE REQUIREMENTS: - Your insurance requires a [id number] follow up visit within a 31-90 day period after starting CPAP. - Your insurance requires compliance with CPAP, which is at least 4 hours per night for 70% of the time. This must be done over a 30 day period and must occur within the initial 31-90 day period after starting CPAP. - Your insurance also requires at least yearly follow ups to continue to pay for CPAP supplies. Follow up in 3 month(s). Glory Kirk, CHRISSIE.PARTITION ASSEMBLER I spent a total of 40 minutes on the date of the service which included preparing to see the patient, [id number] patient care, completing clinical documentation, obtaining and/or reviewing separately obtained history, performing a medically appropriate examination, counseling and educating the patient/family/caregiver, ordering medications, tests, or procedures, and communicating results to the patient/family/caregiver. documented in this encounter [facility] 05-30-2022 Instructions Glory Kirk APRN.CNP - 05/30/2022 2:14 PM EDT - Any appointments can be scheduled through the central scheduling system for the [facility] at [phone]. - If you are a [facility] patient, call [phone] for questions - Any other locations you have seen me at, please call [phone] opt [phone] for questions. - May use Message My Doc through My Chart for questions. - [facility] website: [email or web address] Safety Tips: 1. Move any breakable items and nightstands away from your bed. 2. If you have any weapons in your home, make sure they are stored safely and securely away from where you sleep. 3. If you have violent episodes, consider sleeping separately from your partner. 4. If you often fall or jump out of your bed, you might try using a sleeping bag on the floor, mat, or a padded bed rail. Lower the bed as much as possible. 5. Keep a clear path to the bathroom, include a dim lit night light. 6. Do not keep rugs in the bedroom/bathroom to avoid a trip hazard. 7. Avoid alcohol use 8. It is important to continue discussion and review safety with your family members, including those in the home, or whom you share a bed with. PLAN: - Will start Auto CPAP 8-14 cmH2O with a Full face mask. - I will have a prescription sent to a [employer] company - [facility] - who will be calling you in the next 1-2 weeks or so. Please call them directly or us if you do not hear from them in this time frame. - You should be eligible for new supplies approximately every 3-6 months, depending on your insurance coverage. - If your mask doesn't fit well, call the [employer] company before 30 days are up to get a new mask without an additional charge. - Insurance requires regular usage and periodic office follow ups for PAP therapy, to continue to cover supplies. INSURANCE REQUIREMENTS: - Your insurance requires a [id number] follow up visit within a 31-90 day period after starting CPAP. - Your insurance requires compliance with CPAP, which is at least 4 hours per night for 70% of the time. This must be done over a 30 day period and must occur within the initial 31-90 day period after starting CPAP. - Your insurance also requires at least yearly follow ups to continue to pay for CPAP supplies. documented in this encounter [facility] 05-30-2022 Nurse Note Patient presents with: New Patient Evaluation: Self referred to re-establish for his RAIZA. He needs a new sleep study due to 3% score for his last one and also need replacement PAP device. documented in this encounter [facility] 03-14-2022 Miscellaneous Notes The following approved medication requests have been transmitted electronically. Requested Prescriptions Signed Prescriptions Disp Refills lacosamide (VIMPAT) 100 mg tab 180 tablet 1 Sig: Take 1 tablet by mouth twice daily for 180 days. Authorizing Provider: ALPA CHAPPELL PA-C Prescription Refill: Requested by: pharmacy Please Fax Caller Contact Number: Pharmacy Name: [facility] Pharmacy Number: [phone] Generic/ brand: 30 or 90 day supply requested: 90 Last appointment: 02/16/22 Next Appointment: 08/17/[address] 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 He was being tested for possible DBS therapy for his left sided tremor (but the evaluation appears to be on hold).He has not had any seizures since our last visit. He denies any side effects on the medication. His tremors are slowly getting worse (He can feed himself, but has trouble with small foods like pees). He has not fallen but has come close several times. He had an ambulatory EEG done in February 2016 that was normal. Last autoimmune panel was negative 01/2016. He had left hip surgery on June 21, 2017. Patient reports no left him pain anymore. Tremor (Lt hand>Rt hand) is worse since the last visit. Continues to follow Dr. Galloway who recommends brain stimulation however patient is still not interested. Continues to have BONE when he is tired. If he uses CPAP, no headaches. 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 Wants to know if it should be continued. Continues to take Celexa for depression. Otherwise he is stable overall. CURRENT AEDs: TPM 100 BID LCM 100 BID LTG 200 BID CURRENT SEIZURE DESCRIPTION AND FREQUENCY: Seizure Type A: Autonomic Seizure vs Paroxysmal Events. He will feel light headed, then have tremors in both arms. He will have a far away look and a grimace on his face like he is going to cry. He may not respond appropriately and he may say I am okay during his events. He appears confused after the event is over. He is currently not having any episodes. PREVIOUS EVALUATIONS: EEG ([facility], 03/18/09 - 03/22/09): Interictal: None Ictal: Clinical seizure: Autonomic Seizure (28 recorded; 3-21P, 23-32P) EEG seizure: Regional, vertex Clinical seizure: Autonomic Aura (2 recorded; 1A, 2A) EEG seizure: No EEG change Clinical seizure: Paroxysmal Event (2 recorded; 5E, 22E) EEG seizure: No EEG change EEG: ([facility],02/11/09): Normal (Awake, Drowsy, Anterior temporal electrodes) 1 EEG: No EEG Change Seizure: Paroxysmal Event This EEG is within normal limits. The patient had one typical event (reporting he had an event, with observed twitching in lower lip) lasting less than 30 seconds, with no definite EEG correlate. No epileptiform abnormalities were recorded. Ambulatory EEG (03/20/16) Classification Normal (Awake, Sleep, 10-20 Scalp Electrodes) Impression This 23 hours 40 minutes ambulatory EEG is normal. Epileptiform activity and seizure patterns were not seen. The patient did not have any documented events during this period Video EEG :([facility], 02/12/09): Normal (Awake, Sleep) 1 EEG: No EEG Change Seizure: Paroxysmal Event This multi-hour EEG done from 8:14AM on 02/11/09 to 6:23AM on 02/12/09 is within normal limits. Multiple self-reported spells were captured with no apparent EEG change. No epileptiform activity or EEg seizures were seen during this study. Video EEG :([facility], 02/13/09): Normal (Awake, Sleep) This EEG is within normal limits. No epileptiform discharges or electrographic seizures were noted. MRI: ([facility],02/11/09): 1. NO ACUTE INTRACRANIAL PROCESS 2. NO SUSPICIOUS ENHANCEMENT OR MASS OR SIGNAL ABNORMALITY TO SUGGEST METASTATIC DISEASE 3. METALLIC ARTIFACT FROM RIGHT SUPRA-ORBITAL REGION (? RIGHT FRONTAL SINUS), OF UNCERTAIN ETIOLOGY. CLINICAL CORRELATION RECOMMENDED. REVIEW OF SYSTEMS: GENERAL:He has lost 10lbs and has little appetite. HEENT:Negative for frequent or significant headaches., No changes in hearing or vision, no nose bleeds or he does have significant sinus problems and surgeries.. NECK:Negative for lumps, goiter, pain and significant neck swelling RESPIRATORY: Negative for cough, wheezing or shortness of breath. CARDIOVASCULAR: Has some tightness of his chest with spells GASTROINTESTINAL: Negative for abdominal discomfort, blood in stools or black stools or change in bowel habits MUSCULOSKELETAL: He did have some occasional joint pains at night NEUROLOGIC:See HPI SKIN:Had a mole removed that was read as malignant melanoma PSYCHIATRIC: Has stress at home, but denies any depression HEMATOLOGIC/LYMPHATIC/IMMUNOLOGI C:Negative for prolonged bleeding, bruising easily or swollen nodes. ENDOCRINE: Negative for cold or heat intolerance, polyuria, polydipsia and goiter. PAST MEDICAL HISTORY: 1. Sinus disease, s/p multiple nasal polypectomies 2. HTN 3. Tremors 4. A mole removed from his back was read as malignant melanoma 5. 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 Gall bladder removal EPILEPSY RISK FACTORS: 1. History of head trauma (No) 2. History of febrile seizures (No) 3. History of meningitis/encephalitis (No) 4. Family history of epilepsy (No) 5. Known HELP DESK REPRESENTATIVE Tumors/Structural Lesion (No) 6. HELP DESK REPRESENTATIVE Vascular disease (No) 7. Developmental Delay (No) FAMILY HISTORY: Father had lung cancer (heavy smoker), Heart disease, Sister had breast cancer. Another sister had a pituitary tumor, Dementia, Diabetes. SOCIAL HISTORY: Terell Beltran lives in [place], [place] with . 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 lacosamide (VIMPAT) 100 mg tab Take 1 tablet by mouth twice daily for 180 days. topiramate (TOPAMAX) 100 mg tablet Take 1 tablet by mouth once daily. predniSONE (DELTASONE) 2.5 mg tablet Take 1 tablet by mouth once daily. citalopram (CELEXA) 20 mg tablet Take 1 tablet by mouth once daily. CPAP AutoPAP 11 cmH2O, mask (pt pref), chin strap, heated tubing & humidity, filters. Lifetime supplies. RAIZA: G47.33. Please fax 30 day download to [phone] (DME change please provide supplies) CPAP Set to fixed pressure CPAP 11 cmH2O. Dx: 327.23 (Patient not taking: Reported on 07/14/2021 ) albuterol sulfate (PROAIR RESPICLICK) 90 mcg/actuation aepb Inhale 2 Puffs as instructed every 4 hours as needed. multivit-min/FA/lycopen/lutein (CENTRUM SILVER MEN ORAL) Take by mouth once daily. ferrous sulfate 325 mg (65 mg iron) tablet Take 1 tablet by mouth twice daily with meals. (Patient not taking: Reported on 03/19/2018 ) docusate sodium (COLACE) 100 mg capsule Take 1 capsule by mouth twice daily. (Patient not taking: Reported on 03/19/2018 ) aspirin, enteric coated (ASPIRIN, ENTERIC COATED) 81 mg EC tablet Take 1 tablet by mouth twice daily. ascorbic acid, vitamin C, (VITAMIN C) 500 mg tablet Take 1 tablet by mouth twice daily with meals. (Patient not taking: Reported on 10/03/2018 ) Demarco, Zingiber officinalis, 250 mg cap Take 1 capsule by mouth once daily. TURMERIC (CURCUMIN MISC) Take 2 tablets by mouth once daily. 2 tab DA to equal 500 mg MYRBETRIQ 50 mg Tb24 Take 50 mg by mouth once daily. oxybutynin ER (DITROPAN XL) 10 mg 24 hr tablet Take 1 tablet by mouth once daily. Mprtnarkowawi-Cqdvxjnp-Pfpjdj (CENTRUM SILVER) Tab Take 1 tablet by mouth once daily. PREVIOUS ANTIEPILEPTIC MEDICATIONS: Lamictal VITALS: There were no vitals filed for this visit. PHYSICAL EXAM: General: Average, well developed and appears healthy, in NAD HEENT: oral pharnyx is clear, No facial dysmorphic features. Lungs: Clear to ascultation bilaterally CV: Regular rate and rhythm Abd: Soft non-tender, non-distended, positive bowel sounds Ext: no edema NEUROLOGIC EXAM: MENTAL STATUS: Alert and oriented to person place and time, follows 1 and 2 step commands, speech fluent and without anomia or paraphasic errors. Terell Beltran is able to name objects and read sentences. Remote memory intact, with prompting. No neglect. Affect tearful at times. CRANIAL NERVES: Pupils 3mm, equal and reactive to light bilat. Visual stephens full. EOMI. Face symmetric. Palate elevates equally bilaterally, tongue midline. MOTOR: Strength: RUE: 5/5, RLE: 5/5, LUE: 5/5, LLE: at least 4/5 but limited exam due to pain. Tone is normal, bulk is symmetric. BUE resting and action tremor, right > left, with both pill rolling and flapping qualities. SENSORY: Intact to light touch throughout REFLEXES: 1+ throughout. CEREBELLUM: Finger to Nose testing shows tremor but no ataxia. Gait examination is notable for antalgic gait. 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 He was being tested for possible DBS therapy for his left sided tremor (but the evaluation appears to be on hold).He has not had any seizures since our last visit. He denies any side effects on the medication. His tremors are slowly getting worse (He can feed himself, but has trouble with small foods like pees). He has not fallen but has come close several times. PLAN: - Continue Lamictal at 200 mg PO BID - Continue Vimpat to 100 mg Po BID - Continue Topamax 100mg Qam - Continue Prednisone 2.5 mg PO Qdaily - Continue Celexa 20mg QAM for depression - Natural anti-inflammatory alternative to tylenol (tumeric, black pepper, demarco) were discussed - Risks, benefits and complications of Lacosamide, Prednisone, celexa and Lamictal discussed with Terell Beltran - I spent 30 minutes during this encounter, with greater than 50% of the time counseling Terell Beltran on the possible etiologies of his paraneoplastic condition, the diagnostic tests used to evaluate for limbic encephalitis and the risks and benefits of anti-epileptic medicaitons, prednisone, and the importance of compliance with AEDs. - Return to Clinic: 1 year Williams Sexton MD February 16, 2022 documented in this encounter [facility] 02-14-2022 Miscellaneous Notes The following approved medication requests have been transmitted electronically. Requested Prescriptions Signed Prescriptions Disp Refills lamoTRIgine (LAMICTAL) 200 mg tablet 60 tablet 2 Sig: Take 1 tablet by mouth twice daily. Authorizing Provider: HANNAH ALMENDAREZ APRN.CNP Prescription Refill: Requested by: pharmacy Please E-Scribe Caller Contact Number: fax Pharmacy Name: [facility] Pharmacy Number: [id number] Generic/ brand: Generic 30 or 90 day supply requested: 30 Last appointment: 03/03/21 Next Appointment: 02/16/[address] Sexton documented in this encounter [facility] 09-06-2021 Miscellaneous Notes Patient's request for medication is as follows: Signed Prescriptions Disp Refills lacosamide (VIMPAT) 100 mg tab 60 tablet 5 Sig: Take 1 tablet by mouth twice daily for 180 days. DERIC Class: C-V KARON: No Authorizing Provider: DARVIN DALLAS Approved the above prescription and sent electronically [facility] pharmacy in [place], [place]. Zoltan [id number]. OARRS checked and approved.. Darvin Dallas APRN.PARTITION ASSEMBLER Prescription Refill: Requested by: patient Please E-Scribe Caller Contact Number: - [phone] Pharmacy Name: [facility] Pharmacy Number: [id number] Generic/ brand: Generic 30 or 90 day supply requested: 30 Last appointment: 03/03/21 Next Appointment: n/a Patient of Dr. Sexton documented in this encounter [facility] 07-14-2021 History of Presen t illness Narrative This note was created using Insideriter. Subjective Terell Beltran is a 71 year old male. 70 year old male with PMH of Seizures, encephalitis, tremors, and HTN presents with complaints of cough Onset three weeks States its worse at night Denies pain, fever, rash or lesions Increase SOB with exertion Utilized Robitussin and mucinex with little relief The history is provided by the patient and a relative (). Cough This is a new problem. The current episode started more than 1 week ago. The problem occurs constantly. The problem has not changed since onset.The cough is productive of sputum (yellow). There has been no fever. Associated symptoms include headaches (in the AM), rhinorrhea and shortness of breath (on exertion). Pertinent negatives include no chest pain, no chills, no sweats, no ear congestion, no ear pain, no sore throat, no wheezing and no eye redness. He has tried cough syrup for the symptoms. The treatment provided no relief. He is not a smoker. His past medical history does not include bronchitis, pneumonia, bronchiectasis, COPD, emphysema or asthma. Nasal Congestion Associated symptoms include congestion, coughing, headaches (in the AM), shortness of breath (on exertion), sinus pressure and sneezing. Pertinent negatives include no chills, ear pain, neck pain or sore throat. 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 lacosamide (VIMPAT) 100 mg tab Take 1 tablet by mouth twice daily for 180 days. topiramate (TOPAMAX) 100 mg tablet Take 1 tablet by mouth once daily. predniSONE (DELTASONE) 2.5 mg tablet Take 1 tablet by mouth once daily. citalopram (CELEXA) 20 mg tablet Take 1 tablet by mouth once daily. albuterol sulfate (PROAIR RESPICLICK) 90 mcg/actuation aepb Inhale 2 Puffs as instructed every 4 hours as needed. multivit-min/FA/lycopen/lutein (CENTRUM SILVER MEN ORAL) Take by mouth once daily. aspirin, enteric coated (ASPIRIN, ENTERIC COATED) 81 mg EC tablet Take 1 tablet by mouth twice daily. Demarco, Zingiber officinalis, 250 mg cap Take 1 capsule by mouth once daily. TURMERIC (CURCUMIN MISC) Take 2 tablets by mouth once daily. 2 tab DA to equal 500 mg MYRBETRIQ 50 mg Tb24 Take 50 mg by mouth once daily. oxybutynin ER (DITROPAN XL) 10 mg 24 hr tablet Take 1 tablet by mouth once daily. amoxicillin-clavulanic acid (AUGMENTIN) 875-125 mg per tablet Take 1 tablet by mouth twice daily for 10 days. benzonatate (TESSALON PERLE) 100 mg capsule Take 2 capsules by mouth three times daily as needed for up to 10 days. CPAP AutoPAP 11 cmH2O, mask (pt pref), chin strap, heated tubing & humidity, filters. Lifetime supplies. RAIZA: G47.33. Please fax day download to [phone](DME change please provide supplies) CPAP Set to fixed pressure CPAP 11 cmH2O. Dx: 327.23 ferrous sulfate 325 mg (65 mg iron) tablet Take 1 tablet by mouth twice daily with meals. docusate sodium (COLACE) 100 mg capsule Take 1 capsule by mouth twice daily. ascorbic acid, vitamin C, (VITAMIN C) 500 mg tablet Take 1 tablet by mouth twice daily with meals. Cgjujjnkrognk-Ydaxlkge-Hmdxzq (CENTRUM SILVER) Tab Take 1 tablet by mouth once daily. FAMILY HISTORY Problem Relation Age of Onset Colon Cancer Father Cancer Father lung cancer Coronary Artery Disease Father [place] Coronary Artery Disease Paternal Grandmother Coronary Artery Disease Paternal Grandfather Alzheimer's Disease Mother dementia Social History Tobacco Use Smoking status: Never Smoker Smokeless tobacco: Never Used Substance Use Topics Alcohol use: No Drug use: No Review of Systems Constitutional: Negative for activity change, appetite change, chills and fever. HENT: Positive for congestion, rhinorrhea, sinus pressure, sinus pain and sneezing. Negative for ear discharge, ear pain, facial swelling, sore throat, trouble swallowing and voice change. Eyes: Negative for pain, discharge, redness and itching. Respiratory: Positive for cough and shortness of breath (on exertion). Negative for chest tightness and wheezing. Cardiovascular: Negative for chest pain. Gastrointestinal: Negative for abdominal distention, diarrhea, nausea and vomiting. Genitourinary: Negative for difficulty urinating. Musculoskeletal: Negative for back pain, neck pain and neck stiffness. Skin: Negative for color change, pallor, rash and wound. Allergic/Immunologic: Negative for environmental allergies, food allergies and immunocompromised state. Neurological: Positive for tremors and headaches (in the AM). Negative for dizziness, facial asymmetry, light-headedness and numbness. Psychiatric/Behavioral: Negative for agitation, behavioral problems and confusion. Objective BP 170/90 Pulse 66 Temp 37.1 C (98.8 F) Resp 21 Wt 88.4 kg (194 lb 12.8 oz) SpO2 97% BMI 27.95 kg/m Physical Exam Vitals and nursing note reviewed. Exam conducted with a steel rule inspector present. Constitutional: Appearance: Normal appearance. He is normal weight. HENT: Head: Normocephalic. Right Ear: There is impacted cerumen. Left Ear: There is impacted cerumen. Nose: Congestion and rhinorrhea present. Comments: Sinus pressure Mouth/Throat: Mouth: Mucous membranes are dry. Pharynx: No oropharyngeal exudate or posterior oropharyngeal erythema. Eyes: General: No scleral icterus. Right eye: No discharge. Left eye: No discharge. Pupils: Pupils are equal, round, and reactive to light. Cardiovascular: Rate and Rhythm: Normal rate and regular rhythm. Pulses: Normal pulses. Heart sounds: Normal heart sounds. No murmur heard. No friction rub. No gallop. Pulmonary: Effort: Pulmonary effort is normal. No respiratory distress. Breath sounds: Normal breath sounds. No stridor. No wheezing or rhonchi. Chest: Chest wall: No tenderness. Abdominal: General: Bowel sounds are normal. There is no distension. Palpations: There is no mass. Musculoskeletal: General: No swelling or tenderness. Cervical back: No rigidity or tenderness. Skin: General: Skin is warm and dry. Capillary Refill: Capillary refill takes less than 2 seconds. Coloration: Skin is not pale. Findings: No erythema, lesion or rash. Neurological: General: No focal deficit present. Mental Status: He is alert and oriented to person, place, and time. Mental status is at baseline. Gait: Gait normal. Comments: Tremors normal per pts basline Psychiatric: Mood and Affect: Mood normal. Behavior: Behavior normal. ASSESSMENT/PLAN: 1. Acute sinusitis, recurrence not specified, unspecified location - ICD9: 461.9, ICD10: J01.90 - Will begin treatment with Augmentin 875 mg PO BID for 10 days - Supportive care with plenty of fluids, rest, and analgesia prn. - AMOXICILLIN 875 MG-POTASSIUM CLAVULANATE 125 MG TABLET - Tessalon perles for cough. - Follow-up with your PCP in 3-5 days if symptoms have not improved or sooner if symptoms worsen - Discussed red flags and need for immediate medical evaluation if any occur. - Discussed supportive care treatment with fluids, rest and analgesia. - Discussed expected course of illness Linda Bernal TEACHING PROVIDER (Physician/PA/TYPESETTER PERFORATOR OPERATOR) NOTE OF PERSONAL INVOLVEMENT IN CARE: I have personally seen and examined the patient and performed the medical decision-making components. I have reviewed the Advanced Practice Registered Nurse (TYPESETTER PERFORATOR OPERATOR) Student's documentation and verified the findings in the note as written. Any additions or changes are noted in bold/italics. Signature: Jessica Vergara Date: 07/14/2021 Time: 5:27 PM documented in this encounter [facility] 07-14-2021 Instructions Jessica Vergara APRN.DARSHAN - 07/14/2021 5:01 PM EDT Images from the original note were not included. ASSESSMENT/PLAN: 1. Acute sinusitis, recurrence not specified, unspecified location - ICD9: 461.9, ICD10: J01.90 - Will begin treatment with Augmentin 875 mg PO BID for 10 days - Supportive care with plenty of fluids, rest, and analgesia prn. - AMOXICILLIN 875 MG-POTASSIUM CLAVULANATE 125 MG TABLET - Tessalon perles for cough. - Follow-up with your PCP in 3-5 days if symptoms have not improved or sooner if symptoms worsen - Discussed red flags and need for immediate medical evaluation if any occur. - Discussed supportive care treatment with fluids, rest and analgesia. - Discussed expected course of illness Jessica Vergara APRN.PARTITION ASSEMBLER Adult Sinusitis Patient Education What is Sinusitis? Sinusitis [fzma-zvn-ehso-tis] is inflammation of the sinuses or swelling of the lining of the sinus cavity or nose. During an infection the sinuses become blocked with fluid causing swelling of the lining of the sinuses. Symptoms: (viral and bacterial infections) Stuffy nose Runny nose Postnasal drip Fever Toothache Headache Tiredness Cough Sore throat Face and head pressure and or pain Common causes: 98% of sinus infections are viral caused by viruses. Risk Factors of Sinusitis Include: Allergies, air pollution, indoor humidity and outdoor temperature changes, andstructural changes in the nose may contribute to sinus pain, pressure and congestion. When to get help? Temperature greater than 100.4 F Symptoms lasting more than 10 days or worsening symptoms greater than 7-10 days. If you do not improve or worsen after a course of antibiotics, you should be re-examined. Diagnosis and Treatment: Your healthcare provider will ask a number of questions about your symptoms and how long they have occurred. If symptoms of sinusitis persist greater than 10 days, it is possible you have a bacterial sinus infection and an antibiotic is prescribed. If it is viral, antibiotics will not help. You may be instructed to take vdfn-dpi-uwgavre medications for symptoms. including fever reducers acetaminophen or ibuprofen, nasal saline spray, cough and cold preparations and decongestants as prescribed by the physician, nurse practitioner or physician ict sales assistant. Self-Care and Prevention: Rest Fluids for hydration Good hand washing Humidifier Avoid smoking and exposure to second hand smoke Avoid sick contacts documented in this encounter [facility] 06-09-2021 History of Presen t illness Narrative POPULATION HEALTH NAVIGATION OUTREACH Action/FYI I spoke with patient's and she will make appointment with a pcp when he is ready, Patient states he sees Dr Ramos Pt identified by name and : YES, via phone Outreach Outcome/Action Spoke to patient or caregiver: Patient declined Reason for Outreach Attribution: Provider Off-boarding Payer: Payor: MEDICARE / Plan: MEDICARE A AND B / Product Type: Medicare / Care Gap Reviewed:: Annual Wellness visit Controlling Blood Pressure Colorectal Cancer Screening Reminder: Reminder note to check Health Maintenance for items below Health Maintenance items due: COVID-19 VACCINE(1) Never done ANNUAL PCP TEAM CHRONIC DISEASE VISIT Never done HEPATITIS C SCREENING Never done BP CONTROLLED (<130/80) Never done SHINGRIX VACCINE(1 of 2) Never done DTAP,TDAP,TD(1 - Tdap) due on 08/26/2006 COLORECTAL CANCER SCREENING due on 11/08/2010 LIPID SCREEN due on 02/25/2014 PNEUMOVAX AGE 65 AND OVER WITH 5YR LOOKBACK(1) Never done DIABETES SCREEN due on 06/22/2020 ADVANCE DIRECTIVE DISCUSSION Never done Message Sent to Practice: No Navigation Signature: Lyric Darden Population Health Navigator June 09, 2021 10:34 AM Electronically signed by Lyric Darden [facility] Health Navigator at 06/09/2021 10:35 AM EDTdocumented in this encounter [facility] Diagnosis Acute sinusitis, recurrence not specified, unspecified location- [facility] Diagnosis Partial epilepsy with impairment of consciousness (HCC) Localization-related (focal) (partial) epilepsy and epileptic syndromes with complex partial seizures, without mention of intractable epilepsy [facility] Diagnosis Partial epilepsy with impairment of consciousness (HCC) Localization-related (focal) (partial) epilepsy and epileptic syndromes with complex partial seizures, without mention of intractable epilepsy [facility] Diagnosis Partial epilepsy with impairment of consciousness (HCC)- Primary Localization-related (focal) (partial) epilepsy and epileptic syndromes with complex partial seizures, without mention of intractable epilepsy Recurrent major depression in partial remission (HCC) Major depressive disorder, recurrent episode, in partial or unspecified remission Action tremor Essential and other specified forms of tremor [facility] Diagnosis RAIZA (obstructive sleep apnea)- Primary Obstructive sleep apnea (adult) (pediatric) Hypertension, unspecified type [facility] Diagnosis Partial epilepsy with impairment of consciousness (HCC)- Primary Localization-related (focal) (partial) epilepsy and epileptic syndromes with complex partial seizures, without mention of intractable epilepsy Recurrent major depression in partial remission (HCC) Major depressive disorder, recurrent episode, in partial or unspecified remission [facility] Diagnosis RAIZA (obstructive sleep apnea)- Primary Obstructive sleep apnea (adult) (pediatric) CSA (central sleep apnea) Unspecified sleep apnea [facility] Diagnosis RAIZA on CPAP- Primary Obstructive sleep apnea (adult) (pediatric) [facility] Diagnosis Partial epilepsy with impairment of consciousness (HCC) Localization-related (focal) (partial) epilepsy and epileptic syndromes with complex partial seizures, without mention of intractable epilepsy [facility] Diagnosis Partial epilepsy with impairment of consciousness (HCC)- Primary Localization-related (focal) (partial) epilepsy and epileptic syndromes with complex partial seizures, without mention of intractable epilepsy Recurrent major depression in partial remission (HCC) Major depressive disorder, recurrent episode, in partial or unspecified remission [facility] Partial epilepsy with impairment of consciousness (HCC)- Primary Localization-related (focal) (partial) epilepsy and epileptic syndromes with complex partial seizures, without mention of intractable epilepsy Recurrent major depression in partial remission (HCC) Major depressive disorder, recurrent episode, in partial or unspecified remission Obesity, Class I, BMI 30-34.9 Obesity, unspecified documented in this encounter [facility] Influenza-like illness- Primary Influenza with other respiratory manifestations documented [facility] this [facility] Diagnosis Acute cough- Primary Wheezing Sinobronchitis Unspecified sinusitis (chronic) Acute cough [facility] Diagnosis Acute cough [facility] Diagnosis Partial epilepsy with impairment of consciousness (HCC) Localization-related (focal) (partial) epilepsy and epileptic syndromes with complex partial seizures, without mention of intractable epilepsy documented [facility] this encounter [facility] (n[facility]ative)* Diagnostic Procedure Only (Routine) - Authorized Specialty Diagnoses / Procedures Referred By Nicky gilliam [facility] Diagnoses RAIZA (obstructive sleep apnea) Procedures HOME SLEEP APNEA TEST (HSAT) SLEEP STD AIRFLOW HRT RATE&O2 SAT EFFORT UNAGlory Alcazar APRN.CNP [address] [place] [address] [address] Referral ID Status Reason Start Date Expiration Date Visits Requested Visits Authorized [id number] Authorized Auto-Generat ed Referral 05/30/2022 05/30/2023 1 1 [facility] Summary Purpose Family History No Family History Records FoundNo Family History Records FoundNo Family History Records FoundNo Family History Records Found Advance Directives Documents on File Type Date Recorded Patient Welt Stitcher Expl anation Advance Directive(s) 06/21/2017 10:37 AM L iving& HealthPOA Advance Directive(s) 06/21/2017 10:06 AM Advance Directive(s) 06/21/2017 10:34 AM Advance Directive(s) 06/21/2017 10:37 AM Advance Directive(s) 06/07/2017 2:46 PM Advance Directive(s) 06/06/2017 2:33 PM Documents on File Type Date Recorded Patient Welt Stitcher Expl anation Advance Directive(s) 06/21/2017 10:34 AM Advance Directive(s) 06/21/2017 10:37 AM Documents on File Type Date Recorded Patient Welt Stitcher Expl anation Advance Directive(s) 06/21/2017 10:34 AM Advance Directive(s) 06/21/2017 10:37 AM Documents on File Type Date Recorded Patient Welt Stitcher Expl anation Advance Directive(s) 06/21/2017 10:37 AM Advance Directive(s) 06/21/2017 10:34 AM Additional Source Comments (unrecognized sect ion and content) No Status Records FoundNo Status Records FoundNo Status Records FoundNo Status Records Found INFORMATION SOURCE (unrecogn ized section and content) DATE CREATED AUTHOR 08/16/[address] [facility] DATE CREATED AUTHOR AUTHOR'S ORGANIZ ATION 09/04/2017 [facility] DATE CREATED AUTHOR AUTHOR'S ORGANIZ ATION 07/29/2021 [facility] DATE CREATED AUTHOR AUTHOR'S ORGANIZ ATION 08/09/2024 [facility] Source Comments (unrecognize d section and content) In the event this informatio n is protected by the Federal Confidentiality of Alcohol and Drug Abuse Patient Records regulations: The Federal rules restrict any use of the information to criminally investigate or prosecute any alcohol or drug abuse patient.[facility] the event this information is protected by the Federal Confidentiality of Alcohol and Drug Abuse Patient Records regulations: The Federal rules restrict any use of the information to criminally investigate or prosecute any alcohol or drug abuse patient.[facility]In the event this information is protected by the Federal Confidentiality of Alcohol and Drug Abuse Patient Records regulations: The Federal rules restrict any use of the information to criminally investigate or prosecute any alcohol or drug abuse patient.[facility] the event this information is protected by the Federal Confidentiality of Alcohol and Drug Abuse Patient Records regulations: The Federal rules restrict any use of the information to criminally investigate or prosecute any alcohol or drug abuse patient.[facility]In the event this information is protected by the Federal Confidentiality of Alcohol and Drug Abuse Patient Records regulations: The Federal rules restrict any use of the information to criminally investigate or prosecute any alcohol or drug abuse patient.[facility] HospitalIn the event this information is protected by the Federal Confidentiality of Alcohol and Drug Abuse Patient Records regulations: The Federal rules restrict any use of the information to criminally investigate or prosecute any alcohol or drug abuse patient.[facility] HospitalIn the event this information is protected by the Federal Confidentiality of Alcohol and Drug Abuse Patient Records regulations: The Federal rules restrict any use of the information to criminally investigate or prosecute any alcohol or drug abuse patient.[facility] HospitalIn the event this information is protected by the Federal Confidentiality of Alcohol and Drug Abuse Patient Records regulations: The Federal rules restrict any use of the information to criminally investigate or prosecute any alcohol or drug abuse patient.[facility] HospitalIn the event this information is protected by the Federal Confidentiality of Alcohol and Drug Abuse Patient Records regulations: The Federal rules restrict any use of the information to criminally investigate or prosecute any alcohol or drug abuse patient.[facility] HospitalIn the event this information is protected by the Federal Confidentiality of Alcohol and Drug Abuse Patient Records regulations: The Federal rules restrict any use of the information to criminally investigate or prosecute any alcohol or drug abuse patient.[facility] HospitalIn the event this information is protected by the Federal Confidentiality of Alcohol and Drug Abuse Patient Records regulations: The Federal rules restrict any use of the information to criminally investigate or prosecute any alcohol or drug abuse patient.[facility] HospitalIn the event this information is protected by the Federal Confidentiality of Alcohol and Drug Abuse Patient Records regulations: The Federal rules restrict any use of the information to criminally investigate or prosecute any alcohol or drug abuse patient.[facility] HospitalIn the event this information is protected by the Federal Confidentiality of Alcohol and Drug Abuse Patient Records regulations: The Federal rules restrict any use of the information to criminally investigate or prosecute any alcohol or drug abuse patient.[facility] HospitalIn the event this information is protected by the Federal Confidentiality of Alcohol and Drug Abuse Patient Records regulations: The Federal rules restrict any use of the information to criminally investigate or prosecute any alcohol or drug abuse patient.[facility] HospitalIn the event this information is protected by the Federal Confidentiality of Alcohol and Drug Abuse Patient Records regulations: The Federal rules restrict any use of the information to criminally investigate or prosecute any alcohol or drug abuse patient.[facility] HospitalIn the event this information is protected by the Federal Confidentiality of Alcohol and Drug Abuse Patient Records regulations: The Federal rules restrict any use of the information to criminally investigate or prosecute any alcohol or drug abuse patient.[facility] HospitalIn the event this information is protected by the Federal Confidentiality of Alcohol and Drug Abuse Patient Records regulations: The Federal rules restrict any use of the information to criminally investigate or prosecute any alcohol or drug abuse patient.[facility] HospitalIn the event this information is protected by the Federal Confidentiality of Alcohol and Drug Abuse Patient Records regulations: The Federal rules restrict any use of the information to criminally investigate or prosecute any alcohol or drug abuse patient.[facility] HospitalIn the event this information is protected by the Federal Confidentiality of Alcohol and Drug Abuse Patient Records regulations: The Federal rules restrict any use of the information to criminally investigate or prosecute any alcohol or drug abuse patient.[facility] HospitalIn the event this information is protected by the Federal Confidentiality of Alcohol and Drug Abuse Patient Records regulations: The Federal rules restrict any use of the information to criminally investigate or prosecute any alcohol or drug abuse patient.[facility] HospitalIn the event this information is protected by the Federal Confidentiality of Alcohol and Drug Abuse Patient Records regulations: The Federal rules restrict any use of the information to criminally investigate or prosecute any alcohol or drug abuse patient.[facility] HospitalIn the event this information is protected by the Federal Confidentiality of Alcohol and Drug Abuse Patient Records regulations: The Federal rules restrict any use of the information to criminally investigate or prosecute any alcohol or drug abuse patient.[facility] HospitalIn the event this information is protected by the Federal Confidentiality of Alcohol and Drug Abuse Patient Records regulations: The Federal rules restrict any use of the information to criminally investigate or prosecute any alcohol or drug abuse patient.[facility] HospitalIn the event this information is protected by the Federal Confidentiality of Alcohol and Drug Abuse Patient Records regulations: The Federal rules restrict any use of the information to criminally investigate or prosecute any alcohol or drug abuse patient.[facility] HospitalIn the event this information is protected by the Federal Confidentiality of Alcohol and Drug Abuse Patient Records regulations: The Federal rules restrict any use of the information to criminally investigate or prosecute any alcohol or drug abuse patient.[facility] HospitalIn the event this information is protected by the Federal Confidentiality of Alcohol and Drug Abuse Patient Records regulations: The Federal rules restrict any use of the information to criminally investigate or prosecute any alcohol or drug abuse patient.[facility] HospitalIn the event this information is protected by the Federal Confidentiality of Alcohol and Drug Abuse Patient Records regulations: The Federal rules restrict any use of the information to criminally investigate or prosecute any alcohol or drug abuse patient.[facility] HospitalIn the event this information is protected by the Federal Confidentiality of Alcohol and Drug Abuse Patient Records regulations: The Federal rules restrict any use of the information to criminally investigate or prosecute any alcohol or drug abuse patient.[facility] HospitalIn the event this information is protected by the Federal Confidentiality of Alcohol and Drug Abuse Patient Records regulations: The Federal rules restrict any use of the information to criminally investigate or prosecute any alcohol or drug abuse patient.[facility] HospitalIn the event this information is protected by the Federal Confidentiality of Alcohol and Drug Abuse Patient Records regulations: The Federal rules restrict any use of the information to criminally investigate or prosecute any alcohol or drug abuse patient.[facility] HospitalIn the event this information is protected by the Federal Confidentiality of Alcohol and Drug Abuse Patient Records regulations: The Federal rules restrict any use of the information to criminally investigate or prosecute any alcohol or drug abuse patient.[facility] HospitalIn the event this information is protected by the Federal Confidentiality of Alcohol and Drug Abuse Patient Records regulations: The Federal rules restrict any use of the information to criminally investigate or prosecute any alcohol or drug abuse patient.[facility] HospitalIn the event this information is protected by the Federal Confidentiality of Alcohol and Drug Abuse Patient Records regulations: The Federal rules restrict any use of the information to criminally investigate or prosecute any alcohol or drug abuse patient.[facility] Reason for Visit (unrecogniz ed section and content) Reason Onset Date Comments [facility] 06/09/2021 Offboarding Reason Comments Cough x3 wks, reported SOB , denied chest pain Nasal Congestion intermittent Bone AM p ain rated 8, x3 wks Reason Onset Date Comments Refill Request 09/05/2021 Reason Onset Date Comments Refill Request 02/13/2022 Reason Comments Established Patient Follow Up Reason Onset Date Comments Refill Request 03/14/2022 Reason Comments New Patient Evaluation Self referred to re-establish for his RAIZA. He needs a new sleep study due to 3% score for his last one and also need replacement PAP device. Reason Comments Patient Update BP Reason Comments Orders Reason Onset Date Comments [facility] 07/07/2022 ACO No PCP List Reason Comments Patient Update Compliance report Reason Comments Medication Problem Needs early fill of Vimpat d/t vacation Reason Onset Date Comments [facility] 05/28/2023 ACO NO PCP Reason Comments Orders Faxed office note da bear 03/12/2023 to [facility] Patrizia at [phone]. Reason Comments PAP Therapy Follow Up 06/06/23 - 07/05/23 Reason Comments Follow Up Reason Onset Date Comments [facility] 07/25/2023 ACO No PCP Reason Onset Date Comments Refill Request 09/25/2023 Reason Onset Date Comments Refill Request 09/27/2023 Reason Comments CMN Reason Comments Orders Faxed signed CMN and signed office notes. Refaxed office note dated 03/12/2023 that was originally sent on 06/01/2023 to [facility] at [phone]. Reason Onset Date Comments Refill Request 04/02/2024 Reason Comments Cough Cough, sinus, conges tion, ST and BONE x 1 week Reason Comments Cough Chest congestion, SO B, wheeze, moist cough, headache, chest tightness x 10 days + Reason Comments Refill Request FOR RECORDS PERTAINING TO PATIENTS WHO ARE OR HAVE BEEN ENROLLED IN A CHEMICAL DEPENDENCY/SUBSTANCEABUSE PROGRAM, SOME INFORMATION MAY BE OMITTED. This clinical summary was aggregated from multiple sources. Caution should be exercised in using it in the provision of clinical care. This summary normalizes information from multiple sources, and as a consequence, information in this document may materially change the coding, format and clinical context of patient data. In addition, data may be omitted in some cases. CLINICAL DECISIONS SHOULD BE BASED ON THE PRIMARY CLINICAL RECORDS. [employer] provides no warranty or guarantee of the accuracy or completeness of information in this document.
[2024-11-15 13:47] LABS: Partial Thromboplast Time 25.9 Seconds (24.1-36.2)
[2024-11-15 13:52] LABS: Anion Gap 10 (5-15); BUN 15 mg/dL (4-19); BUN/Creat Ratio 14.9 RATIO (10-20); Calcium,Total 8.8 mg/dL (7.6-11.0); Carbon Dioxide 21.7 mmol/L (21.0-32.0); Chloride 112 mmol/L (98-108); Glucose 124 mg/dL (70-99); Potassium 3.7 mmol/L (3.3-5.1)
[2024-11-15 14:21] VITALS: BP 113/80; PULSE 70; RESP 16; O2SAT 98
[2024-11-15 14:57] VITALS: BP 113/80; PULSE 70; RESP 16; TEMP 36.8; O2SAT 98
== END 2024-11-15 15:06 | disposition home or self-care (01) ==
PROVIDERS: Emergency Provider Emergency Medicine; Visit Provider Emergency Medicine
DX: S40.021A Contusion of right upper arm, initial encounter (principal); S50.811A Abrasion of right forearm, initial encounter; R60.9 Edema, unspecified; X58.XXXA Exposure to other specified factors, initial encounter; R41.3 Other amnesia
CPT/HCPCS: 80048; 83605; 85025; 85610; 85730; 87040; 99283; A4216